=== PATIENT | female | born 1985 | race Caucasian/White ===

== ENCOUNTER 2016-04-26 15:10 | Emergency (ER) | payer OTHER ==
[~2016-04-26 15:10] MED LIST: ADDE25CA PO; ALBU17IN INH; DOXY10CA PO
--- NOTE | 2016-04-26 17:01 | EDDOCDS ---
Nurse's Notes [facility] Name: Caitlin Figueroa Age: 30 yrs Sex: Female : 1985 Arrival Date: 04/26/2016 Time: 15:10 Bed TR8 Private MD: Aman Grant Diagnosis: Cutaneous abscess of left axilla Presentation: 04/26 15:17 Presenting complaint: Patient states: Pt presents with c/o abscess left axilla x 4 dls days. Pt states very painful. Adult Sepsis Screening: The patient does not have new or worsening altered mentation. Patient's respiratory rate is less than 22. Systolic blood pressure is greater than 100. Patient has a qSOFA score of 0- Negative Sepsis Screen. Suicide/Homicide risk assessment- the patient denies having any suicidal and/or homicidal ideations and does not present with any other emotional, behavioral or mental health complaints. Status: Patient is not a director of career services or dependent. Transition of care: patient was not received from another setting of care. 15:17 Acuity: CAPRI Level 4 dls 15:17 Method Of Arrival: Walkin/Carried/Asstd dls Triage Assessment: 15:20 General: Appears in no apparent distress, well nourished, well groomed, Behavior is dls cooperative. Pain: Pain currently is 10 out of 10 on a pain scale. Pt Declines HIV testing. 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 albuterol sulfate 90 mcg/actuation Inhl HFAA 2 puffs as needed Ran Out of this med 2. Chantix 1 mg Oral tab 1 tab 2 times per day - PMHx: Bronchitis; Migraines; - Social history: Smoking status: Patient uses tobacco products, light tobacco smoker. No barriers to communication noted, The patient speaks fluent Dutch. - Family history: Not pertinent. - : The pt / caregiver states he / she is not on anticoagulants. Home medication list is obtained from the patient. - Exposure Risk Screening:: None identified. Screenin:54 Screening information is obtained from the patient. Fall risk: No risks identified. ms18 Assistance ADL's: requires no assistance with activities of daily living. Abuse/DV Screen: The patient / caregiver reports he/she is: not in a situation that causes fear, pain or injury. Nutritional screening: No deficits noted. Advance Directives: There is no living will. home support is adequate. Assessment: 16:54 General: Appears in no apparent distress, comfortable, obese, Behavior is appropriate ms18 for age, cooperative, pleasant. Pain: Location: left axilla Pain currently is 7 out of 10 on a pain scale. Neurological: Level of Consciousness is awake, alert, obeys commands, Oriented to person, place, time. Respiratory: Airway is patent Respiratory effort is even, unlabored. Derm: Skin is pink, warm & dry. abscess noted in pt's L axilla area. Vital Signs: 15:11 BP 148 / 73; Pulse 120; Resp 20 S; Temp 97.3(O); Pulse Ox 96% on R/A; Weight 104.33 kg dd6 (R); Height 5 ft. 5 in. (165.10 cm) (R); 16:49 BP 154 / 88; Pulse 111; Resp 18; Temp 98.5; Pulse Ox 96% on R/A; Pain 0/10; ms18 15:11 Body Mass Index 38.27 (104.33 kg, 165.10 cm) dd6 Vitals: 15:11 Log In Time: April 26, 2016 at 15:09. dd6 ED Course: 15:11 Patient visited by Gilbert Marie PCA. dd6 15:11 Aman Grant MD is Private Physician. dd6 15:11 Patient moved to Waiting dd6 15:12 Patient moved to Pre RCE dd6 15:18 Triage Initiated dls 16:19 Patient moved to Triage 2 ct3 16:29 [facility]born [facility] dk1 16:29 Joi Mcbride MD is Attending Physician. dk1 16:34 Patient visited by Geremias Osborn PA-C. dk1 16:49 Patient visited by Cindi Sams RN. ms18 16:53 Patient moved to TR8 ms18 16:54 Patient visited by Cindi Sams RN. ms18 16:54 The patient / caregiver is instructed regarding the plan of care and ED course. Patient ms18 has correct armband on for positive identification. Property sent home with patient. :Personal belongings accompany Pt. 16:54 No IV's were initiated during this patient's visit. No procedures done that require ms18 assistance. Order Results: There are currently no results for this order. Outcome: 16:45 Discharge ordered by Provider. dk1 16:54 Discharge Assessment: Patient awake, alert and oriented x 3. No cognitive and/or ms18 functional deficits noted. Patient verbalized understanding of disposition instructions. patient administered narcotics - no. The following High Risk Discharge criteria are identified: None. Discharged to home ambulatory. Condition: good Condition: stable Condition: improved. Discharge instructions given to patient, Instructed on discharge instructions, follow up and referral plans. medication usage, Demonstrated understanding of instructions, medications, Pt was receptive of discharge instructions/ teaching. Prescriptions given X 2. No special radiology studies were completed. 16:59 Patient left the ED. ms18 Signatures: Livier Paris, RN RN Geremias Smith PA-C PA-C dk1 Gilbert Marie, TOOL ROOM LATHE OPERATOR TOOL ROOM LATHE OPERATOR dd6 Kaycee Nye, TOOL ROOM LATHE OPERATOR TOOL ROOM LATHE OPERATOR ct3 Cindi Sams RN RN ms18 Corrections: (The following items were deleted from the chart) 16:59 16:54 Discharge instructions given to patient, Instructed on discharge instructions, ms18 follow up and referral plans. medication usage, Demonstrated understanding of instructions, medications, Pt was receptive of discharge instructions/ teaching. Prescriptions given X 1, ms18 MTDD
--- NOTE | 2016-04-26 17:01 | EDDOCDS ---
Physician Documentation [facility] Name: Caitlin Figueroa Age: 30 yrs Sex: Female : 1985 Arrival Date: 04/26/2016 Time: 15:10 Bed TR8 Private MD: Aman Grant Disposition: 04/26/16 16:45 Discharged to Home/Self Care. Impression: Cutaneous abscess of left axilla. - Condition is Stable. - Discharge Instructions: Abscess. - Prescriptions for Tylenol- Codeine #3 300-30 mg Oral Tablet - take 2 tablet by ORAL route every 6 hours As needed MDD: 4 tabs; 6 tablet. Bactrim DS 800- 160 mg Oral Tablet - take 1 tablet by ORAL route every 12 hours for 10 days; 20 tablet. - Medication Reconciliation, Local Pharmacy Hours form. - Follow up: Emergency Department; When: 1 - 2 days; Reason: Recheck today's complaints. - Problem is new. - Symptoms are unchanged. Historical: - Allergies: Tamiflu; - Home Meds: 1. albuterol sulfate 90 mcg/actuation Inhl HFAA 2 puffs as needed Ran Out of this med 2. Chantix 1 mg Oral tab 1 tab 2 times per day - PMHx: Bronchitis; Migraines; - Social history: Smoking status: Patient uses tobacco products, light tobacco smoker. No barriers to communication noted, The patient speaks fluent Croatian. - Family history: Not pertinent. - : The pt / caregiver states he / she is not on anticoagulants. Home medication list is obtained from the patient. - Exposure Risk Screening:: None identified. 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 5 in. (165.10 cm) (R); 16:49 BP 154 / 88; Pulse 111; Resp 18; Temp 98.5; Pulse Ox 96% on R/A; Pain 0/10; ms18 15:11 Body Mass Index 38.27 (104.33 kg, 165.10 cm) dd6 Signatures: Livier Paris RN RN dls Geremias Osborn PA-C PA-C dk1 Cindi Sams,ZULLY RN ms18 MTDD
--- NOTE | 2016-04-28 18:00 | EDDOCDS ---
Physician Documentation [facility] Name: Caitlin Figueroa Age: 30 yrs Sex: Female : 1985 Arrival Date: 04/26/2016 Time: 15:10 Bed TR8 Private MD: Aman Grant Disposition: 04/26/16 16:45 Discharged to Home/Self Care. Impression: Cutaneous abscess of left axilla. - Condition is Stable. - Discharge Instructions: Abscess. - Prescriptions for Tylenol- Codeine #3 300-30 mg Oral Tablet - take 2 tablet by ORAL route every 6 hours As needed MDD: 4 tabs; 6 tablet. Bactrim DS 800- 160 mg Oral Tablet - take 1 tablet by ORAL route every 12 hours for 10 days; 20 tablet. - Medication Reconciliation, Local Pharmacy Hours form. - Follow up: Emergency Department; When: 1 - 2 days; Reason: Recheck today's complaints. - Problem is new. - Symptoms are unchanged. Historical: - Allergies: Tamiflu; - Home Meds: 1. albuterol sulfate 90 mcg/actuation Inhl HFAA 2 puffs as needed Ran Out of this med 2. Chantix 1 mg Oral tab 1 tab 2 times per day - PMHx: Bronchitis; Migraines; - Social history: Smoking status: Patient uses tobacco products, light tobacco smoker. No barriers to communication noted, The patient speaks fluent Indonesian. - Family history: Not pertinent. - : The pt / caregiver states he / she is not on anticoagulants. Home medication list is obtained from the patient. - Exposure Risk Screening:: None identified. 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 5 in. (165.10 cm) (R); 16:49 BP 154 / 88; Pulse 111; Resp 18; Temp 98.5; Pulse Ox 96% on R/A; Pain 0/10; ms18 15:11 Body Mass Index 38.27 (104.33 kg, 165.10 cm) dd6 MDM: 17:03 [facility] Payment Agreement was scanned into [employer] and attached to record. [facility] 17:03 Financial registration complete. gjb 04/27 06:05 T-Sheet-- Draft Copy was scanned into [employer] and attached to record. obinna Signatures: Livier Paris, RN RN Geremias Smith, PAMikeC PAMikeC dk1 Cindi Sams RN RN ms18 Arel, Jasmin Judge The chart was reviewed and I authenticate all verbal orders and agree with the evaluation and treatment provided.Attachments: 04/26 17:03 [place] Payment Agreement b 04/27 06:05 T-Sheet-- Draft Copy obinna Chart Complete MTDD
--- NOTE | 2016-04-28 18:00 | EDDOCDS ---
Nurse's Notes [facility] Name: Caitlin Figueroa Age: 30 yrs Sex: Female : 1985 Arrival Date: 04/26/2016 Time: 15:10 Bed TR8 Private MD: Aman Grant Diagnosis: Cutaneous abscess of left axilla Presentation: 04/26 15:17 Presenting complaint: Patient states: Pt presents with c/o abscess left axilla x 4 dls days. Pt states very painful. Adult Sepsis Screening: The patient does not have new or worsening altered mentation. Patient's respiratory rate is less than 22. Systolic blood pressure is greater than 100. Patient has a qSOFA score of 0- Negative Sepsis Screen. Suicide/Homicide risk assessment- the patient denies having any suicidal and/or homicidal ideations and does not present with any other emotional, behavioral or mental health complaints. Status: Patient is not a director of customer service or dependent. Transition of care: patient was not received from another setting of care. 15:17 Acuity: CAPRI Level 4 dls 15:17 Method Of Arrival: Walkin/Carried/Asstd dls Triage Assessment: 15:20 General: Appears in no apparent distress, well nourished, well groomed, Behavior is dls cooperative. Pain: Pain currently is 10 out of 10 on a pain scale. Pt Declines HIV testing. 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 albuterol sulfate 90 mcg/actuation Inhl HFAA 2 puffs as needed Ran Out of this med 2. Chantix 1 mg Oral tab 1 tab 2 times per day - PMHx: Bronchitis; Migraines; - Social history: Smoking status: Patient uses tobacco products, light tobacco smoker. No barriers to communication noted, The patient speaks fluent Turkmen. - Family history: Not pertinent. - : The pt / caregiver states he / she is not on anticoagulants. Home medication list is obtained from the patient. - Exposure Risk Screening:: None identified. Screenin:54 Screening information is obtained from the patient. Fall risk: No risks identified. ms18 Assistance ADL's: requires no assistance with activities of daily living. Abuse/DV Screen: The patient / caregiver reports he/she is: not in a situation that causes fear, pain or injury. Nutritional screening: No deficits noted. Advance Directives: There is no living will. home support is adequate. Assessment: 16:54 General: Appears in no apparent distress, comfortable, obese, Behavior is appropriate ms18 for age, cooperative, pleasant. Pain: Location: left axilla Pain currently is 7 out of 10 on a pain scale. Neurological: Level of Consciousness is awake, alert, obeys commands, Oriented to person, place, time. Respiratory: Airway is patent Respiratory effort is even, unlabored. Derm: Skin is pink, warm & dry. abscess noted in pt's L axilla area. Vital Signs: 15:11 BP 148 / 73; Pulse 120; Resp 20 S; Temp 97.3(O); Pulse Ox 96% on R/A; Weight 104.33 kg dd6 (R); Height 5 ft. 5 in. (165.10 cm) (R); 16:49 BP 154 / 88; Pulse 111; Resp 18; Temp 98.5; Pulse Ox 96% on R/A; Pain 0/10; ms18 15:11 Body Mass Index 38.27 (104.33 kg, 165.10 cm) dd6 Vitals: 15:11 Log In Time: April 26, 2016 at 15:09. dd6 ED Course: 15:11 Patient visited by Gilbert Marie PCA. dd6 15:11 Aman Grant MD is Private Physician. dd6 15:11 Patient moved to Waiting dd6 15:12 Patient moved to Pre RCE dd6 15:18 Triage Initiated dls 16:19 Patient moved to Triage 2 ct3 16:29 [facility] Osborn [facility]-C [facility]. dk1 16:29 Joi Mcbride MD is Attending Physician. dk1 16:34 Patient visited by Geremias Osborn PA-C. dk1 16:49 Patient visited by Cindi Sams RN. ms18 16:53 Patient moved to TR8 ms18 16:54 Patient visited by Cindi Sams RN. ms18 16:54 The patient / caregiver is instructed regarding the plan of care and ED course. Patient ms18 has correct armband on for positive identification. Property sent home with patient. :Personal belongings accompany Pt. 16:54 No IV's were initiated during this patient's visit. No procedures done that require ms18 assistance. 17:03 [facility] Payment Agreement was scanned into LRN and attached to record. dayanna 04/27 06:05 T-Sheet-- Draft Copy was scanned into LRN and attached to record. ljderrek Order Results: There are currently no results for this order. Outcome: 04/26 16:45 Discharge ordered by Provider. dk1 16:54 Discharge Assessment: Patient awake, alert and oriented x 3. No cognitive and/or ms18 functional deficits noted. Patient verbalized understanding of disposition instructions. patient administered narcotics - no. The following High Risk Discharge criteria are identified: None. Discharged to home ambulatory. Condition: good Condition: stable Condition: improved. Discharge instructions given to patient, Instructed on discharge instructions, follow up and referral plans. medication usage, Demonstrated understanding of instructions, medications, Pt was receptive of discharge instructions/ teaching. Prescriptions given X 2. No special radiology studies were completed. 16:59 Patient left the ED. ms18 Signatures: Livier Paris, RN RN Geremias Smith, PAMikeC PA-C dk1 Gilbert Marie, COMMISSION AUDITOR COMMISSION AUDITOR dd6 Kaycee Nye, COMMISSION AUDITOR COMMISSION AUDITOR ct3 Cindi SamsRN RN ms18 Arel, Jasmin Judge Corrections: (The following items were deleted from the chart) 16:59 16:54 Discharge instructions given to patient, Instructed on discharge instructions, ms18 follow up and referral plans. medication usage, Demonstrated understanding of instructions, medications, Pt was receptive of discharge instructions/ teaching. Prescriptions given X 1, ms18 Chart Complete MTDD
--- NOTE | 2016-04-28 18:00 | EDDOCDS ---
Physician Documentation [facility] Name: Caitlin Figueroa Age: 30 yrs Sex: Female : 1985 Arrival Date: 04/26/2016 Time: 15:10 Bed TR8 Private MD: Aman Grant Disposition: 04/26/16 16:45 Discharged to Home/Self Care. Impression: Cutaneous abscess of left axilla. - Condition is Stable. - Discharge Instructions: Abscess. - Prescriptions for Tylenol- Codeine #3 300-30 mg Oral Tablet - take 2 tablet by ORAL route every 6 hours As needed MDD: 4 tabs; 6 tablet. Bactrim DS 800- 160 mg Oral Tablet - take 1 tablet by ORAL route every 12 hours for 10 days; 20 tablet. - Medication Reconciliation, Local Pharmacy Hours form. - Follow up: Emergency Department; When: 1 - 2 days; Reason: Recheck today's complaints. - Problem is new. - Symptoms are unchanged. Historical: - Allergies: Tamiflu; - Home Meds: 1. albuterol sulfate 90 mcg/actuation Inhl HFAA 2 puffs as needed Ran Out of this med 2. Chantix 1 mg Oral tab 1 tab 2 times per day - PMHx: Bronchitis; Migraines; - Social history: Smoking status: Patient uses tobacco products, light tobacco smoker. No barriers to communication noted, The patient speaks fluent Tristanian. - Family history: Not pertinent. - : The pt / caregiver states he / she is not on anticoagulants. Home medication list is obtained from the patient. - Exposure Risk Screening:: None identified. 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 5 in. (165.10 cm) (R); 16:49 BP 154 / 88; Pulse 111; Resp 18; Temp 98.5; Pulse Ox 96% on R/A; Pain 0/10; ms18 15:11 Body Mass Index 38.27 (104.33 kg, 165.10 cm) dd6 MDM: 17:03 [facility] Payment Agreement was scanned into [employer] and attached to record. [facility] 17:03 Financial registration complete. gjb 04/27 06:05 T-Sheet-- Draft Copy was scanned into [employer] and attached to record. obinna Signatures: Livier Paris, RN RN Geremias Smith, PAMikeC PAMkieC dk1 Cindi Sams RN RN ms18 Arel, Jasmin Judge The chart was reviewed and I authenticate all verbal orders and agree with the evaluation and treatment provided.Attachments: 04/26 17:03 [place] Payment Agreement b 04/27 06:05 T-Sheet-- Draft Copy obinna Chart Complete MTDD
== END 2016-04-26 16:59 | disposition home or self-care (01) ==
LOC: M ED 15:10
DX: L02.412 Cutaneous abscess of left axilla (principal); G43.909 Migraine, unspecified, not intractable, without status migrainosus; Z72.0 Tobacco use; Z79.899 Other long term (current) drug therapy; Z88.8 Allergy status to other drugs, medicaments and biological substances

== ENCOUNTER 2016-06-28 14:44 | Emergency (ER) | payer OTHER ==
[~2016-06-28] VITALS: Ht 165.1 cm; Wt 104.3 kg
[2016-06-28 14:45] VITALS: BP 127/88
== END 2016-06-28 15:25 | disposition left against medical advice (07) ==
LOC: M ED 15:15
DX: R06.02 Shortness of breath (principal); Z88.8 Allergy status to other drugs, medicaments and biological substances; Z79.899 Other long term (current) drug therapy; Z53.29 Procedure and treatment not carried out because of patient's decision for other reasons

== ENCOUNTER → 2016-08-07 | Emergency (ER) | payer OTHER ==
[~2016-08-07] VITALS: Ht 165.1 cm; Wt 108.9 kg
[2016-08-07 01:20] VITALS: BP 145/94
== END | disposition left against medical advice (07) ==
LOC: M ED 02:17
DX: R22.1 Localized swelling, mass and lump, neck (principal); Z53.21 Procedure and treatment not carried out due to patient leaving prior to being seen by health care provider

== ENCOUNTER 2016-08-10 18:08 | Emergency (ER) | payer OTHER ==
[~2016-08-10] VITALS: Ht 165.1 cm; Wt 107.0 kg
[2016-08-10] MEDS ORDERED: ADDE25CA PO (18:20)
[2016-08-10 20:17] VITALS: BP 132/66
== END 2016-08-10 20:15 | disposition home or self-care (01) ==
LOC: M ED 19:15
DX: L02.11 Cutaneous abscess of neck (principal); L03.221 Cellulitis of neck

== ENCOUNTER 2016-10-12 16:35 | Day surgery (SDC) | payer OTHER ==
[~2016-10-12] VITALS: Ht 165.1 cm; Wt 103.9 kg
[2016-10-12] MEDS ORDERED: INCR1INH INH (16:49)
[2016-10-12] MEDS ORDERED: NS 1,000 ML IV SCH (16:58)
[2016-10-12] MEDS ORDERED: ONDANSETRON 4MG/2ML VIAL (J2405) IV ONE (17:00)
[2016-10-12] MEDS: MORPHINE 2 MG/ML 1ML SYRINGE IV PRN ×4 (17:28→23:06)
[2016-10-12 17:47] LABS: BASO # 0.1 K/mm3 (0.0-0.2); BASO % 0.7 % (0.0-1.0); EOS # 0.5 K/mm3 (0.0-0.50); EOS % 3.5 % (0.0-3.0); LARGE UNSTAINED CELL # 0.2 K/mm3 (0.0-0.4); LARGE UNSTAINED CELL % 1.6 % (0.0-4.0); LYMPH # 3.5 K/mm3 (1.5-4.5); LYMPH % 25.6 % (24.0-44.0); MEAN CORPUSCULAR HEMOGLOBIN 28.6 pg (27.0-33.0); MEAN CORPUSCULAR VOLUME 84.3 fl (80.0-96.0); MONO # 0.5 K/mm3 (0.0-0.8); NEUTROPHILS # 8.7 K/mm3 (1.8-7.7); NEUTROPHILS % 64.5 % (36.0-66.0); PLATELET COUNT, AUTOMATED 338 k/mm3 (150-450); RED CELL DISTRIBUTION WIDTH 12.8 % (11.5-14.5); WHITE BLOOD COUNT 13.5 K/mm3 (4.0-10.0)
[2016-10-12 17:56] LABS: CONTROL LINE HCG INT CTR LINE PRESENT
[2016-10-12 18:03] LABS: ALBUMIN 3.5 GM/DL (3.2-5.2); ALBUMIN/GLOBULIN RATIO 1.03 (1.00-1.93); ALKALINE PHOSPHATASE 86 U/L (45-117); ALT/SGPT 22 U/L (12-78); ANION GAP 4 MEQ/L (8-16); AST/SGOT 16 U/L (15-37); BILIRUBIN,DIRECT < 0.1 MG/DL (0.0-0.2); BILIRUBIN,TOTAL 0.3 MG/DL (0.2-1.0); BLOOD UREA NITROGEN 10 MG/DL (7-18); CALCIUM LEVEL 8.6 MG/DL (8.5-10.1); CARBON DIOXIDE LEVEL 29 MEQ/L (21-32); CHLORIDE LEVEL 105 MEQ/L (98-107); CREATININE FOR GFR 0.76 MG/DL (0.55-1.02); GLOMERULAR FILTRATION RATE > 60.0 (>60); GLUCOSE, FASTING 101 MG/DL (70-105); POTASSIUM SERUM 3.9 MEQ/L (3.5-5.1); SODIUM LEVEL 138 MEQ/L (136-145); TOTAL PROTEIN 6.9 GM/DL (6.4-8.2)
--- NOTE | 2016-10-12 18:30 | REPUSA ---
CT of the abdomen and pelvis without contrast Clinical statement: Pain. Technique: Multiple axial CT images were obtained from the base of the lungs to the floor of the pelv is utilizing 5 mm axial slices without administration of contrast. Coronal and sagittal reconstructio ns were also obtained. Comparison: 05/08/2012. Findings: Chest: The visualized lung bases are clear. Abdomen: The kidneys are normal in size bilaterally. There is no evidence of hydronephrosis or nephro lithiasis. The liver, spleen, pancreas, gallbladder and adrenal glands are unremarkable. The aorta de monstrates normal caliber and contour. There is no abdominal lymphadenopathy or ascites. Pelvis: The appendix is thickened and inflamed, measuring 12 mm. No surrounding fluid is appreciated. The remainder of the bowel is unremarkable. The urinary bladder is within normal limits. There is no pelvic lymphadenopathy or ascites. There is a simple right ovarian cyst measuring 3.3 x 3.4 cm. The other pelvic structures appear unremarkable. Bones: There are no suspicious osseous abnormalities seen. Impression: 1. Early acute appendicitis. No evidence of abscess or perforation. 2. Simple right ovarian cyst.
[2016-10-12] MEDS ORDERED: TIZA4CAP3 PO (19:12)
[2016-10-12] MEDS ORDERED: ACETAMINOPHEN TAB 650MG DOSE (2X325MG) PO PRN (19:15)
[2016-10-12] MEDS ORDERED: ONDANSETRON 4MG/2ML VIAL (J2405) IV PRN (19:15)
[2016-10-12] MEDS ORDERED: NORCO, ANEXSIA 5/325MG TABLET (HYDROcodone/ACETAMINOPHEN) PO PRN (19:15)
[2016-10-12] MEDS: LR 1,000 ML IV SCH (19:28)
[2016-10-12] MEDS ORDERED: DOXY100T PO (19:39)
[2016-10-12 21:31] VITALS: BP 127/76
[2016-10-12] MEDS: SENOKOT S TAB PO SCH (22:11)
[2016-10-12] MEDS: metroNIDAZOLE 500 MG in APPROPRIATE DILUENT 1 EA IV SCH (22:11)
[2016-10-12] MEDS: CIPROFLOXACIN 400 MG in APPROPRIATE DILUENT 1 EA IV SCH (23:06)
[2016-10-13] VITALS (9 sets, daily range): BP systolic 133–178; BP diastolic 78–110
--- NOTE | 2016-10-13 04:30 | HPEPDOC ---
General Surgery H&P Date of Admission Oct 12, 2016 at 20:28 History and Physical CHIEF COMPLAINT: Abdominal pain HISTORY OF PRESENT ILLNESS: Patient presents to the emergency room he complains of today history of right-sided lower abdominal pain, nausea and vomiting. Patient reports sudden onset of crampy, then later on becoming sharp and constant right lower quadrant abdominal pain. She reports being nauseated, anorexic with a couple episodes of vomiting. She denies any sick contacts. She denies any prior episodes of similar symptoms. She was seen in the emergency room was evaluated and was found to have evidence for acute appendicitis. ALLERGIES: Please see below. HOME MEDICATIONS: Please see below. PAST MEDICAL HISTORY: ADHD Hyperglycemia PAST SURGICAL HISTORY: Laparoscopic epigastric and umbilical hernia repair (2009 protects composite 20 x 15 cm mesh was placed) PERSONAL/SOCIAL HISTORY: [Denies smoking, alcohol use, or recreational drug use] . REVIEW OF SYSTEMS: GENERAL: [Denies chills, fatigue, fever, weight gain and weight loss]. HEENT: [Denies blurred vision and double vision. Denies ear symptoms. Denies hoarseness]. NECK: [Denies any neck pain]. CARDIOVASCULAR: [Denies chest pain and palpitations]. MUSCULOSKELETAL: [Denies arthralgias, back pain and thrombophlebitis]. SKIN: [Denies rash]. NEUROLOGIC: [Denies headache, stroke and transient ischemic attack]. PSYCHIATRIC: [Denies anxiety and depression]. ENDOCRINE: [Denies thyroid disease]. HEMATOLOGY/ONCOLOGY: [Denies any bleeding or clotting disorder]. HEART: [Denies any chest pains, palpitations, paroxysmal dyspnea, orthopnea]. PULMONARY: [Denies chronic cough, dyspnea and wheezing]. GASTROINTESTINAL: [Denies rectal bleeding, family history of colon cancer, constipation, diarrhea, dysphagia, heartburn and jaundice]. GENITOURINARY: [Denies dysuria, frequency, hematuria and nocturia]. ENDOCRINE: [Denies polydipsia, polyphagia, polyuria, heat or cold intolerance]. INFECTIOUS: [Denies any recent upper respiratory tract infection, UTI, need for use of antibiotics]. NUTRITION: [Reports good appetite]. PHYSICAL EXAMINATION: VITAL SIGNS: Please see below. GENERAL APPEARANCE: [Patient seen at bedside, appears comfortable. Awake, alert , oriented]. HEENT: [Normocephalic, atraumatic. [place] palpebral conjunctivae. Anicteric sclerae. Lips moist]. CHEST: [No chest wall abnormalities. Normal respiratory motion/effort]. NECK: [Supple. No thyromegaly. No lymphadenopathies]. LUNGS: [Lung sounds are clear to auscultation bilaterally. No wheezing appreciated]. HEART: [No chest wall abnormalities. Heart rate and rhythm are regular with no murmurs]. ABDOMEN: [Abdomen is obese, soft, slightly rounded. No hepatosplenomegaly. No umbilical or groin herniations, nondistended. Tender to palpation over right lower quadrant area with localized guarding nontender in other areas of the abdomen. SKIN: [Warm, moist]. EXTREMITIES: [Extremities have no deformities. No edema identified]. NEUROLOGICAL: . ANCILLARIES: . LABORATORY DATA: Please see below. MICROBIOLOGY: Please see below. IMAGING: CT of the abdomen and pelvis The appendix is thickened and inflamed, measuring 12 mm. No surrounding fluid is appreciated. The remainder of the bowel is unremarkable. The urinary bladder is within normal limits. There is no pelvic lymphadenopathy or ascites. There is a simple right ovarian cyst measuring 3.3 x 3.4 cm. The other pelvic structures appear unremarkable. Bones: There are no suspicious osseous abnormalities seen. IMPRESSION AND PLAN: Acute appendicitis with localized peritonitis Unfortunately patient ate while she was in the emergency room right after the CT scan was taken thus we could not take her to the operating room at least 4 the next 6-8 hours to empty out her stomach. She'll be started on IV antibiotics for coverage of the acute appendicitis and we will take her to the operating room once able to do so. We'll provide her with some pain medications and antinausea medication to keep her comfortable. CT scan shows early acute appendicitis. She was advised for need for surgery. Details of procedure its risks and benefits were discussed with the patient. Anticipate some adhesions related to the presence of the mesh on the midline of her abdomen which may make the surgery difficult. Length of stay with most likely depend on how inflamed the appendix is and how she does postoperatively.. Vital Signs Vital Signs Date Time Temp Pulse Resp B/P (MAP) Pulse Ox O2 Delivery O2 Flow Rate FiO2 10/12/16 23:16 18 Room Air 10/12/16 21:31 98.1 91 127/76 (93) 96 I&Os I&O- Last 24 Hours up to 6 AM 10/13/16 06:00 Intake Total 1213 ml Output Total 100 ml Balance 1113 ml Laboratory Data Labs 24H Laboratory Tests 2 10/12/16 17:26: White Blood Count 13.5H, Red Blood Count 4.66, Hemoglobin 13.3, Hematocrit 39.2 , Mean Corpuscular Volume 84.3, Mean Corpuscular Hemoglobin 28.6, Mean Corpuscular Hemoglobin Concent 34.0, Red Cell Distribution Width 12.8, Platelet Count 338, Neutrophils (%) (Auto) 64.5, Lymphocytes (%) (Auto) 25.6, Monocytes ( %) (Auto) 4.0, Eosinophils (%) (Auto) 3.5H, Basophils (%) (Auto) 0.7, Neutrophils # (Auto) 8.7H, Lymphocytes # (Auto) 3.5, Monocytes # (Auto) 0.5, Eosinophils # (Auto) 0.5, Basophils # (Auto) 0.1, Large Unclassified Cells % 1.6 , Large Unclassified Cells # 0.2, Urine Appearance HAZY, Urine Color YELLOW, Urine pH 5.0, Urine Specific [place] 1.024, Urine Protein NEGATIVE, Urine Glucose (UA) NEGATIVE, Urine Ketones TRACEH, Urine Urobilinogen 0.2, Urine Bilirubin NEGATIVE, Urine Leukocyte Esterase NEGATIVE, Urine Blood NEGATIVE, Urine Nitrite NEGATIVE, Urine WBC (Auto) 1, Urine RBC (Auto) 3, Urine Hyaline Casts (Auto) 0, Urine Bacteria (Auto) 1+H, Urine Squamous Epithelial Cells 4, Urine Mucus (Auto) SMALL, Urine Sperm (Auto) , Anion Gap 4L, Glomerular Filtration Rate > 60.0, Calcium Level 8.6, Aspartate Amino Transf (AST/SGOT) 16 , Alanine Aminotransferase (ALT/SGPT) 22, Alkaline Phosphatase 86, Total Bilirubin 0.3, Direct Bilirubin < 0.1, Total Protein 6.9, Albumin 3.5, Albumin/ Globulin Ratio 1.03, Lipase 185, Human Chorionic Gonadotropin, Qual NEGATIVE CBC/BMP Laboratory Tests 10/12/16 17:26 Red Blood Count 4.66, Mean Corpuscular Volume 84.3, Mean Corpuscular Hemoglobin 28.6, Mean Corpuscular Hemoglobin Concent 34.0, Red Cell Distribution Width 12.8 , Neutrophils (%) (Auto) 64.5, Lymphocytes (%) (Auto) 25.6, Monocytes (%) (Auto ) 4.0, Eosinophils (%) (Auto) 3.5 H, Basophils (%) (Auto) 0.7, Neutrophils # ( Auto) 8.7 H, Lymphocytes # (Auto) 3.5, Monocytes # (Auto) 0.5, Eosinophils # ( Auto) 0.5, Basophils # (Auto) 0.1 Microbiology Microbiology 10/12/16 Urine Culture, Received Pending Home Medications Scheduled (Incruse Ellipta) 62.5 Mcg/Inh Inh, 62.5 MCG INH DAILY, (Reported) Amphetamine/Dextroamphetamine (Adderall Xr 25 mg) 1 Cap Cap, 1 CAP PO DAILY, ( Reported) Doxycycline Hyclate (Doxycycline Hyclate) 100 Mg Tab, 100 MG PO BID, (Reported) Scheduled PRN Albuterol Sulfate (Ventolin Hfa) 200 Puff/8 Gm Aers, 2 PUFF INH Q4H PRN for SHORTNESS OF BREATH, (Reported) PT ALL OUT Tizanidine Hydrochloride (Tizanidine HCl) 4 Mg Cap, 4 MG PO TID PRN for MUSCLE SPASMS, (Reported) Allergies Coded Allergies: Oseltamivir (Unverified Adverse Reaction, Unknown, VOMIT, 01/29/16) LAILA FITZPATRICK MD Oct 13, 2016 04:23
[2016-10-13] MEDS: LR 1,000 ML IV SCH ×2 (05:47→11:10)
[2016-10-13] MEDS: NORCO, ANEXSIA 5/325MG TABLET (HYDROcodone/ACETAMINOPHEN) PO PRN ×2 (05:47→19:37)
[2016-10-13] MEDS: metroNIDAZOLE 500 MG in APPROPRIATE DILUENT 1 EA IV SCH ×3 (05:47→22:14)
[2016-10-13] MEDS: SENOKOT S TAB PO SCH ×2 (07:36→19:42)
[2016-10-13] MEDS: CIPROFLOXACIN 400 MG in APPROPRIATE DILUENT 1 EA IV SCH ×2 (11:47→23:28)
[2016-10-13] MEDS ORDERED: LIDOCAINE 1% SDV INJ 30 ML VIAL As Ordered ONE (13:14)
[2016-10-13] MEDS ORDERED: BUPIVACAINE HCL 0.25% 30 ML VIAL As Ordered ONE (13:14)
[2016-10-13] MEDS ORDERED: fentaNYL 250 MCG/5 ML INJECTION (J3010) As Ordered ONE (14:27)
[2016-10-13] MEDS ORDERED: LIDOCAINE 2% INJ 100 MG/5 ML SDV (FOR ANES.) As Ordered ONE (14:27)
[2016-10-13] MEDS ORDERED: PROPOFOL 200 MG/20 ML VIAL As Ordered ONE ×2 (14:27→14:49)
[2016-10-13] MEDS ORDERED: MIDAZOLAM INJ 2 MG/2 ML VIAL (J2250) As Ordered ONE (14:27)
[2016-10-13] MEDS ORDERED: ONDANSETRON 4MG/2ML VIAL (J2405) As Ordered ONE (14:27)
[2016-10-13] MEDS ORDERED: KETOROLAC 60 MG/2 ML VIAL (J1885) As Ordered ONE (14:27)
[2016-10-13] MEDS ORDERED: dexameTHASONE 4 MG/ML 1ML VIAL (J1100) As Ordered ONE (14:27)
[2016-10-13] MEDS ORDERED: ROCURONIUM BROMIDE 50 MG/5 ML VIAL As Ordered ONE (14:27)
[2016-10-13] MEDS ORDERED: SUGAMMADEX SODIUM 500 MG/5 ML VIAL (BRIDION) As Ordered ONE (14:31)
[2016-10-13] MEDS ORDERED: fentaNYL 100 MCG/2 ML INJECTION (J3010) As Ordered ONE (15:03)
[2016-10-13] MEDS: fentaNYL 100 MCG/2 ML INJECTION (J3010) IV PRN ×4 (15:05→15:29)
[2016-10-13] MEDS ORDERED: PERCOCET 5MG/325MG TAB As Ordered ONE (15:14)
[2016-10-13] MEDS ORDERED: PERCOCET 5MG/325MG TAB PO PRN (15:15)
[2016-10-13] MEDS ORDERED: LR 1,000 ML IV SCH (15:15)
[2016-10-13] MEDS ORDERED: HYDROmorphone HCL 1 MG/ML SYRINGE (J1170) IV PRN (15:15)
[2016-10-13] MEDS ORDERED: ONDANSETRON 4MG/2ML VIAL (J2405) IV PRN (15:15)
[2016-10-14 02:00] VITALS: BP 138/72
[2016-10-14] MEDS: metroNIDAZOLE 500 MG in APPROPRIATE DILUENT 1 EA IV SCH (05:23)
[2016-10-14 05:41] LABS: BASO % 0.3 % (0.0-1.0); EOS # 0.1 K/mm3 (0.0-0.50); EOS % 0.6 % (0.0-3.0); LARGE UNSTAINED CELL # 0.1 K/mm3 (0.0-0.4); LARGE UNSTAINED CELL % 0.9 % (0.0-4.0); LYMPH # 2.1 K/mm3 (1.5-4.5); LYMPH % 14.2 % (24.0-44.0); MEAN CORPUSCULAR HEMOGLOBIN 28.7 pg (27.0-33.0); MEAN CORPUSCULAR VOLUME 84.4 fl (80.0-96.0); MONO # 0.5 K/mm3 (0.0-0.8); MONO % 3.4 % (0.0-5.0); NEUTROPHILS % 80.6 % (36.0-66.0); PLATELET COUNT, AUTOMATED 315 k/mm3 (150-450); RED CELL DISTRIBUTION WIDTH 12.8 % (11.5-14.5); WHITE BLOOD COUNT 13.7 K/mm3 (4.0-10.0)
[2016-10-14 06:00] VITALS: BP 142/90
[2016-10-14 06:00] LABS: ANION GAP 6 MEQ/L (8-16); BLOOD UREA NITROGEN 10 MG/DL (7-18); CALCIUM LEVEL 8.7 MG/DL (8.5-10.1); CARBON DIOXIDE LEVEL 26 MEQ/L (21-32); CHLORIDE LEVEL 106 MEQ/L (98-107); CREATININE FOR GFR 0.62 MG/DL (0.55-1.02); GLOMERULAR FILTRATION RATE > 60.0 (>60); GLUCOSE, FASTING 107 MG/DL (70-105); POTASSIUM SERUM 4.2 MEQ/L (3.5-5.1); SODIUM LEVEL 138 MEQ/L (136-145)
[2016-10-14] MEDS: SENOKOT S TAB PO SCH (07:49)
[2016-10-14] MEDS ORDERED: NORCOTAB PO (08:16)
--- NOTE | 2016-10-14 16:47 | IPNPDOC ---
Subjective General Date/Time Seen The patient was seen on 10/14/16 at 08:18. Subject Chief Complaint/History The patient is a 31-year-old female admitted with a reason for visit of Appendicitis. Patient reports some right shoulder pain but otherwise feels better. Tolerating regular diet. Denies nausea or vomiting. Current Medications Current Medications Current Medications Acetaminophen (Tylenol Tab) 650 mg Q4HP PRN PO MILD PAIN or TEMP > 101; Start 10/12/16 at 19:15; Stop 11/11/16 at 19:14 Acetaminophen/ Hydrocodone Bitart ([place], Anexsia 5/325) 1 tab Q4HP PRN PO MODERATE PAIN (PS 5-7); Start 10/12/16 at 19:15; Stop 10/19/16 at 19:14 Acetaminophen/ Hydrocodone Bitart ([place], Anexsia 5/325) 2 tab Q6HP PRN PO SEVERE PAIN (PS 8-10) Last administered on 10/13/16 19:37; Start 10/12/16 at 19 :15; Stop 10/19/16 at 19:14 Ciprofloxacin 400 mg/IV Miscellaneous Supplies 200 ml @ 200 mls/hr Q12H IV Last administered on 10/13/16 23:28; Start 10/13/16 at 00:00; Stop 10/20/16 at 00:00 Fentanyl Citrate (Sublimaze) 25 mcg Q5MP PRN IV MODERATE PAIN (PS 4-7) Last administered on 10/13/16 15:29; Start 10/13/16 at 15:15; Stop 10/13/16 at 16:15 ; Status DC Home Med (Med Rec Complete!) ASDIRECTED XX ; Start 10/12/16 at 19:45; Stop at 19:46; Status DC Hydromorphone HCl (Dilaudid) 0.2 mg Q5MP PRN IV MODERATE/SEVERE PAIN (PS 7-10) ; Start 10/13/16 at 15:15; Stop 10/13/16 at 16:15; Status DC Lactated Ringer's 1,000 ml @ 100 mls/hr Q10H IV Last administered on 15:15; Start 10/13/16 at 15:15; Stop 10/13/16 at 16:15; Status DC Lactated Ringer's 1,000 ml @ 125 mls/hr Q8H IV Last administered on 10/13/16 11:10; Start 10/12/16 at 19:10; Stop 10/13/16 at 16:56; Status DC Metronidazole 500 mg/IV Miscellaneous Supplies 100 ml @ 100 mls/hr Q8H IV Last administered on 10/14/16 05:23; Start 10/12/16 at 22:00; Stop 10/19/16 at 21:59 Morphine Sulfate (Morphine Sulfate Inj) 2 mg Q15M PRN IV MODERATE/SEVERE PAIN ( PS 5-10) Last administered on 10/12/16 23:06; Start 10/12/16 at 17:00; Stop at 23:07; Status DC Ondansetron HCl (ZOFRAN INJection) 4 mg Q4HP PRN IV NAUSEA OR VOMITING; Start 10/13/16 at 15:15; Stop 10/13/16 at 16:15; Status DC Ondansetron HCl (ZOFRAN INJection) 4 mg Q6HP PRN IV NAUSEA OR VOMITING; Start 10/12/16 at 19:15; Stop 11/11/16 at 19:14 Oxycodone/ Acetaminophen (Percocet 5mg/ 325mg Tablet) 1 tab ASDIRECTED PRN PO MODERATE PAIN (PS 4-7) Last administered on 10/13/16 15:10; Start 10/13/16 at 15:15; Stop 10/13/16 at 16:15; Status DC Senna/Docusate Sodium (Senokot S) 1 tab BID PO Last administered on 10/13/16 19:42; Start 10/12/16 at 21:00; Stop 11/11/16 at 20:59 Sodium Chloride 1,000 ml @ 100 mls/hr Q10H IV Last administered on 10/12/16 17:27; Start 10/12/16 at 16:58; Stop 10/12/16 at 19:31; Status DC Allergies Coded Allergies: Oseltamivir (Unverified Adverse Reaction, Unknown, VOMIT, 01/29/16) Objective Physical Examination Examination GENERAL APPEARANCE:[Patient seen, laying in bed, awake, alert, and oriented. Comfortable, in no acute distress]. SKIN: [Warm and moist]. HEENT: [Normocephalic, atraumatic. [place] palpebral conjunctiva, anicteric sclerae. Lips and mucosa appear moist]. NECK: [Supple, no thyromegaly. No obvious jugular venous distention]. LUNGS: [Clear to auscultation bilaterally. No wheezing appreciated]. HEART: [No chest wall abnormalities. Regular rate and rhythm with no murmurs appreciated]. ABDOMEN: Abdomen is , soft, . [No hepatosplenomegaly. No umbilical or groin herniations, nondistended. No noticeable rebound or guarding. No grimacing with palpation. No rebound tenderness. No masses appreciated]. EXTREMITIES: [Extremities have no deformities. No edema identified]. Vital Signs Vital Signs Date Time Temp Pulse Resp B/P (MAP) Pulse Ox O2 Delivery O2 Flow Rate FiO2 10/14/16 06:00 98.8 87 20 142/90 (107) 96 10/13/16 21:10 Room Air 10/13/16 15:05 2 I&Os I&O- Last 24 Hours up to 6 AM 10/14/16 05:59 Intake Total 5445 ml Output Total 2610 ml Balance 2835 ml Laboratory Data Labs 24H Laboratory Tests 2 10/14/16 05:25: White Blood Count 13.7H, Red Blood Count 4.75, Hemoglobin 13.6, Hematocrit 40.1 , Mean Corpuscular Volume 84.4, Mean Corpuscular Hemoglobin 28.7, Mean Corpuscular Hemoglobin Concent 34.0, Red Cell Distribution Width 12.8, Platelet Count 315, Neutrophils (%) (Auto) 80.6H, Lymphocytes (%) (Auto) 14.2L, Monocytes (%) (Auto) 3.4, Eosinophils (%) (Auto) 0.6, Basophils (%) (Auto) 0.3, Neutrophils # (Auto) 11.0H, Lymphocytes # (Auto) 2.1, Monocytes # (Auto) 0.5, Eosinophils # (Auto) 0.1, Basophils # (Auto) 0.0, Large Unclassified Cells % 0.9 , Large Unclassified Cells # 0.1, Anion Gap 6L, Glomerular Filtration Rate > 60.0, Blood Urea Nitrogen 10, Creatinine 0.62, Sodium Level 138, Potassium Level 4.2, Chloride Level 106, Carbon Dioxide Level 26, Calcium Level 8.7 CBC/BMP Laboratory Tests 10/14/16 05:25 Red Blood Count 4.75, Mean Corpuscular Volume 84.4, Mean Corpuscular Hemoglobin 28.7, Mean Corpuscular Hemoglobin Concent 34.0, Red Cell Distribution Width 12.8 , Neutrophils (%) (Auto) 80.6 H, Lymphocytes (%) (Auto) 14.2 L, Monocytes (%) ( Auto) 3.4, Eosinophils (%) (Auto) 0.6, Basophils (%) (Auto) 0.3, Neutrophils # ( Auto) 11.0 H, Lymphocytes # (Auto) 2.1, Monocytes # (Auto) 0.5, Eosinophils # ( Auto) 0.1, Basophils # (Auto) 0.0, Calcium Level 8.7 Microbiology Microbiology 10/12/16 Urine Culture - Final, Complete LAILA FITZPATRICK MD Oct 14, 2016 09:57
== END 2016-10-14 09:00 | disposition home or self-care (01) ==
LOC: M ED 16:57 → M SDC 19:10 → UNDOADMIN 20:28 → M ED INP 20:28 → M MSPAV 21:31 → M ED INP 21:31 → M SDC 10-14 09:00 → UNDODISIN 10-14 09:00
PROVIDERS: ATTEND Surgery
DX: K35.3 Acute appendicitis with localized peritonitis (principal); Z79.899 Other long term (current) drug therapy; Z88.8 Allergy status to other drugs, medicaments and biological substances; J45.909 Unspecified asthma, uncomplicated; F17.210 Nicotine dependence, cigarettes, uncomplicated

== ENCOUNTER → 2017-01-05 | Outpatient (CLI) | payer OTHER ==
[~2017-01-05] MED LIST changes: +DOXY100T PO; +DOXY100T2 PO; -DOXY10CA PO; +INCR1INH INH; +NORCOTAB PO; +TIZA4CAP3 PO
--- NOTE | 2017-01-05 16:21 | REP ---
MRI LUMBAR SPINE WITHOUT AND WITH CONTRAST: 01/05/2017. CLINICAL HISTORY: Low back pain, palpable lump right paramedian low back. COMPARISON: CT abdomen and pelvis 10/12/2016. TECHNIQUE: Sagittal T1, T2 and STIR images with axial T1-T2 sequences provided. After infusion of 20 mL of ProHance, sagittal fat suppressed T1 and standard axial T1 images through the lumbar spine were performed. Markers are placed above and below the palpable lump. FINDINGS: The normal lordosis is reduced with straightening of the spine similar to that on the CT in September. Vertebral body heights and marrow signal from the midbody of T11-S3 are noted and unremarkable. There is slight loss of disc height and disc water signal at the L4-5 level. The other disc space heights and disc water signal maintained throughout. Conus terminates at the L1-2 level. The T11-12, T12-L1, L1-2, L2-3 and L3-4 disc levels show no disc bulge herniation and no spinal or foraminal stenosis. At L4-5 there is a left lateral disc protrusion into the foramen. This causes loss of perineural fat and some mild nerve root compression of the left L4 root. The right L4 root has loss of perineural fat to a lesser degree without any nerve root compression. A broad-based disc bulge also noted L4-5 causes some mild central canal stenosis with some crowding of roots. At L5-S1 mild broad-based disc bulge, this extends into the foramina. The bulge abuts both S1 nerve roots, more left than right central canal without stenosis. The foramina are adequate. Contrast images show no evidence of abnormal dural enhancement with the cord and nerve roots showing no enhancement or evidence of enhancing abnormalities in the vertebral bodies, endplates or discs. Subcutaneous soft tissues adjacent to the markers at the palpable site show a discrete encapsulated lipoma with thickening of the subcutaneous fat on the right paramedian compared to the left paramedian region posterior to the paraspinal musculature, this is at the level of L4-5 and the L5 vertebral body on the sagittal reconstructions. No other findings. Visualized portions of the aorta and iliac vessels intact. Lower poles of kidneys seen in part were unremarkable. Impression: 1. There is a broad-based disc bulge at L4-5 causing mild central canal stenosis but also a fairly large left lateral disc protrusion into the foramen causing foraminal stenosis and some compression of the L4 nerve root on the left side. Disc bulge on the right into the foramen without significant stenosis. 2. Broad-based disc bulge at L5-S1 contributing to some mild loss of perineural fat bilaterally but not causing any direct compression of the L5 nerve roots and their central canal was adequate. 3. Encapsulated lipoma best seen on the sagittal compared to the axial images but without abnormal enhancement within the lesion. There is asymmetric thickening of the subcutaneous fat in this region which is directly behind the L4-5 disc level and vertebral body in the right paramedian subcutaneous tissues. No other finding. Signed by Juan Wray MD 01/05/2017 04:21 P
== END ==
LOC: M RAD 11:01
PROVIDERS: ATTEND Nurse Practitioner Family
DX: M51.26 Other intervertebral disc displacement, lumbar region (principal); M51.27 Other intervertebral disc displacement, lumbosacral region
CPT/HCPCS: 72158; A9576

== ENCOUNTER → 2017-05-14 | Outpatient (REF) | payer OTHER ==
[2017-05-18 00:06] LABS: H PYLORI STOOL ANTIGEN Negative (Negative)
== END ==
LOC: M LAB 07:00
DX: K21.9 Gastro-esophageal reflux disease without esophagitis (principal)

== ENCOUNTER 2017-05-28 09:51 | Emergency (ER) | payer OTHER ==
[2017-05-28] MEDS: KETOROLAC 60 MG/2 ML VIAL (J1885) IM (10:28)
[2017-05-28] MEDS: methylPREDNISolone INJ 125 MG/2 ML VIAL (J2930) IM (10:28)
== END 2017-05-28 11:00 | disposition home or self-care (01) ==
LOC: M ED 09:51
DX: M54.41 Lumbago with sciatica, right side (principal); J45.909 Unspecified asthma, uncomplicated; E66.8 Other obesity; Z79.899 Other long term (current) drug therapy; Z79.51 Long term (current) use of inhaled steroids; Z88.8 Allergy status to other drugs, medicaments and biological substances; F17.210 Nicotine dependence, cigarettes, uncomplicated
CPT/HCPCS: J1885

== ENCOUNTER 2017-09-05 11:13 | Emergency (ER) | payer OTHER | END 2017-09-05 12:27 | disposition home or self-care (01) | LOC: M ED 11:13 | DX: L03.115 Cellulitis of right lower limb (principal); A49.02 Methicillin resistant Staphylococcus aureus infection, unspecified site; Z86.19 Personal history of other infectious and parasitic diseases; F41.9 Anxiety disorder, unspecified; F32.9 Major depressive disorder, single episode, unspecified; K21.9 Gastro-esophageal reflux disease without esophagitis; Z87.442 Personal history of urinary calculi; F17.210 Nicotine dependence, cigarettes, uncomplicated; Z88.8 Allergy status to other drugs, medicaments and biological substances; Z79.899 Other long term (current) drug therapy | CPT/HCPCS: 99283 ==

== ENCOUNTER → 2018-01-04 | Outpatient (CLI) | payer OTHER | LOC: M SLEEP HO 14:18 | DX: G47.00 Insomnia, unspecified (principal) | CPT/HCPCS: G0399 ==

== ENCOUNTER → 2018-01-24 | Outpatient (CLI) | payer OTHER ==
[2018-01-24 13:56] LABS: HEMATOCRIT 40.7 % (36.0-47.0); HEMOGLOBIN 13.3 g/dl (12.0-15.5); MEAN CORPUSCULAR HEMOGLOBIN 27.9 pg (27.0-33.0); MEAN CORPUSCULAR HGB CONC 32.7 g/dl (32.0-36.5); MEAN CORPUSCULAR VOLUME 85.3 fl (80.0-96.0); PLATELET COUNT, AUTOMATED 329 10^3/uL (150-450); RED BLOOD COUNT 4.77 10^6/uL (4.00-5.40); RED CELL DISTRIBUTION WIDTH 12.5 % (11.5-14.5); WHITE BLOOD COUNT 11.8 10^3/uL (4.0-10.0)
[2018-01-24 14:22] LABS: AMMONIA 36 uMOL/L (<32)
[2018-01-24 14:29] LABS: ALBUMIN 3.4 GM/DL (3.2-5.2); ALBUMIN/GLOBULIN RATIO 0.89 (1.00-1.93); ALKALINE PHOSPHATASE 87 U/L (45-117); ALT/SGPT 22 U/L (12-78); ANION GAP 9 MEQ/L (8-16); AST/SGOT 17 U/L (7-37); BILIRUBIN,TOTAL 0.2 MG/DL (0.2-1.0); BLOOD UREA NITROGEN 6 MG/DL (7-18); CALCIUM LEVEL 8.4 MG/DL (8.5-10.1); CARBON DIOXIDE LEVEL 29 MEQ/L (21-32); CHLORIDE LEVEL 104 MEQ/L (98-107); CREATININE FOR GFR 0.78 MG/DL (0.55-1.30); GLOMERULAR FILTRATION RATE > 60.0 (>60); GLUCOSE, FASTING 140 MG/DL (70-100); SODIUM LEVEL 142 MEQ/L (136-145); THYROID STIMULATING HORMONE 0.888 uIU/ML (0.358-3.740); TOTAL PROTEIN 7.2 GM/DL (6.4-8.2)
[2018-01-24 14:33] LABS: ESTIMATED AVERAGE GLUCOSE 126 MG/DL (60-110)
== END ==
LOC: M LAB 13:29
DX: R40.0 Somnolence (principal)
CPT/HCPCS: 82140

== ENCOUNTER → 2018-03-29 | Outpatient (REF) | payer OTHER | LOC: M SFHCPLAZ 11:49 | DX: Z12.72 Encounter for screening for malignant neoplasm of vagina (principal) | CPT/HCPCS: 88142 ==

== ENCOUNTER 2018-04-04 08:25 | Emergency (ER) | payer OTHER ==
[2018-04-04] MEDS: NS 1,000 ML IV (09:27)
[2018-04-04 09:31] LABS: BASO # 0.1 10^3/uL (0.0-0.2); BASO % 0.5 % (0.0-1.0); EOS # 0.6 10^3/uL (0.0-0.50); HEMATOCRIT 41.6 % (36.0-47.0); HEMOGLOBIN 13.6 g/dl (12.0-15.5); IMMATURE GRANULOCYTE % 0.3 % (0-3.0); LYMPH % 28.9 % (24.0-44.0); MEAN CORPUSCULAR HGB CONC 32.7 g/dl (32.0-36.5); MEAN CORPUSCULAR VOLUME 85.8 fl (80.0-96.0); MONO # 0.7 10^3/uL (0.0-0.8); MONO % 6.7 % (0.0-5.0); NEUTROPHILS % 57.6 % (36.0-66.0); PLATELET COUNT, AUTOMATED 343 10^3/uL (150-450); RED BLOOD COUNT 4.85 10^6/uL (4.00-5.40); RED CELL DISTRIBUTION WIDTH 12.8 % (11.5-14.5); WHITE BLOOD COUNT 10.3 10^3/uL (4.0-10.0)
[2018-04-04] MEDS: CLINDAMYCIN 900 MG in APPROPRIATE DILUENT 1 EA IV (09:48)
[2018-04-04 09:59] LABS: ANION GAP 6 MEQ/L (8-16); BLOOD UREA NITROGEN 10 MG/DL (7-18); C REACTIVE PROTEIN QUANTITATIV 0.72 MG/DL (0.00-0.30); CALCIUM LEVEL 8.2 MG/DL (8.5-10.1); CARBON DIOXIDE LEVEL 26 MEQ/L (21-32); CHLORIDE LEVEL 105 MEQ/L (98-107); CREATININE FOR GFR 0.59 MG/DL (0.55-1.30); GLOMERULAR FILTRATION RATE > 60.0 (>60); GLUCOSE, FASTING 92 MG/DL (70-100); POTASSIUM SERUM 4.5 MEQ/L (3.5-5.1); SODIUM LEVEL 137 MEQ/L (136-145)
== END 2018-04-04 11:17 | disposition home or self-care (01) ==
LOC: M ED 08:25
DX: L03.114 Cellulitis of left upper limb (principal); F17.210 Nicotine dependence, cigarettes, uncomplicated
CPT/HCPCS: 80048

== ENCOUNTER 2018-07-29 10:20 | Emergency (ER) | payer OTHER ==
[~2018-07-29] VITALS: Ht 165.1 cm; Wt 104.9 kg
[2018-07-29 10:20] VITALS: BP 142/68
[~2018-07-29 10:20] MED LIST changes: +BACT800T5 PO; +BUPR1TAB53 PO; +CLEO300C2 PO; +HYDR-3715 PO; +IBUP-1022 PO; +LORA-243 PO; -NORCOTAB PO; +PRED20TA PO; +SUCR1TA PO; +TIZA4CAP PO; -TIZA4CAP3 PO; +ULTR50TA8 PO; +VARE1TA PO
[2018-07-29] MEDS: LIDOCAINE W/EPINEPHRINE 1% 20ML VIAL SC ONE (10:38)
[2018-07-29] MEDS ORDERED: IBUP1TAB7 PO (10:52)
[2018-07-29] MEDS ORDERED: BACT800T5 PO (10:52)
== END 2018-07-29 11:03 | disposition home or self-care (01) ==
LOC: M ED 10:20
DX: L02.31 Cutaneous abscess of buttock (principal); J45.909 Unspecified asthma, uncomplicated; K21.9 Gastro-esophageal reflux disease without esophagitis; F90.9 Attention-deficit hyperactivity disorder, unspecified type; F17.200 Nicotine dependence, unspecified, uncomplicated; Z98.890 Other specified postprocedural states; Z88.8 Allergy status to other drugs, medicaments and biological substances

== ENCOUNTER → 2018-09-11 | Day surgery (SDC) | payer OTHER ==
[~2018-09-11] VITALS: Ht 165.1 cm; Wt 106.6 kg
[~2018-09-11] MED LIST changes: +IBUP1TAB7 PO; +LIDOCAINE 1% MDV 20ML VIAL SQ PRN; +LR 1,000 ML IV SCH; +VENTAER INH
[2018-09-11 06:41] LABS: URINE PREG TEST NEGATIVE (NEGATIVE)
[2018-09-11 06:49] VITALS: BP 138/87
== END | disposition home or self-care (01) ==
LOC: M SDC 05:59
PROVIDERS: ATTEND Surgery
DX: L05.91 Pilonidal cyst without abscess (principal); Z53.09 Procedure and treatment not carried out because of other contraindication; J00 Acute nasopharyngitis [common cold]

== ENCOUNTER 2018-12-02 13:59 | Emergency (ER) | payer OTHER ==
[~2018-12-02] VITALS: Ht 165.1 cm; Wt 108.2 kg
[2018-12-02 13:59] VITALS: BP 163/88
[~2018-12-02 13:59] MED LIST changes: -LIDOCAINE 1% MDV 20ML VIAL SQ PRN; -LR 1,000 ML IV SCH
[2018-12-02] MEDS ORDERED: IBUP-1022 PO (14:37)
--- NOTE | 2018-12-02 14:39 | REP ---
REASON: Pain after trauma. FINDINGS: No acute fracture or destructive osseous lesion. Electronically Signed by Bradley Lemos DO 12/02/2018 02:59 P
--- NOTE | 2018-12-02 14:40 | REP ---
REASON: Trauma. COMPARISON: No priors. FINDINGS: No acute fracture or destructive osseous lesion. The mortise is intact. Small plantar and retrocalcaneal heel spurs are present. Electronically Signed by Bradley Lemos DO 12/02/2018 02:59 P
== END 2018-12-02 15:25 | disposition home or self-care (01) ==
LOC: M ED 13:59
DX: S63.502A Unspecified sprain of left wrist, initial encounter (principal); S93.401A Sprain of unspecified ligament of right ankle, initial encounter; W01.0XXA Fall on same level from slipping, tripping and stumbling without subsequent striking against object, initial encounter; Y92.128 Other place in nursing home as the place of occurrence of the external cause; Z79.899 Other long term (current) drug therapy; Z88.8 Allergy status to other drugs, medicaments and biological substances; F17.210 Nicotine dependence, cigarettes, uncomplicated

== ENCOUNTER 2018-12-11 10:36 | Emergency (ER) | payer OTHER ==
[~2018-12-11] VITALS: Ht 165.1 cm; Wt 109.4 kg
[2018-12-11 10:37] VITALS: BP 160/80
[2018-12-11] MEDS ORDERED: DEBR6.5S4 OTIC (12:34)
[2018-12-11] MEDS ORDERED: [UNRECOGNIZED DRUG - OTHER] (12:34)
[2018-12-11] MEDS ORDERED: CIPRODEX AS (13:31)
[2018-12-11] MEDS ORDERED: CIPR-249 PO (13:31)
== END 2018-12-11 13:37 | disposition home or self-care (01) ==
LOC: M ED 10:36
DX: H66.92 Otitis media, unspecified, left ear (principal); H60.92 Unspecified otitis externa, left ear; F17.200 Nicotine dependence, unspecified, uncomplicated; J44.9 Chronic obstructive pulmonary disease, unspecified; K21.9 Gastro-esophageal reflux disease without esophagitis; Z79.899 Other long term (current) drug therapy; Z88.8 Allergy status to other drugs, medicaments and biological substances; F17.210 Nicotine dependence, cigarettes, uncomplicated

== ENCOUNTER → 2019-01-11 | Outpatient (CLI) | payer OTHER ==
[~2019-01-11] MED LIST changes: +CIPR-249 PO; +CIPRODEX AS; +DEBR6.5S4 OTIC; +[UNRECOGNIZED DRUG - OTHER]
--- NOTE | 2019-01-27 02:00 | ECWPNPC ---
PATIENT NAME: TAWNYA BELLO : 1985 GENDER: FEMALE VISIT DATE: 01/11/2019 DISCHARGE DATE: 01/11/191641 VISIT LOCKED DATE TIME: PHYSICIAN: SERENA WIGGINS MD RESOURCE: SERENA WIGGINS MD REASON FOR APPOINTMENT 1. LBP HISTORY OF PRESENT ILLNESS HISTORY OF PRESENT ILLNESS: PAIN THE PATIENT DESCRIBES THE PAIN... 33 YEAR OLD FEMALE PATIENT WITH A HISTORY OF CHRONIC LOW BACK AND LEG PAIN. THE PATIENT DESCRIBES THE PAIN ACHING, SHARP, STABBING, SHOCKS, DAILY, AND CONTINUOUS WITH A PAIN SCORE OF 7-10/10 DEPENDING ON PHYSICAL ACTIVITY. THE PATIENT SAYS HER PAIN BEGINS IN HER LOW BACK WITH RADIATING PAIN AND NUMBNESS DOWN MAINLY HER RIGHT LEG. THE PATIENT SAYS HER PAIN SPONTANEOUSLY STARTED A COUPLE YEARS AGO. 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 THE PATIENT SAYS SHE IS USING IBUPROFEN WHEN HER PAIN IS SEVERE, HOWEVER IT DOES NOT HELP TOUCH THE PAIN, BUT IT DOES HELP WITH SWELLING. PATIENT DENIES UNEXPLAINABLE WEIGHT LOSS, FEVER, CHILLS, NEW CHANGES ON HER URINARY OR BOWEL CONTROL. THE PATIENT MENTIONED SHE HAS A HISTORY OF URINARY INCONTINENCE DUE TO ISSUES WITH UTERINE MUSCLES THAT IS BEING FOLLOWED BY HER PRIMARY CARE. FALL RISK SCREENING: SCREENING :NO FALLS REPORTED IN THE LAST YEAR CURRENT MEDICATIONS TAKING NEXPLANON 68 MG IMPLANT SUBCUTANEOUS , NOTES: 07/2017, DUE FOR REMOVAL 07/2020 TAKING IBUPROFEN 600 MG TABLET 1 TABLET WITH FOOD ORALLY THREE TIMES A DAY NEEDED FOR PAIN TAKING INCRUSE ELLIPTA 62.5 MCG/INH AEROSOL POWDER BREATH ACTIVATED 1 PUFF INHALATION ONCE A DAY TAKING ALBUTEROL SULFATE HFA 108 (90 BASE) MCG/ACT AEROSOL SOLUTION 2 PUFFS INHALATION FOUR TIMES DAILY NEEDED TAKING LORATADINE 10 MG TABLET 1 TABLET ORALLY ONCE A DAY TAKING ADDERALL XR 25 MG CAPSULE EXTENDED RELEASE 24 HOUR 1 CAPSULE IN THE MORNING ORALLY ONCE DAILY (MDD #1). DX: F90.8, CODE B NOT-TAKING FLUTICASONE PROPIONATE 50 MCG/ACT SUSPENSION 1 SPRAY IN EACH NOSTRIL NASALLY ONCE A DAY NOT-TAKING CIPRODEX 0.3-0.1 % SUSPENSION 4 DROPS INTO THE LEFT EAR OTIC TWICE A DAY MEDICATION LIST REVIEWED AND RECONCILED WITH THE PATIENT PAST MEDICAL HISTORY ATTENTION DEFICIT DISORDER WITH HYPERACTIVITY HYPERGLYCERIDEMIA HISTORY OF URINARY INCONTINENCE POST ALLERGIES TAMIFLU: NAUSEA/VOMITING - ALLERGY SURGICAL HISTORY VENTRAL HERNIA REPAIR ([facility]) 2010 APPENDECTOMY 2016 FAMILY HISTORY FATHER: 50 YRS, MVA; WAS KNOWN TO HAVE COPD MOTHER: ALIVE SIBLINGS: HALF-BROTHERS (3) - 1 WITH AUTISM SPECTRUM DISORDER HALF-SISTER (1) - NO KNOWN MEDICAL PROBLEMS SON(S): ALIVE DAUGHTER(S): ALIVE 1 SON(S) , 1 DAUGHTER(S) - HEALTHY. SOCIAL HISTORY GENERAL: TOBACCO USE ARE YOU A:CURRENT SMOKER ARE YOU INTERESTED IN QUITTING?READY TO QUIT COUNSELED THE PATIENT ON TOBACCO USE, CESSATION [id number]/19/2019 HOW MANY CIGARETTES A DAY DO YOU SMOKE?5 OR LESS HOW SOON AFTER YOU WAKE UP DO YOU SMOKE YOUR FIRST CIGARETTE?31-60 MIN HOW OFTEN DO YOU SMOKE CIGARETTES?EVERY DAY PATIENT COUNSELED ON THE DANGERS OF TOBACCO USE AND URGED TO QUIT:12/22/2018 SMOKING CESSATION INFORMATION GIVEN12/22/2018 HIV / HEP-C SCREENING HIV TEST OFFERED TO PATIENT:NO HEP-C TEST OFFERED TO PATIENT:NO OTHERS AT HOME: 2 CHILD. HOUSING: RENTS APARTMENT. EDUCATION LEVEL OF EDUCATION:NOT FINISHED HIGH SCHOOL 10TH GRADE DIET: REGULAR, CUT OUT SWEETS. LANGUAGE LANGUAGES SPOKEN:[place] DOMESTIC VIOLENCE DO YOU FEEL SAFE IN YOUR ENVIRONMENT?YES BMI CARE GOAL FOLLOW-UP ABOVE NORMAL BMI FOLLOW-UPLIFESTYLE EDUCATION REGARDING DIET RECREATIONAL DRUG USE DRUG USE?YES HOW OFTEN AND HOW MUCH? MARIJUANNA BID EXERCISE: NO REGULAR EXERCISE, LIKES TO WALK AND CONTACT PERSON. LEARNING BARRIERS / SPECIAL NEEDS CHANGE FROM LAST VISIT?NO BARRIERS TO LEARNING?NO HEARING IMPAIRED?NO VISION IMPAIRED?YES COGNITIVELY IMPAIRED?NO : CAN'T SEE FAR WAY, SAID SHE NEEDS TO GO TO AN EYE DOCTOR READINESS TO LEARN?YES LEARNING PREFERENCES?NO LEARNING CAPABILITIES PRESENT?YES EMOTIONAL BARRIERS?NO SPECIAL DEVICES?NO MANAGER APPOINTMENT NEEDED?NO PAIN CLINIC PFS, CLERGY, PUBLIC HEALTH REFERRALS HAS THE PATIENT BEEN EDUCATED REGARDING HIS/HER PLAN OF CARE?YES HAS THE PATIENT BEEN EDUCATED REGARDING PAIN, THE RISK FOR PAIN, THE IMPORTANCE OF EFFECTIVE PAIN MANAGEMENT, AND THE PAIN ASSESSMENT PROCESS?YES LATEX QUESTIONNAIRE LATEX ALLERGY : HAVE YOU EVER DEVELOPED ANY TYPE OF REACTION AFTER HANDLING LATEX PRODUCTS SUCH RUBBER GLOVES, CONDOMS, DIAPHRAGMS, BALLOONS, SOCKS, OR UNDERWEAR?NO LATEX ALLERGY : HAVE YOU EVER DEVELOPED ANY TYPE OF REACTION DURING OR AFTER DENTAL APPOINTMENT, VAGINAL/RECTAL EXAMINATION, SURGICAL PROCEDURE, OR ANY OTHER EXPOSURE?NO DATE ASKED : 08/21/2018 LATEX RISK : HAVE YOU EVER HAD ANY DIFFICULTY BREATHING OR HIVES AFTER EATING OR HANDLING ANY FRUITS, OR VEGETABLES; SUCH KIWI, BANANAS, STONE FRUITS, OR CHESTNUTSNO LATEX RISK : DO YOU HAVE A PREVIOUS PERSONAL HISTORY OF MORE THAN NINE SURGERIES, SPINA BIFIDA, OR REPEATED CATHERIZATIONS? NO LATEX RISK : ARE YOU FREQUENTLY EXPOSED TO LATEX PRODUCTS IN YOUR OCCUPATION?NO CAFFEINE OCCASIONAL ONLY. ADVANCE DIRECTIVE ADVANCE DIRECTIVE DISCUSSED WITH PATIENT:YES DECLINED SABIANISM [id number] NONE NO MANDAEN BELIEFS THAT WOULD IMPACT HEALTH CARE. ALCOHOL SCREENING POINTS: 1, INTERPRETATION: NEGATIVE. 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 SEXUAL HX HAD SEX IN THE LAST 12 MONTHS (VAGINAL, ORAL, OR ANAL)?YES WITHMEN ONLY USE PROTECTION?YES HOW OFTEN?ALL OF THE TIME HOSPITALIZATION/MAJOR DIAGNOSTIC PROCEDURE RELATED TO SURGERY AND CHILDBIRTH REVIEW OF SYSTEMS REVIEWED BY: PROVIDER: SERENA WIGGINS MD . CONSTITUTIONAL: ANY CHANGE IN YOUR MEDICAL CONDITION? NO . CHILLS NO . FEVER NO . INFECTION: DO YOU HAVE NEW INFECTIONS? NO . DO YOU HAVE HISTORY OF MRSA? YES . MUSCULOSKELETAL: ANY NEW PATTERNS OF PAIN OR NUMBNESS? NO . GASTROENTEROLOGY: ANY NEW CHANGE IN BOWEL CONTROL? NO . GENITOURINARY: ANY NEW CHANGE IN BLADDER CONTROL? YES, INCONTINCE, PCP AWARE . IS THERE A CHANCE YOU COULD BE ? NO . HEMATOLOGY/LYMPH: DO YOU TAKE ANY BLOOD THINNERS? (FOR EXAMPLE- COUMADIN, PLAVIX, AGGRENOX, PLATEL, PRADAXA, OR XARELTO) NO . WHEN WAS YOUR LAST DOSE? DATE: TIME: . NEUROLOGY: HAVE YOU FALLEN IN THE PAST 12 MONTHS? YES, PT FELL 2 MOS AGO FELL ON WET FLOOR, PT INJURED HER RIGHT ANKLE, PT WAS SEEN AND TREATED AT [facility] ER, PT WAS TOLD SHE INJURED HER TENDON . ANY NEW EXTREMITY NUMBNESS OR WEAKNESS? NO . CARDIOLOGY: DO YOU HAVE A PACEMAKER OR DEFIBRILLATOR? NO . RESPIRATORY: HAVE YOU BEEN SICK IN THE PAST WEEK? YES, URI . FEVER NO . FLU LIKE SYMPTOMS? NO . COUGH YES, PRODUCTIVE YELLOW MUCOUS . INTEGUMENTARY: DO YOU HAVE ANY RASHES OR OPEN SORES? YES, TO RIGHT TOE . ALLERGIC/IMMUNO: ARE YOU ALLERGIC TO IV DYE? NO . ANY NEW ALLERGIES? NO . PSYCHIATRIC: DO YOU HAVE THOUGHTS OF HURTING YOURSELF OR SOMEONE ELSE? NO . ARE YOU ABUSED, NEGLECTED, OR IN AN UNSAFE ENVIRONMENT? NO . ENDOCRINOLOGY: ARE YOU DIABETIC? NO . OTHER: DO YOU NEED ANY PRESCRIPTIONS? NO . IF YES, PLEASE LIST: ____ . ANY NEW PROBLEMS WITH YOUR MEDICATIONS? NO . WHEN DID YOU LAST EAT? ____ . WHEN DID YOU LAST DRINK? ____ . WHAT DID YOU LAST DRINK? ____ . NAME OF PERSON DRIVING YOU HOME? ____ . DO YOU HAVE ANY OTHER QUESTIONS OR CONCERNS NO . VITAL SIGNS WT 238.8 LBS, HT 65 IN, BMI 39.73 INDEX, BP 158/77 MM HG, HR 120 /MIN, RR 18 /MIN, TEMP 98.6 F, OXYGEN SAT % 93%, NA INITIALS AW 1402, REVIEWED BY: EM. EXAMINATION GENERAL EXAMINATION: PATIENT IS ALERT O X 3 AND COOPERATIVE. LUNGS- SOME WHEEZING WITH DEEP INSPIRATION. HEART: NO MURMURS OR GALLOPS; FACIAL CRANIAL NERVES ARE GROSSLY NORMAL. GOOD SYMMETRY OF FACIAL MUSCLE MOVEMENT. NORMAL VISUAL WAITE. ANTALGIC WALK. TENDERNESS IN THE LOW BACK. PRESENCE OF BANDS OF TISSUE AND TRIGGER POINTS WITH RESTRICTION OF MOVEMENT OF THE LOW BACK. RIGHT LEG IS WEAKER AT EXTENSION AND FLEXION. STRAIGHT LEG RAISE OF THE RIGHT LEG IS POSITIVE AT 40 DEGREES FOR RADICULOPATHY. MRI OF THE LUMBAR SPINE DONE ON 01/05/2017 SHOWS BULGING DISC AT MULTIPLE LEVELS, COMPRESSION OF LEFT L4 ROOT, AND AN ENCAPSULATED LIPOMA OVER AREA OF L4-L5. ASSESSMENTS LUMBAGO WITH SCIATICA, LEFT SIDE - M54.42 (PRIMARY) LUMBAGO WITH SCIATICA, RIGHT SIDE - M54.41 OTHER CHRONIC PAIN - G89.29 MYALGIA, OTHER SITE - M79.18 INTERVERTEBRAL DISC DISORDER WITH RADICULOPATHY OF LUMBAR REGION - M51.16 HISTORY OF ASTHMA - Z87.09 TREATMENT LUMBAGO WITH SCIATICA, LEFT SIDE CLINICAL NOTES: WE DISCUSSED SEVERAL ISSUES WITH MS. BELLO'S PAIN MANAGEMENT CASE. I AM REQUESTING FOR NEW LUMBAR MRI'S WITH AND WITHOUT CONTRAST TO BE DONE TO RECEIVE AN UPDATED STUDY IN ORDER TO BETTER UNDERSTAND WHAT IS CAUSING THE PATIENT'S BACK AND LEG PAIN. I DISCUSSED WITH DR. MAI, RADIOLOGIST, ABOUT WHETHER CONTRAST IS NEEDED FOR THE MRI TO VIEW THE PATIENT'S LIPOMA. I WANT TO ENSURE THE LIPOMA IS NOT A LIPOSARCOMA. I AM ORDERING FOR A BUN AND CREATININE TEST TO BE DONE FOR THE MRI CONTRAST. DEPENDING ON THE MRI RESULTS, I WILL CONSIDER LOW BACK TRIGGER POINT INJECTIONS OR LUMBAR EPIDURAL. THE PATIENT HAS HISTORY OF ASTHMA, THEREFORE I MAY CONSIDER DOING RESPIRATORY THERAPY BEFORE THE PROCEDURE. THE PATIENT WILL FOLLOW UP IN 2 WEEKS TO GO OVER THE MRI RESULTS. INSTRUCTIONS WERE GIVEN, QUESTIONS WERE ANSWERED, PATIENT REPORTS UNDERSTANDING AND AGREES WITH THE PLAN. I, GERARDO SCHWARTZ, DOCUMENTED THE ABOVE INFORMATION ACTING A SCRIBE FOR DR. WIGGINS. I HAVE REVIEWED THE ABOVE DOCUMENT, WRITTEN BY GERARDO SCHWARTZ SCRIBGladis AND I VERIFY THAT IT IS ACCURATE. DEAR FREDERICK CALL MD: THANK YOU FOR YOUR KIND REFERRAL OF TAWNYA BELLO. IF YOU WANT TO DISCUSS HER CASE WITH ME PLEASE CALL ME AT THE PAIN CENTER AT [phone]. SINCERELY, SERENA WIGGINS MD PAIN MEDICINE . PROCEDURE CODES G8427 CURRENT MEDS W/DOSAGES DOCUMENTED G8730 PAIN ASSESS POS TOOL F/U PLAN DOC DISPOSITION & COMMUNICATION FOLLOW UP 2 WEEKS (REASON: LS MRI W/ AND W/O CONTRAST) ELECTRONICALLY SIGNED BY SERENA WIGGINS MD, MD ON 01/26/2019 AT 09:50 AM EDT DISCLAIMER : THIS IS A VISIT SUMMARY EXTRACTED FROM THE [employer] CHART. IT IS NOT A COPY OF THE [employer] PROGRESS NOTE. MTDD
== END ==
LOC: M PAIN 14:00
PROVIDERS: ATTEND Anesthesiology
DX: M54.42 Lumbago with sciatica, left side (principal); M54.41 Lumbago with sciatica, right side; G89.29 Other chronic pain; M79.18 Myalgia, other site; Z87.09 Personal history of other diseases of the respiratory system; Z86.59 Personal history of other mental and behavioral disorders; E78.1 Pure hyperglyceridemia; F17.210 Nicotine dependence, cigarettes, uncomplicated; Z88.8 Allergy status to other drugs, medicaments and biological substances; Z79.51 Long term (current) use of inhaled steroids; Z79.899 Other long term (current) drug therapy

== ENCOUNTER → 2019-01-30 | Outpatient (CLI) | payer OTHER ==
[~2019-01-30] MED LIST changes: +PROHANCE 279.3MG/ML 15ML VIAL (A9576) As Ordered ONE; +PROHANCE 279.3MG/ML 5ML VIAL (A9576) As Ordered ONE
--- NOTE | 2019-01-30 16:56 | REP ---
MRI lumbar spine without and with IV contrast: History: Severe low back pain. Lumbar radiculopathy. Comparison MRI study January 05, 2017. Technique: Sagittal and axial T1 and T2-weighted scans are acquired in the usual fashion with and without fat saturation. Sequences include spin echo, turbo spin-echo, and STIR imaging sequences. Gadolinium enhancement dose is 20 mL of intravenous ProHance. Findings: There is some mild motion artifact. There is straightening of the normal lumbar lordosis as before. The tip of the conus medullaris is normal in position and appearance at L1. The L1-2 and L2-3 discs are unremarkable. At L3-4, there is minimal disc bulging unchanged. No other finding. At L4-L5, there is degenerative disc narrowing. There is a large left foraminal and left lateral focal disc protrusion at L4-5 compressing the adjacent nerve root and narrowing the neural foramen. This appears essentially unchanged. There is diffuse bulging in the remainder of the disc margin and the L4-5 canal is mildly narrowed overall. Midline AP dimension of the thecal sac at L4-5 is 7.4 mm. This is felt to be unchanged. No abnormal contrast enhancement is seen. At L5-S1, there is mild facet hypertrophy bilaterally. No other finding. Impression: Large left lateral and left foraminal disc protrusion at L4-5 essentially unchanged. Mild central canal stenosis at L4-5 unchanged. Electronically Signed by Pawan Ye MD 01/30/2019 05:13 P
== END ==
LOC: M RAD 13:35
PROVIDERS: ATTEND Anesthesiology
DX: M51.26 Other intervertebral disc displacement, lumbar region (principal); M48.061 Spinal stenosis, lumbar region without neurogenic claudication
CPT/HCPCS: 72158; A9576

== ENCOUNTER → 2019-02-26 | Outpatient (CLI) | payer OTHER ==
[~2019-02-26] MED LIST changes: +CYCL5TAB PO; -PROHANCE 279.3MG/ML 15ML VIAL (A9576) As Ordered ONE; -PROHANCE 279.3MG/ML 5ML VIAL (A9576) As Ordered ONE
--- NOTE | 2019-03-13 04:24 | ECWPNPC ---
PATIENT NAME: TAWNYA BELLO : 1985 GENDER: FEMALE VISIT DATE: 02/26/2019 DISCHARGE DATE: 02/26/19 0000 VISIT LOCKED DATE TIME: PHYSICIAN: SERENA WIGGINS MD RESOURCE: SERENA WIGGINS MD REASON FOR APPOINTMENT 1. DISCUSS MRI RESULTS HISTORY OF PRESENT ILLNESS HISTORY OF PRESENT ILLNESS: PAIN THE PATIENT DESCRIBES THE PAIN... 33 YEAR OLD FEMALE PATIENT WITH A HISTORY OF CHRONIC LOW BACK AND RIGHT LEG PAIN. THE PATIENT DESCRIBES THE PAIN ACHING, STABBING, AND CONTINUOUS WITH A PAIN SCORE OF 8-10/10 DEPENDING ON PHYSICAL ACTIVITY. THE PATIENT STATES HER PAIN IS MAINLY IN HER LOW BACK, WITH PAIN, NUMBNESS, AND TINGLING DOWN MAINLY HER RIGHT LEG. THE PATIENT SAYS SHE HAS BEEN SUFFERING FROM HER PAIN FOR MANY YEARS. PATIENT DENIES UNEXPLAINABLE WEIGHT LOSS, FEVER, CHILLS, NEW CHANGES ON HER URINARY OR BOWEL CONTROL. FALL RISK SCREENING: SCREENING :NO FALLS REPORTED IN THE LAST YEAR CURRENT MEDICATIONS TAKING NEXPLANON 68 MG IMPLANT SUBCUTANEOUS , NOTES: 07/2017, DUE FOR REMOVAL 07/2020 TAKING IBUPROFEN 600 MG TABLET 1 TABLET WITH FOOD ORALLY THREE TIMES A DAY NEEDED FOR PAIN TAKING INCRUSE ELLIPTA 62.5 MCG/INH AEROSOL POWDER BREATH ACTIVATED 1 PUFF INHALATION ONCE A DAY TAKING ALBUTEROL SULFATE HFA 108 (90 BASE) MCG/ACT AEROSOL SOLUTION 2 PUFFS INHALATION FOUR TIMES DAILY NEEDED TAKING LORATADINE 10 MG TABLET 1 TABLET ORALLY ONCE A DAY TAKING ADDERALL XR 25 MG CAPSULE EXTENDED RELEASE 24 HOUR 1 CAPSULE IN THE MORNING ORALLY ONCE DAILY (MDD #1). DX: F90.8 , CODE B NOT-TAKING ZITHROMAX Z-AB 250 MG TABLET 2 TABLETS ON THE FIRST DAY, THEN 1 TABLET DAILY FOR 4 DAYS ORALLY ONCE A DAY NOT-TAKING FLUTICASONE PROPIONATE 50 MCG/ACT SUSPENSION 1 SPRAY IN EACH NOSTRIL NASALLY ONCE A DAY NOT-TAKING CIPRODEX 0.3-0.1 % SUSPENSION 4 DROPS INTO THE LEFT EAR OTIC TWICE A DAY MEDICATION LIST REVIEWED AND RECONCILED WITH THE PATIENT PAST MEDICAL HISTORY ATTENTION DEFICIT DISORDER WITH HYPERACTIVITY HYPERGLYCERIDEMIA HISTORY OF URINARY INCONTINENCE POST BACK PAIN ASTHMA NICOTINE DEPENDENCE HERNIATED LUMBAR DISC ALLERGIES TAMIFLU: NAUSEA/VOMITING - ALLERGY SURGICAL HISTORY VENTRAL HERNIA REPAIR ([facility]) 2009 APPENDECTOMY 2016 FAMILY HISTORY FATHER: 50 YRS, MVA; WAS KNOWN TO HAVE COPD MOTHER: ALIVE SIBLINGS: HALF-BROTHERS (3) - 1 WITH AUTISM SPECTRUM DISORDER HALF-SISTER (1) - NO KNOWN MEDICAL PROBLEMS SON(S): ALIVE DAUGHTER(S): ALIVE 1 SON(S) , 1 DAUGHTER(S) - HEALTHY. SOCIAL HISTORY GENERAL: TOBACCO USE ARE YOU A:CURRENT SMOKER ARE YOU INTERESTED IN QUITTING?READY TO QUIT HAS CUT DOWN. HAS TRIED CHANTIX X 2 WITH UNDESIRED SIDE EFFECTS COUNSELED THE PATIENT ON TOBACCO USE, CESSATION [id number]/04/2019 HOW MANY CIGARETTES A DAY DO YOU SMOKE?5 OR LESS HOW SOON AFTER YOU WAKE UP DO YOU SMOKE YOUR FIRST CIGARETTE?31-60 MIN HOW OFTEN DO YOU SMOKE CIGARETTES?EVERY DAY PATIENT COUNSELED ON THE DANGERS OF TOBACCO USE AND URGED TO QUIT:02/26/2019 SMOKING CESSATION INFORMATION GIVEN12/22/2018 HIV / HEP-C SCREENING HIV TEST OFFERED TO PATIENT:NO HEP-C TEST OFFERED TO PATIENT:NO OTHERS AT HOME: 2 CHILD. HOUSING: RENTS APARTMENT. EDUCATION LEVEL OF EDUCATION:NOT FINISHED HIGH SCHOOL 10TH GRADE DIET: REGULAR, CUT OUT SWEETS. LANGUAGE LANGUAGES SPOKEN:[place] CITIZEN DOMESTIC VIOLENCE DO YOU FEEL SAFE IN YOUR ENVIRONMENT?YES BMI CARE GOAL FOLLOW-UP ABOVE NORMAL BMI FOLLOW-UPLIFESTYLE EDUCATION REGARDING DIET RECREATIONAL DRUG USE DRUG USE?YES HOW OFTEN AND HOW MUCH? 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 LEARNING BARRIERS / SPECIAL NEEDS CHANGE FROM LAST VISIT?NO BARRIERS TO LEARNING?NO HEARING IMPAIRED?NO VISION IMPAIRED?YES COGNITIVELY IMPAIRED?NO : CAN'T SEE FAR WAY, SAID SHE NEEDS TO GO TO AN EYE DOCTOR READINESS TO LEARN?YES LEARNING PREFERENCES?NO LEARNING CAPABILITIES PRESENT?YES EMOTIONAL BARRIERS?NO SPECIAL DEVICES?NO CARDER BLANKETS NEEDED?NO PAIN CLINIC PFS, CLERGY, PUBLIC HEALTH REFERRALS HAS THE PATIENT BEEN EDUCATED REGARDING HIS/HER PLAN OF CARE?YES HAS THE PATIENT BEEN EDUCATED REGARDING PAIN, THE RISK FOR PAIN, THE IMPORTANCE OF EFFECTIVE PAIN MANAGEMENT, AND THE PAIN ASSESSMENT PROCESS?YES LATEX QUESTIONNAIRE LATEX ALLERGY : HAVE YOU EVER DEVELOPED ANY TYPE OF REACTION AFTER HANDLING LATEX PRODUCTS SUCH RUBBER GLOVES, CONDOMS, DIAPHRAGMS, BALLOONS, SOCKS, OR UNDERWEAR?NO LATEX ALLERGY : HAVE YOU EVER DEVELOPED ANY TYPE OF REACTION DURING OR AFTER DENTAL APPOINTMENT, VAGINAL/RECTAL EXAMINATION, SURGICAL PROCEDURE, OR ANY OTHER EXPOSURE?NO LATEX RISK : HAVE YOU EVER HAD ANY DIFFICULTY BREATHING OR HIVES AFTER EATING OR HANDLING ANY FRUITS, OR VEGETABLES; SUCH KIWI, BANANAS, STONE FRUITS, OR CHESTNUTSNO LATEX RISK : DO YOU HAVE A PREVIOUS PERSONAL HISTORY OF MORE THAN NINE SURGERIES, SPINA BIFIDA, OR REPEATED CATHERIZATIONS? NO LATEX RISK : ARE YOU FREQUENTLY EXPOSED TO LATEX PRODUCTS IN YOUR OCCUPATION?NO DATE ASKED : 02/26/2019 CAFFEINE OCCASIONAL ONLY. ADVANCE DIRECTIVE ADVANCE DIRECTIVE DISCUSSED WITH PATIENT:YES 02/26/19 PT DOES NOT HAVE ANY ADVANCED DIRECTIVES AND SHE DECLINES INFORMATION ON HCP AT THIS TIME. AD SABIANISM [id number] NONE NO HINDU BELIEFS THAT WOULD IMPACT HEALTH CARE. ALCOHOL SCREENING POINTS: 1, INTERPRETATION: NEGATIVE. 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 SEXUAL HX HAD SEX IN THE LAST 12 MONTHS (VAGINAL, ORAL, OR ANAL)?YES WITHMEN ONLY USE PROTECTION?YES HOW OFTEN?ALL OF THE TIME HOSPITALIZATION/MAJOR DIAGNOSTIC PROCEDURE RELATED TO SURGERY AND CHILDBIRTH REVIEW OF SYSTEMS REVIEWED BY: PROVIDER: SERENA WIGGINS MD . CONSTITUTIONAL: ANY CHANGE IN YOUR MEDICAL CONDITION? NO . CHILLS NO . FEVER NO . INFECTION: DO YOU HAVE NEW INFECTIONS? NO . DO YOU HAVE HISTORY OF MRSA? NO . MUSCULOSKELETAL: ANY NEW PATTERNS OF PAIN OR NUMBNESS? YES, NUMBESS RIGHT LEG WORSE AT TIMES. IT IS BAD TODAY BECAUSE SHE DID HOUSEWORK TODAY. . GASTROENTEROLOGY: ANY NEW CHANGE IN BOWEL CONTROL? NO . GENITOURINARY: ANY NEW CHANGE IN BLADDER CONTROL? NO . IS THERE A CHANCE YOU COULD BE ? NO . HEMATOLOGY/LYMPH: DO YOU TAKE ANY BLOOD THINNERS? (FOR EXAMPLE- COUMADIN, PLAVIX, AGGRENOX, PLATEL, PRADAXA, OR XARELTO) NO . WHEN WAS YOUR LAST DOSE? DATE: TIME: . NEUROLOGY: HAVE YOU FALLEN IN THE PAST 12 MONTHS? NO . ANY NEW EXTREMITY NUMBNESS OR WEAKNESS? NO . CARDIOLOGY: DO YOU HAVE A PACEMAKER OR DEFIBRILLATOR? NO . RESPIRATORY: HAVE YOU BEEN SICK IN THE PAST WEEK? NO . FEVER NO . FLU LIKE SYMPTOMS? NO . COUGH NO . INTEGUMENTARY: DO YOU HAVE ANY RASHES OR OPEN SORES? NO . ALLERGIC/IMMUNO: ARE YOU ALLERGIC TO IV DYE? NO . ANY NEW ALLERGIES? NO . PSYCHIATRIC: DO YOU HAVE THOUGHTS OF HURTING YOURSELF OR SOMEONE ELSE? NO . ARE YOU ABUSED, NEGLECTED, OR IN AN UNSAFE ENVIRONMENT? NO . ENDOCRINOLOGY: ARE YOU DIABETIC? NO . OTHER: DO YOU NEED ANY PRESCRIPTIONS? NO . IF YES, PLEASE LIST: ____ . ANY NEW PROBLEMS WITH YOUR MEDICATIONS? NO . WHEN DID YOU LAST EAT? ____ . WHEN DID YOU LAST DRINK? ____ . WHAT DID YOU LAST DRINK? ____ . NAME OF PERSON DRIVING YOU HOME? ____ . DO YOU HAVE ANY OTHER QUESTIONS OR CONCERNS NO PT HAS NOT HAD ANY VACCINES IN THE PAST 30 DAYS . VITAL SIGNS WT 244 LBS, HT 65 IN, BMI 40.60 INDEX, BP 136/73 MM HG, HR 117 /MIN, RR 18 /MIN, TEMP 98.0 F, OXYGEN SAT % 95%, SAFE IN ENV? (Y/N) Y, NA INITIALS AW 1319, REVIEWED BY: TAMMY, LMP: 02/23/19. EXAMINATION GENERAL EXAMINATION: PATIENT IS ALERT O X 3 AND COOPERATIVE. TENDERNESS OVER THE PARASPINAL MUSCLE GROUP OF THE LOW BACK. RIGHT LEG IS WEAKER AT EXTENSION AND FLEXION. STRAIGHT LEG RAISE OF THE RIGHT LEG IS POSITIVE AT 35 DEGREES FOR RADICULOPATHY. MRI OF THE LUMBAR SPINE DONE ON 01/30/2019 SHOWS A BULGING DISC AT L3-L4, DISC PROTRUSION AT L4-L5, AND NO CHANGES OF LIPOMA. ASSESSMENTS INTERVERTEBRAL DISC DISORDERS WITH RADICULOPATHY, LUMBAR REGION - M51.16 (PRIMARY) TREATMENT INTERVERTEBRAL DISC DISORDERS WITH RADICULOPATHY, LUMBAR REGION CLINICAL NOTES: WE DISCUSSED SEVERAL ISSUES WITH MS. BELLO'S PAIN MANAGEMENT CASE. THE PATIENT'S LAST LUMBAR MRI DONE ON 01/30/2019 SHOWS A BENIGN LIPOMA IN THE LUMBAR SPINE AND ALSO A DISC PROTRUSION AT L4-L5. DUE TO THE LUMBAR RADICULOPATHY, I WOULD LIKE TO MOVE FORWARD WITH A LUMBAR EPIDURAL STEROID INJECTION AT THIS TIME. WE DISCUSSED THE BENEFITS, RISKS, AND ALTERNATIVES OF THE INJECTION AND THE PATIENT WOULD LIKE TO PROCEED. I AM LOOKING FOR LONG LASTING PAIN RELIEF FROM THIS INJECTION FOR THE PATIENT. THE PATIENT WILL FOLLOW UP IN SEVERAL WEEKS AFTER HER INJECTION. I WAS WITH THE PATIENT FOR MORE THAN 30 MINUTES, AND MORE THAN HALF OF THAT TIME WAS SPENT DISCUSSING PROCEDURE OPTIONS, ADDRESSING ANY QUESTIONS, AND DISCUSSING THE PATIENT'S CASE WITH DR. RIVAS, THE RADIOLOGIST WHO PERFORMED THE PATIENT'S LAST LUMBAR MRI IN JANUARY OF THIS YEAR. INSTRUCTIONS WERE GIVEN, QUESTIONS WERE ANSWERED, PATIENT REPORTS UNDERSTANDING AND AGREES WITH THE PLAN. I, GERARDO SCHWARTZ, DOCUMENTED THE ABOVE INFORMATION ACTING A SCRIBE FOR DR. WIGGINS. I HAVE REVIEWED THE ABOVE DOCUMENT, WRITTEN BY GERARDO SCHWARTZ SCRIBE AND I VERIFY THAT IT IS ACCURATE. . PREVENTIVE MEDICINE PAIN CLINIC TEACHING: PROCEDURE TEACHING LUMBAR EPIDURAL STEROID INJECTION PROCEDURE INFORMATION PRINTED AND REVIEWED WITH PATIENT 02/26/19 1513 NLJ. PROCEDURE CODES FA211 ESTABILISHED PATIENT [facility] FACILITY CHARGE G8427 CURRENT MEDS W/DOSAGES DOCUMENTED G8730 PAIN ASSESS POS TOOL F/U PLAN DOC DISPOSITION & COMMUNICATION FOLLOW UP REASON: LESI ELECTRONICALLY SIGNED BY SERENA WIGGINS MD, MD ON 03/12/2019 AT 05:32 PM EST DISCLAIMER : THIS IS A VISIT SUMMARY EXTRACTED FROM THE [employer] CHART. IT IS NOT A COPY OF THE [employer] PROGRESS NOTE. MTDD
== END ==
LOC: M PAIN 13:15
PROVIDERS: ATTEND Anesthesiology
DX: M51.16 Intervertebral disc disorders with radiculopathy, lumbar region (principal); G89.29 Other chronic pain; Z86.59 Personal history of other mental and behavioral disorders; J45.909 Unspecified asthma, uncomplicated; F17.210 Nicotine dependence, cigarettes, uncomplicated; Z88.8 Allergy status to other drugs, medicaments and biological substances; E66.01 Morbid (severe) obesity due to excess calories; Z68.41 Body mass index [BMI] 40.0-44.9, adult; Z79.51 Long term (current) use of inhaled steroids; Z79.899 Other long term (current) drug therapy

== ENCOUNTER 2019-03-02 14:36 | Emergency (ER) | payer OTHER ==
[~2019-03-02 14:36] MED LIST changes: -CYCL5TAB PO
[2019-03-02] MEDS ORDERED: NORCO, ANEXSIA 5/325MG TABLET (HYDROcodone/ACETAMINOPHEN) PO ONE (15:30)
[2019-03-02] MEDS ORDERED: CYCLOBENZAPRINE 10 MG TAB PO ONE (15:30)
--- NOTE | 2019-03-02 15:56 | REP ---
CT cervical thoracic spine: 03/02/2019. Indication: Cervical and thoracic spine trauma. Comparison: 05/26/2015. Technique: Axial unenhanced CT images of the cervical and thoracic spines were obtained with coronal and sagittal reconstructions provided. Findings: There is no acute fracture, subluxation or dislocation. No hemorrhage or additional acute post traumatic sequelae are detected within the spinal canal. There is straightening of the cervical lordosis. No erosive osseous abnormalities are noted. The visualized lungs are clear. Impression: No acute post traumatic osseous injuries of the cervical or thoracic spine. Electronically Signed by Will Beckford DO 03/02/2019 03:48 P
[2019-03-02] MEDS ORDERED: IBUP-1022 PO (17:04)
[2019-03-02] MEDS ORDERED: CYCL5TAB PO (17:04)
[2019-03-02 17:14] VITALS: BP 148/78
--- NOTE | 2019-03-02 17:18 | REP ---
Right shoulder three views: There is no fracture or dislocation. Mineralization and joint spaces are normal. There are no calcifications or foreign bodies. Impression: Negative right shoulder . Electronically Signed by Prasad Martinez MD 03/02/2019 05:09 P
== END 2019-03-02 17:20 | disposition home or self-care (01) ==
LOC: M ED 14:36 → EDBD 14:36 → M ED 17:20
DX: S16.1XXA Strain of muscle, fascia and tendon at neck level, initial encounter (principal); S29.012A Strain of muscle and tendon of back wall of thorax, initial encounter; V49.59XA Passenger injured in collision with other motor vehicles in traffic accident, initial encounter; Y92.410 Unspecified street and highway as the place of occurrence of the external cause; I10 Essential (primary) hypertension; J44.9 Chronic obstructive pulmonary disease, unspecified; F90.9 Attention-deficit hyperactivity disorder, unspecified type; Z79.899 Other long term (current) drug therapy; Z88.8 Allergy status to other drugs, medicaments and biological substances

== ENCOUNTER 2019-03-10 01:57 | Emergency (ER) | payer OTHER ==
[~2019-03-10] VITALS: Ht 165.1 cm; Wt 110.5 kg
[~2019-03-10 01:57] MED LIST changes: +CYCL5TAB PO
[2019-03-10 02:42] LABS: BASO # 0.1 10^3/uL (0.0-0.2); BASO % 0.9 % (0.0-1.0); EOS # 0.9 10^3/uL (0.0-0.5); EOS % 7.3 % (0.0-3.0); HEMATOCRIT 43.5 % (36.0-47.0); HEMOGLOBIN 13.8 g/dl (12.0-15.5); LYMPH # 3.9 10^3/uL (1.5-5.0); LYMPH % 30.3 % (24.0-44.0); MEAN CORPUSCULAR HGB CONC 31.7 g/dl (32.0-36.5); MEAN CORPUSCULAR VOLUME 88.2 fl (80.0-96.0); MONO # 0.9 10^3/uL (0.0-0.8); MONO % 6.6 % (0.0-5.0); NEUTROPHILS % 54.6 % (36.0-66.0); PLATELET COUNT, AUTOMATED 328 10^3/uL (150-450); RED BLOOD COUNT 4.93 10^6/uL (4.00-5.40); WHITE BLOOD COUNT 12.8 10^3/uL (4.0-10.0)
[2019-03-10 02:53] LABS: PROTHROMBIN TIME 12.9 SECONDS (11.8-14.0)
[2019-03-10 03:10] LABS: ALBUMIN 3.5 GM/DL (3.2-5.2); ALT/SGPT 21 U/L (12-78); BILIRUBIN,DIRECT < 0.1 MG/DL (0.0-0.2); BILIRUBIN,TOTAL 0.2 MG/DL (0.2-1.0); CK-MB VALUE MASS 1.9 NG/ML (<3.6); CPK CREATINE PHOSPHOKINASE 119 U/L (26-192); LIPASE 138 U/L (73-393); TOTAL PROTEIN 7.4 GM/DL (6.4-8.2); TROPONIN I < 0.02 NG/ML (< 0.10)
[2019-03-10] MEDS ORDERED: methylPREDNISolone INJ 125 MG/2 ML VIAL (J2930) IV ONE (03:30)
[2019-03-10] MEDS ORDERED: IPRATROPIUM 0.5MG/ALBUTEROL 2.5MG INH SOL UD 3ML (DUONEB)(J7620) NEB ONE (03:30)
[2019-03-10 04:11] LABS: INFLUENZA A AMPLIFICATION NEGATIVE (NEGATIVE); INFLUENZA B AMPLIFICATION NEGATIVE (NEGATIVE)
[2019-03-10 04:59] VITALS: BP 121/61
[2019-03-10] MEDS ORDERED: PRED20TA PO (05:04)
--- NOTE | 2019-03-10 08:15 | REP ---
Portable chest x-ray: Single view. History: Chest pain. Comparison chest x-ray: January 29, 2016. Findings: The lungs are well inflated and clear. The pleural angles are sharp. Heart is not enlarged. Monitoring electrodes are seen. Pulmonary vasculature is not increased. There is an old healed fracture of the left posterior 7th rib unchanged. Impression: No active disease. Electronically Signed by Pawan Ye MD 03/10/2019 08:06 A
--- NOTE | 2019-03-11 12:02 | ECGEPIP ---
[facility] - ED Test Date: 2019-03-10 Pat Name: TAWNYA BELLO Department: Room: - Gender: Female Int[facility] Ambulance Paramedic: : 1985 Requested By: MARLENE Hernandes Order Number: [id number] Reading MD: Elena Prescott Measurements Intervals [place] Rate: 97 P: 73 AK: 140 QRS: 75 QRSD: 90 T: 54 QT: 363 QTc: 463 Interpretive Statements SINUS RHYTHM DECREASED RATE/ST CHANGES 01/28/19 Electronically Signed on 03-11-2019 12:02:03 EST by Elena Prescott
== END 2019-03-10 05:27 | disposition home or self-care (01) ==
LOC: M ED 01:57
DX: J40 Bronchitis, not specified as acute or chronic (principal); J45.909 Unspecified asthma, uncomplicated; Z79.899 Other long term (current) drug therapy; Z88.8 Allergy status to other drugs, medicaments and biological substances; F17.210 Nicotine dependence, cigarettes, uncomplicated
CPT/HCPCS: 71045; 80047; 80076; 82550; 82553; 83690; 85025; 85610; 87502; 93005; 93041; 94760; 96374; 99284; J2930

== ENCOUNTER 2019-03-19 11:30 | Outpatient (RCR) | payer OTHER | END 2019-03-24 | LOC: M PT 11:30 | PROVIDERS: ATTEND Family Medicine | DX: Z47.89 Encounter for other orthopedic aftercare (principal) ==

== ENCOUNTER 2019-04-09 10:00 | Outpatient (RCR) | payer OTHER ==
[~2019-04-09 10:00] MED LIST changes: -ISOVUE-M 300 61% 15ML VIAL (Q9967) As Ordered ONE; -LIDOCAINE 1% SDV INJ 30 ML VIAL As Ordered ONE; -NORCO, ANEXSIA 5/325MG TABLET (HYDROcodone/ACETAMINOPHEN) As Ordered ONE; -diazePAM 5 MG TAB As Ordered ONE; -methylPREDNISolone SUSP 40 MG/ML (DEPO-medrol) VIAL (J1030) As Ordered ONE
== END 2019-04-24 ==
LOC: M PT 10:00
PROVIDERS: ATTEND Family Medicine
DX: S46.811D Strain of other muscles, fascia and tendons at shoulder and upper arm level, right arm, subsequent encounter (principal); V49.60XA Unspecified car occupant injured in collision with unspecified motor vehicles in traffic accident, initial encounter; Y92.410 Unspecified street and highway as the place of occurrence of the external cause

== ENCOUNTER → 2019-04-09 | Outpatient (CLI) | payer OTHER ==
[~2019-04-09] MED LIST changes: +ISOVUE-M 300 61% 15ML VIAL (Q9967) As Ordered ONE; +LIDOCAINE 1% SDV INJ 30 ML VIAL As Ordered ONE; +NORCO, ANEXSIA 5/325MG TABLET (HYDROcodone/ACETAMINOPHEN) As Ordered ONE; +diazePAM 5 MG TAB As Ordered ONE; +methylPREDNISolone SUSP 40 MG/ML (DEPO-medrol) VIAL (J1030) As Ordered ONE
--- NOTE | 2019-04-09 16:49 | REP ---
Partial lumbar spine series: Three views . History: Injection procedure for pain. Eight seconds of fluoroscopy time is reported. Findings: A sequence of three fluoroscopically obtained last image hold procedural spot radiographs of the lumbar spine document needle position and contrast injection associated with injection procedure. Electronically Signed by Pawan Ye MD 04/09/2019 04:41 P
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
== END ==
LOC: M PAIN 14:00
PROVIDERS: ATTEND Anesthesiology
DX: M51.16 Intervertebral disc disorders with radiculopathy, lumbar region (principal); Z86.59 Personal history of other mental and behavioral disorders; J45.909 Unspecified asthma, uncomplicated; F17.210 Nicotine dependence, cigarettes, uncomplicated; Z88.8 Allergy status to other drugs, medicaments and biological substances; Z79.51 Long term (current) use of inhaled steroids; Z79.899 Other long term (current) drug therapy
CPT/HCPCS: 62323; J1030; Q9967

== ENCOUNTER → 2019-04-28 | Outpatient (CLI) | payer OTHER ==
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
== END ==
LOC: M RAD 11:40
PROVIDERS: ATTEND Family Medicine
DX: M54.12 Radiculopathy, cervical region (principal); V89.9XXA Person injured in unspecified vehicle accident, initial encounter

== ENCOUNTER 2019-05-15 07:44 | Emergency (ER) | payer OTHER ==
[2019-05-15] MEDS ORDERED: IBUP-1022 (07:55)
[2019-05-15] MEDS: IPRATROPIUM 0.5MG/ALBUTEROL 2.5MG INH SOL UD 3ML (DUONEB)(J7620) NEB PRN ×2 (08:22→08:47)
[2019-05-15 09:01] LABS: INFLUENZA A AMPLIFICATION NEGATIVE (NEGATIVE); INFLUENZA B AMPLIFICATION NEGATIVE (NEGATIVE)
[2019-05-15] MEDS ORDERED: ZITHTAB2 PO (09:23)
[2019-05-15] MEDS ORDERED: PRED10TA2 PO (09:23)
--- NOTE | 2019-05-15 09:30 | REP ---
Chest x-ray: Two views. History: Dyspnea and cough . Comparison study: March 10, 2019 . Findings: The lungs are well inflated and free of infiltrate. The pleural angles are sharp. The heart size is normal. Pulmonary vasculature is not increased. No significant bony abnormality is seen. Monitoring electrodes are visible. Impression: Negative chest x-ray. Electronically Signed by Pawan Ye MD 05/15/2019 09:21 A
[2019-05-15 09:34] VITALS: BP 127/66
== END 2019-05-15 09:36 | disposition home or self-care (01) ==
LOC: EDBD 07:44 → M ED 07:44
DX: J44.1 Chronic obstructive pulmonary disease with (acute) exacerbation (principal); F90.9 Attention-deficit hyperactivity disorder, unspecified type; M51.9 Unspecified thoracic, thoracolumbar and lumbosacral intervertebral disc disorder; E66.9 Obesity, unspecified; Z79.899 Other long term (current) drug therapy; Z88.8 Allergy status to other drugs, medicaments and biological substances; F17.210 Nicotine dependence, cigarettes, uncomplicated

== ENCOUNTER 2019-05-23 12:22 | Emergency (ER) | payer OTHER ==
[~2019-05-23] VITALS: Ht 165.1 cm; Wt 109.0 kg
[~2019-05-23 12:22] MED LIST changes: +IBUP-1022; +PRED10TA2 PO; +ZITHTAB2 PO
[2019-05-23] MEDS ORDERED: NICO1LOZ11 PO (12:34)
[2019-05-23] MEDS ORDERED: LIDOCAINE W/EPINEPHRINE 1% 20ML VIAL SC ONE (14:15)
[2019-05-23 14:20] LABS: BASO % 0.3 % (0.0-1.0); EOS # 0.2 10^3/uL (0.0-0.5); EOS % 1.1 % (0.0-3.0); HEMATOCRIT 41.4 % (36.0-47.0); HEMOGLOBIN 13.9 g/dl (12.0-15.5); LYMPH # 2.8 10^3/uL (1.5-5.0); LYMPH % 19.3 % (24.0-44.0); MEAN CORPUSCULAR HEMOGLOBIN 28.4 pg (27.0-33.0); MEAN CORPUSCULAR HGB CONC 33.6 g/dl (32.0-36.5); MEAN CORPUSCULAR VOLUME 84.7 fl (80.0-96.0); MONO # 0.9 10^3/uL (0.0-0.8); MONO % 6.1 % (0.0-5.0); NEUTROPHILS # 10.5 10^3/uL (1.5-8.5); NEUTROPHILS % 72.4 % (36.0-66.0); PLATELET COUNT, AUTOMATED 338 10^3/uL (150-450); RED BLOOD COUNT 4.89 10^6/uL (4.00-5.40); WHITE BLOOD COUNT 14.5 10^3/uL (4.0-10.0)
[2019-05-23] MEDS ORDERED: AUGM875T28 PO (14:32)
[2019-05-23 14:40] VITALS: BP 148/78
[2019-05-23 14:57] LABS: ERYTHROCYTE SEDIMENTATION RATE 30 mm/hr (0-20)
== END 2019-05-23 14:42 | disposition home or self-care (01) ==
LOC: M ED 12:22
DX: L05.01 Pilonidal cyst with abscess (principal); J45.909 Unspecified asthma, uncomplicated; Z79.899 Other long term (current) drug therapy; Z88.8 Allergy status to other drugs, medicaments and biological substances; F17.210 Nicotine dependence, cigarettes, uncomplicated

== ENCOUNTER 2019-05-25 08:32 | Emergency (ER) | payer OTHER ==
[~2019-05-25] VITALS: Ht 165.1 cm; Wt 110.9 kg
[~2019-05-25 08:32] MED LIST changes: +AUGM875T28 PO; +NICO1LOZ11 PO
[2019-05-25 08:37] VITALS: BP 166/96
[2019-05-25] MEDS ORDERED: NORCO, ANEXSIA 5/325MG TABLET (HYDROcodone/ACETAMINOPHEN) PO ONE (08:45)
--- NOTE | 2019-05-25 09:14 | REP ---
RIGHT ANKLE COMPLETE: 05/25/2019. Clinical history: Twisting injury, trauma. Lateral ankle pain. Findings: Four views are provided. Lateral view shows small plantar calcaneal spur. Talus and calcaneus without fracture. Subtalar joints intact. The mortise joint symmetric and preserved. No talar dome osteochondral defect. The distal tibia and fibula without fracture or focal lesion. Soft tissue swelling over the anterolateral aspect of the ankle is noted. Visualized tarsal bones and proximal metatarsals are intact. Impression: 1. Negative right ankle series for fracture, avulsion, disruption of the mortise joint or other acute bony finding. 2. Soft tissue swelling anterolateral ankle. Electronically Signed by Juan Wray MD 05/25/2019 09:06 A
== END 2019-05-25 09:32 | disposition home or self-care (01) ==
LOC: M ED 08:32
DX: S93.401A Sprain of unspecified ligament of right ankle, initial encounter (principal); W10.8XXA Fall (on) (from) other stairs and steps, initial encounter; Y92.018 Other place in single-family (private) house as the place of occurrence of the external cause; J44.9 Chronic obstructive pulmonary disease, unspecified; J45.909 Unspecified asthma, uncomplicated; K21.9 Gastro-esophageal reflux disease without esophagitis; F33.9 Major depressive disorder, recurrent, unspecified; F41.9 Anxiety disorder, unspecified; F90.9 Attention-deficit hyperactivity disorder, unspecified type; Z79.899 Other long term (current) drug therapy; Z88.8 Allergy status to other drugs, medicaments and biological substances; F17.210 Nicotine dependence, cigarettes, uncomplicated

== ENCOUNTER → 2019-10-30 | Outpatient (CLI) | payer OTHER ==
[~2019-10-30] MED LIST changes: +ADDE20CA3 PO; +MELO15TA28 PO
== END ==
LOC: M LABSMTC 09:27
PROVIDERS: ATTEND Anesthesiology
DX: Z01.818 Encounter for other preprocedural examination (principal); Z11.59 Encounter for screening for other viral diseases
CPT/HCPCS: C9803; U0003

== ENCOUNTER 2019-11-02 07:12 | Day surgery (SDC) | payer OTHER ==
[~2019-11-02] VITALS: Ht 162.6 cm; Wt 115.2 kg
[~2019-11-02 07:12] MED LIST changes: +LIDOCAINE 1% MDV 20ML VIAL SQ PRN; +LIDOCAINE 2% 100MG/5ML SDV (FOR ANES.) As Ordered ONE; +LR 1,000 ML IV ONE; +MIDAZOLAM INJ 2MG/2ML VIAL (J2250 PER 1MG) As Ordered ONE; +ONDANSETRON 4MG/2ML VIAL As Ordered ONE; +PHENYLephrine HCL 500 MCG/5 ML (100MCG/ML) SYRINGE (J2370) As Ordered ONE; +ROCURONIUM BROMIDE 50 MG/5 ML VIAL As Ordered ONE; +SUGAMMADEX SODIUM 500 MG/5 ML VIAL (BRIDION) As Ordered ONE; +ceFAZolin SOD 2 GM in IV 1 EA IV ONE; +dexameTHASONE 4 MG/ML 1ML VIAL (J1100 PER 1MG) As Ordered ONE; +ePHEDrine SULFATE 25 MG/5 ML(5MG/ML) SYRINGE As Ordered ONE; +fentaNYL 250 MCG/5 ML INJECTION (J3010) As Ordered ONE; +propofoL 200 MG/20 ML VIAL As Ordered ONE
[2019-11-02] MEDS ORDERED: LIDOCAINE 1% SDV 30ML VIAL As Ordered ONE (07:16)
[2019-11-02] MEDS ORDERED: BUPIVACAINE HCL 0.25% 30ML VIAL As Ordered ONE (07:16)
[2019-11-02] MEDS ORDERED: propofoL 200 MG/20 ML VIAL As Ordered ONE ×5 (07:48→09:22)
[2019-11-02] MEDS ORDERED: ALBUTEROL SULFATE 2.5 MG/0.5 ML INH NEB SOLN INH ONE (08:00)
[2019-11-02] MEDS ORDERED: ACETAMINOPHEN 1000MG 100ML IV BTL (OFIRMEV) (J0131 PER 10MG) As Ordered ONE (08:57)
[2019-11-02] MEDS ORDERED: ESMOLOL INJ 100MG/10ML VIAL As Ordered ONE (09:20)
[2019-11-02] MEDS ORDERED: GLYCOPYRROLATE INJ 0.2 MG/ML 2 ML VIAL As Ordered ONE (09:50)
[2019-11-02] MEDS ORDERED: LIDOCAINE 2% 100MG/5ML SDV (FOR ANES.) As Ordered ONE (09:50)
[2019-11-02] MEDS ORDERED: KETOROLAC 30 MG/ML 1ML VIAL IV PRN (10:15)
[2019-11-02] MEDS ORDERED: NORCO, ANEXSIA 5/325MG TABLET (HYDROcodone/ACETAMINOPHEN) PO PRN (10:15)
[2019-11-02] MEDS ORDERED: ONDANSETRON 4MG/2ML VIAL IV PRN (10:30)
[2019-11-02] MEDS ORDERED: LR 1,000 ML IV SCH (10:30)
[2019-11-02] MEDS ORDERED: oxyCODONE 5MG TAB PO PRN (10:30)
[2019-11-02 11:10] VITALS: BP 146/85
== END 2019-11-02 11:38 | disposition home or self-care (01) ==
LOC: M SDC 07:12
PROVIDERS: ATTEND Surgery
DX: L05.91 Pilonidal cyst without abscess (principal); D17.1 Benign lipomatous neoplasm of skin and subcutaneous tissue of trunk; F17.218 Nicotine dependence, cigarettes, with other nicotine-induced disorders; K21.9 Gastro-esophageal reflux disease without esophagitis; F90.9 Attention-deficit hyperactivity disorder, unspecified type; F32.9 Major depressive disorder, single episode, unspecified; F41.9 Anxiety disorder, unspecified; J44.9 Chronic obstructive pulmonary disease, unspecified; G43.909 Migraine, unspecified, not intractable, without status migrainosus; Z79.899 Other long term (current) drug therapy; Z88.8 Allergy status to other drugs, medicaments and biological substances
CPT/HCPCS: 11406; 11770; 81025; 87486; 87581; 87633; 87798; 88304; J0131; J0690; J1100; J1885; J2250; J2370; J2405; J3010

== ENCOUNTER → 2020-03-22 | Outpatient (CLI) | payer OTHER ==
[~2020-03-22] MED LIST changes: -LIDOCAINE 1% MDV 20ML VIAL SQ PRN; -LIDOCAINE 2% 100MG/5ML SDV (FOR ANES.) As Ordered ONE; -LR 1,000 ML IV ONE; -MIDAZOLAM INJ 2MG/2ML VIAL (J2250 PER 1MG) As Ordered ONE; -ONDANSETRON 4MG/2ML VIAL As Ordered ONE; -PHENYLephrine HCL 500 MCG/5 ML (100MCG/ML) SYRINGE (J2370) As Ordered ONE; -ROCURONIUM BROMIDE 50 MG/5 ML VIAL As Ordered ONE; -SUGAMMADEX SODIUM 500 MG/5 ML VIAL (BRIDION) As Ordered ONE; -ceFAZolin SOD 2 GM in IV 1 EA IV ONE; -dexameTHASONE 4 MG/ML 1ML VIAL (J1100 PER 1MG) As Ordered ONE; -ePHEDrine SULFATE 25 MG/5 ML(5MG/ML) SYRINGE As Ordered ONE; -fentaNYL 250 MCG/5 ML INJECTION (J3010) As Ordered ONE; -propofoL 200 MG/20 ML VIAL As Ordered ONE
== END ==
LOC: M LABSMTC 08:05
PROVIDERS: ATTEND Orthopaedic Surgery
DX: Z01.812 Encounter for preprocedural laboratory examination (principal); Z20.828 Contact with and (suspected) exposure to other viral communicable diseases

== ENCOUNTER 2020-04-23 10:03 | Outpatient (RCR) | payer OTHER | END 2020-04-24 | LOC: M PT 10:03 | PROVIDERS: ATTEND Orthopaedic Surgery | DX: Z47.89 Encounter for other orthopedic aftercare (principal); Z98.890 Other specified postprocedural states ==

== ENCOUNTER 2020-05-23 13:45 | Outpatient (RCR) | payer OTHER | END 2020-05-25 | LOC: M PT 13:45 | PROVIDERS: ATTEND Orthopaedic Surgery | DX: Z47.89 Encounter for other orthopedic aftercare (principal); Z98.890 Other specified postprocedural states ==

== ENCOUNTER 2020-06-08 12:22 | Emergency (ER) | payer OTHER ==
[~2020-06-08] VITALS: Ht 162.6 cm; Wt 115.0 kg
[~2020-06-08 12:22] MED LIST changes: +CIPR7.5D5 AS; -CIPRODEX AS
--- OUTSIDE RECORDS SUMMARY | 2020-06-08 12:29 | CCD ---
Author Author [facility] Organization [facility] Address Unknown Phone Unavailable Care Team Providers Care Music Producer Name Role Phone Aman Grant Unavailable PROBLEMS Type Condition ICD9-CM Code [id number] Code Onset Dates Condition S tatus SNOMED Code Notes Problem Body mass index (BMI) of 30.0 to 39.9 E66.9 Ac tive 669174378 Problem Other obesity due to excess calories E66.09 Act martha 562147328 Problem Attention-deficit hyperactivity disorder, combined type F90.2 Active 43812321 Problem Asthma exacerbation J45.901 Active 869470364 Problem Pure hyperglyceridemia E78.1 Active 315165093 Problem Chronic obstructive pulmonary disease, unspecified COPD ty pe J44.9 Active 98240584 Problem Cigarette nicotine dependence, uncomplicated F17.2 10 Active 06416956 Problem Moderate persistent asthma, uncomplicated J45.40 Active 930192012 Problem Sleep apnea, unspecified type G47.30 Active 73 349765 Problem Pure hypertriglyceridemia E78.1 Active 719305 009 Problem Lumbago with sciatica, right side M54.41 Active 255277005 Problem Allergic rhinitis due to animal hair and dander J3 0.81 Active 657028105592275 Problem Dysthymia F34.1 Active 38772768 Problem Other chronic pain G89.29 Active 38648444 Problem Daytime somnolence R40.0 Active 835490416724 Problem Insomnia, unspecified type G47.00 Active 52890 2000 Problem Oxygen desaturation during sleep G47.34 Active 918012471 Problem COPD exacerbation J44.1 Active 700010954 Problem Mild intermittent asthma, uncomplicated J45.20 Active 975744617 Problem Tobacco dependence F17.200 Active 04622672 Problem Generalized anxiety disorder F41.1 Active 218 92529 Problem Intervertebral disc disorders with radiculopathy , lumbar region M51.16 Active 737576262105114 Problem Herniated intervertebral disc of lumbar spine M51. 26 Active 630463443504945 Problem Obstructive sleep apnea syndrome G47.33 Active 21419347 Problem Gastroesophageal reflux disease, esophagitis pre sence not specified K21.9 Active 034375693 Problem L4-L5 disc bulge M51.26 Active 640827361 Problem Myalgia, other site M79.18 Active 71128203 Problem Intervertebral disc disorder with radiculopathy of lumbar region M51.16 Active 243874197278645 Problem History of asthma Z87.09 Active 952062529 Problem Lumbago with sciatica, left side M54.42 Active 063100353 ALLERGIES Allergen (clinical drug ingredient) Drug/Non Drug Allergy do cumented on EMR Reaction Allergy Type Onset Date Status oseltamivir Tamiflu(NDC Code:[address]-07) Nausea/Vomiting Drug Owen rgy Active nicotine Nicotine Polacrilex(NDC Code:[address]-51) thro at burning Drug Allergy Active ENCOUNTERS from 1985 to 2020-04-02 Encounter Location Date Provider Diagnosis [address] [address] Mar, Aman Grant Attention-deficit hyperactivity disorder , combined type F90.2 IMMUNIZATIONS Vaccine Route Administration Date Status Pneumococcal Adult 0.5mL (Pneumovax 23) IM Intramuscular Mar 20, 2014 Administered TDAP Unknown Mar 26, 2009 Administered TD Adult 0.5mL (Tetanus) Unknown Mar 26, 2009 Pending Influenza (6mo & up) Fluzone IM Intramuscular Mar 29, 2018 Ad ministered Influenza (6mo & up) Fluzone IM Intramuscular Jan 28, 2017 Ad ministered Influenza (6mo & up) Fluzone Unknown Jan 18, 2016 Adm inistered Influenza (6mo & up) Fluzone IM Intramuscular Jan 18, 2014 Ad ministered Influenza (6mo & up) Fluzone Unknown Jan 23, 2013 Adm inistered Influenza (6mo & up) Fluzone IM Intramuscular Mar 29, 2012 Ad ministered SOCIAL HISTORY Tobacco Use: Social History Observation Description Date Details (start date - stop date) Current Smoker Sex Assigned At : Social History Observation Description Sex Assigned At Unknown Education: Question Answer Notes Level of Education: Not finished High School 10th grade Audit Question Answer Notes Total Score: 0 Interpretation: Alcohol Education Language: Question Answer Notes Languages spoken: Albanian Yarsanism: Question Answer Notes Yarsanism 33 None No sabianist beliefs that would impact health care. Sexual Hx: Question Answer Notes Had sex in the last 12 months (vaginal, oral, or anal)? Yes with Men only Use protection? Yes How often? All of the time Drug and Alcohol Question Answer Notes Total Score: 0 Interpretation: No problems reported BMI Care Goal Follow-Up Question Answer Notes Above Normal BMI Follow-Up Lifestyle education regarding t Tobacco Use: Question Answer Notes Are you a: current smoker Smoking Cessation Information Given 08/10/2019 Patient counseled on the dangers of tobacco use and urged to quit: 08/10/2019 How many cigarettes a day do you smoke? 6-10 Are you interested in quitting? Ready to quit Has cut down. Has tried Chantix x 2 with undesired side effects Counseled the patient on tobacco use, cessation provided REASON FOR REFERRAL No Information VITAL SIGNS No information MEDICATIONS Medication SIG (Take, Route, Frequency, Duration) Notes Start Da te End Date Status Adderall XR 25 MG 1 capsule in the morning Ora lly once daily (MDD #1). DX: F90.8 , code B for 28 day(s) Mar, Active Albuterol Sulfate HFA 108 (90 Base) MCG/ACT 2 puffs In halation four times daily as needed for 30 days Active Nexplanon 68 MG Subcutaneous Active Loratadine 10 MG 1 tablet Orally Once a day for 90 days May, Active Incruse Ellipta 62.5 MCG/INH 1 puff Inhalation Once a day for 30 days May, Active PROCEDURES No Information RESULTS No Results REASON FOR VISIT Adderall XR 25 MG Capsule MEDICAL (GENERAL) HISTORY Type Description Date Medical History asthma, moderate persistent Medical History attention deficit disorder with hyperact ivity Medical History nicotine dependence Medical History hyperglyceridemia Medical History herniated disk, lumbar spine Medical History history of urinary incontinence post pre gnancy Surgical History ventral hernia repair ([facility]) 2 010 Surgical History appendectomy 2016 Surgical History Lipoma removed on back 11/2019 Hospitalization History related to surgery and childbirth Goals Section No Information Health Concerns No Information MEDICAL EQUIPMENT No Information MENTAL STATUS No Information FUNCTIONAL STATUS No Information ASSESSMENTS Encounter Date Diagnosis Assessment Notes Treatment Notes Treatm ent Clinical Notes Mar, Attention-deficit hyperactiv ity disorder, combined type (ICD-10 - F90.2) PLAN OF TREATMENT Medication Medication Name Sig Start Date Stop Date Adderall XR 25 MG 1 capsule in the morning Ora lly once daily (MDD #1). DX: F90.8 , code B for 28 day(s) Mar, Loratadine 10 MG 1 tablet Orally Once a day for 90 days May, Next Appt Details Provider Name:Aman Grant, 12-1 8 02:00:00 PM, [address] [place], [address], Insurance Providers Payer Name Payer Address Payer Phone Insured Name Patient Relati onship to Insured Coverage Start Date Coverage End Date [facility] [facility] [address] [facility] [phone] TAWNYA BELLO self
--- OUTSIDE RECORDS SUMMARY | 2020-06-08 12:29 | CCD ---
Author Author [facility] Organization [facility] Address Unknown Phone Unavailable Care Team Providers Care Trademark Attorney Name Role Phone Aman Grant Unavailable PROBLEMS Type Condition ICD9-CM Code OOI85-NS Code Onset Dates Condition S tatus SNOMED Code Notes Problem Body mass index (BMI) of 30.0 to 39.9 E66.9 Ac tive 877436082 Problem Other obesity due to excess calories E66.09 Act martha 344304239 Problem Attention-deficit hyperactivity disorder, combined type F90.2 Active 71221368 Problem Asthma exacerbation J45.901 Active 199782554 Problem Pure hyperglyceridemia E78.1 Active 099962388 Problem Chronic obstructive pulmonary disease, unspecified COPD ty pe J44.9 Active 52954284 Problem Cigarette nicotine dependence, uncomplicated F17.2 10 Active 93194821 Problem Moderate persistent asthma, uncomplicated J45.40 Active 313133429 Problem Sleep apnea, unspecified type G47.30 Active 73 994999 Problem Pure hypertriglyceridemia E78.1 Active 406824 009 Problem Lumbago with sciatica, right side M54.41 Active 580403199 Problem Allergic rhinitis due to animal hair and dander J3 0.81 Active 036859972116726 Problem Dysthymia F34.1 Active 85222928 Problem Other chronic pain G89.29 Active 75251235 Problem Daytime somnolence R40.0 Active 678425288765 Problem Insomnia, unspecified type G47.00 Active 67531 2000 Problem Oxygen desaturation during sleep G47.34 Active 713814278 Problem COPD exacerbation J44.1 Active 915387494 Problem Mild intermittent asthma, uncomplicated J45.20 Active 739381461 Problem Tobacco dependence F17.200 Active 11381587 Problem Generalized anxiety disorder F41.1 Active 218 99080 Problem Intervertebral disc disorders with radiculopathy , lumbar region M51.16 Active 228091936437107 Problem Herniated intervertebral disc of lumbar spine M51. 26 Active 303960586831045 Problem Obstructive sleep apnea syndrome G47.33 Active 27898021 Problem Gastroesophageal reflux disease, esophagitis pre sence not specified K21.9 Active 623490250 Problem L4-L5 disc bulge M51.26 Active 037084960 Problem Myalgia, other site M79.18 Active 11270088 Problem Intervertebral disc disorder with radiculopathy of lumbar region M51.16 Active 391603508610776 Problem History of asthma Z87.09 Active 473362038 Problem Lumbago with sciatica, left side M54.42 Active 113532881 ALLERGIES Allergen (clinical drug ingredient) Drug/Non Drug Allergy do cumented on EMR Reaction Allergy Type Onset Date Status oseltamivir Tamiflu(NDC Code:[address]-24) Nausea/Vomiting Drug Owen rgy Active nicotine Nicotine Polacrilex(NDC Code:[address]-40) thro at burning Drug Allergy Active ENCOUNTERS from 1985 to 2020-03-26 Encounter Location Date Provider Diagnosis [address] [address] Feb, Aman Grant IMMUNIZATIONS Vaccine Route Administration Date Status Pneumococcal [...] Education Language: Question Answer Notes Languages spoken: St [place] Oriental Orthodox: Question Answer Notes Oriental Orthodox 33 None No voodoo beliefs that would impact health care. Sexual [...] Notes Start Da te End Date Status Nexplanon 68 MG Subcutaneous Active Albuterol Sulfate HFA 108 (90 Base) MCG/ACT 2 puffs In halation four times daily as needed for 30 days Active Adderall XR 25 MG 1 capsule in the morning Ora lly once daily (MDD #1). DX: F90.8 , code B for 28 day(s) Feb, Active Loratadine 10 MG 1 tablet Orally Once a day for 90 days May, Active Incruse Ellipta 62.5 MCG/INH 1 puff Inhalation Once a day for 30 days May, Active PROCEDURES No Information RESULTS No Results REASON FOR VISIT clearance and EKG- SURGERY TOMORROW MEDICAL (GENERAL) HISTORY Type Description Date Medical History asthma, moderate persistent Medical History attention deficit disorder with hyperact ivity Medical History nicotine dependence Medical History hyperglyceridemia Medical History herniated disk, lumbar spine Medical History history of urinary incontinence post pre gnancy Surgical History ventral hernia repair ([facility]) 2 010 Surgical History appendectomy 2016 Surgical History Lipoma removed on back 11/2019 Hospitalization History related to surgery and childbirth Goals Section No Information Health Concerns No Information MEDICAL EQUIPMENT No Information MENTAL STATUS No Information FUNCTIONAL STATUS No Information ASSESSMENTS No Information PLAN OF TREATMENT Medication Medication Name Sig Start Date Stop Date Adderall XR 25 MG 1 capsule in the morning Ora lly once daily (MDD #1). DX: F90.8 , code B for 28 day(s) Feb, Loratadine 10 MG 1 tablet Orally Once a day for 90 days May, Next Appt Details Provider Name:Aman Grant, 12-1 8 02:00:00 PM, [address] [place] [address], [phone], Insurance Providers Payer Name Payer Address Payer Phone Insured Name Patient Relati onship to Insured Coverage Start Date Coverage End Date [facility] COMM[facility]AN [facility] [address] [facility] [phone] TAWNYA BELLO self
--- OUTSIDE RECORDS SUMMARY | 2020-06-08 12:29 | CCD ---
Author Author [facility] Organization [facility] Address Unknown Phone Unavailable Care Team Providers Care Brigadier Name Role Phone Aman Grant Unavailable PROBLEMS Type Condition ICD9-CM Code UEB19-FL Code Onset Dates Condition S tatus SNOMED Code Notes Problem Body mass index (BMI) of 30.0 to 39.9 E66.9 Ac tive 089757074 Problem Other obesity due to excess calories E66.09 Act martha 670648098 Problem Attention-deficit hyperactivity disorder, combined type F90.2 Active 16729033 Problem Asthma exacerbation J45.901 Active 674647216 Problem Pure hyperglyceridemia E78.1 Active 957299284 Problem Chronic obstructive pulmonary disease, unspecified COPD ty pe J44.9 Active 07164127 Problem Cigarette nicotine dependence, uncomplicated F17.2 10 Active 57537610 Problem Moderate persistent asthma, uncomplicated J45.40 Active 583276616 Problem Sleep apnea, unspecified type G47.30 Active 73 970737 Problem Pure hypertriglyceridemia E78.1 Active 158494 009 Problem Lumbago with sciatica, right side M54.41 Active 871509064 Problem Allergic rhinitis due to animal hair and dander J3 0.81 Active 120244762972701 Problem Dysthymia F34.1 Active 58945242 Problem Other chronic pain G89.29 Active 05147784 Problem Daytime somnolence R40.0 Active 351067907764 Problem Insomnia, unspecified type G47.00 Active 10999 2000 Problem Oxygen desaturation during sleep G47.34 Active 173512090 Problem COPD exacerbation J44.1 Active 798800203 Problem Mild intermittent asthma, uncomplicated J45.20 Active 886024411 Problem Tobacco dependence F17.200 Active 69165473 Problem Generalized anxiety disorder F41.1 Active 218 25653 Problem Intervertebral disc disorders with radiculopathy , lumbar region M51.16 Active 966122839364398 Problem Herniated intervertebral disc of lumbar spine M51. 26 Active 795614544814172 Problem Obstructive sleep apnea syndrome G47.33 Active 30819289 Problem Gastroesophageal reflux disease, esophagitis pre sence not specified K21.9 Active 593421954 Problem L4-L5 disc bulge M51.26 Active 954554532 Problem Myalgia, other site M79.18 Active 86394453 Problem Intervertebral disc disorder with radiculopathy of lumbar region M51.16 Active 982091645120481 Problem History of asthma Z87.09 Active 885727791 Problem Lumbago with sciatica, left side M54.42 Active 928530601 ALLERGIES Allergen (clinical drug ingredient) Drug/Non Drug Allergy do cumented on EMR Reaction Allergy Type Onset Date Status oseltamivir Tamiflu(NDC Code:[address]-80) Nausea/Vomiting Drug Owen rgy Active nicotine Nicotine Polacrilex(NDC Code:[address]-17) thro at burning Drug Allergy Active ENCOUNTERS from 1985 to 2020-04-23 Encounter Location Date Provider Diagnosis [address] [address] Mar, Aman Grant IMMUNIZATIONS Vaccine Route Administration Date [...] Education Language: Question Answer Notes Languages spoken: Polish Episcopalian: Question Answer Notes Episcopalian 33 None No lutheran beliefs that would impact health care. Sexual [...] Information RESULTS No Results REASON FOR VISIT no show MEDICAL (GENERAL) HISTORY Type Description Date Medical History asthma, moderate persistent Medical History attention deficit disorder with hyperact ivity Medical History nicotine dependence Medical History hyperglyceridemia Medical History herniated disk, lumbar spine Medical History history of urinary incontinence post pre gnancy Surgical History ventral hernia repair ([facility]) 2 010 Surgical History appendectomy 2016 [...] May, Next Appt Details Provider Name:Aman Grant, 2020-02-0 4 02:30:00 PM, [address] [place] [address], [phone], Insurance Providers Payer Name Payer Address Payer Phone Insured Name Patient Relati onship to Insured Coverage Start Date Coverage End Date [facility] [address] [facility] [phone] TAWNYA BELLO self
--- OUTSIDE RECORDS SUMMARY | 2020-06-08 12:29 | CCD ---
Author Author [facility] Organization [facility] Address Unknown Phone Unavailable Care Team Providers Care Assembler Tubing Name Role Phone Aman Grant Unavailable PROBLEMS Type Condition ICD9-CM Code IUL40-IN Code Onset Dates Condition S tatus SNOMED Code Notes Problem Body mass index (BMI) of 30.0 to 39.9 E66.9 Ac tive 790225442 Problem Other obesity due to excess calories E66.09 Act martha 196871756 Problem Attention-deficit hyperactivity disorder, combined type F90.2 Active 70534921 Problem Asthma exacerbation J45.901 Active 416820756 Problem Pure hyperglyceridemia E78.1 Active 132677659 Problem Chronic obstructive pulmonary disease, unspecified COPD ty pe J44.9 Active 81896245 Problem Cigarette nicotine dependence, uncomplicated F17.2 10 Active 93450119 Problem Moderate persistent asthma, uncomplicated J45.40 Active 849258424 Problem Sleep apnea, unspecified type G47.30 Active 73 387957 Problem Pure hypertriglyceridemia E78.1 Active 959742 009 Problem Lumbago with sciatica, right side M54.41 Active 104479182 Problem Allergic rhinitis due to animal hair and dander J3 0.81 Active 770174974389429 Problem Dysthymia F34.1 Active 39140677 Problem Other chronic pain G89.29 Active 83590622 Problem Daytime somnolence R40.0 Active 625799761203 Problem Insomnia, unspecified type G47.00 Active 24040 2000 Problem Oxygen desaturation during sleep G47.34 Active 050979264 Problem COPD exacerbation J44.1 Active 406932411 Problem Mild intermittent asthma, uncomplicated J45.20 Active 147581531 Problem Tobacco dependence F17.200 Active 56103760 Problem Generalized anxiety disorder F41.1 Active 218 15821 Problem Intervertebral disc disorders with radiculopathy , lumbar region M51.16 Active 643750666179762 Problem Herniated intervertebral disc of lumbar spine M51. 26 Active 075164554356021 Problem Obstructive sleep apnea syndrome G47.33 Active 00965230 Problem Gastroesophageal reflux disease, esophagitis pre sence not specified K21.9 Active 280045213 Problem L4-L5 disc bulge M51.26 Active 890936418 Problem Myalgia, other site M79.18 Active 35343748 Problem Intervertebral disc disorder with radiculopathy of lumbar region M51.16 Active 964525423653687 Problem History of asthma Z87.09 Active 665616554 Problem Lumbago with sciatica, left side M54.42 Active 988538162 ALLERGIES Allergen (clinical drug ingredient) Drug/Non Drug Allergy do cumented on EMR Reaction Allergy Type Onset Date Status oseltamivir Tamiflu(NDC Code:[address]-11) Nausea/Vomiting Drug Owen rgy Active nicotine Nicotine Polacrilex(NDC Code:[address]-04) thro at burning Drug Allergy Active ENCOUNTERS from 1985 to 2020-03-31 Encounter Location Date Provider Diagnosis [address] [address] Mar, Aman Grant Tachycardia R00.0 IMMUNIZATIONS Vaccine Route Administration Date Status Influenza (6mo & up) Fluzone IM Intramuscular Mar 29, 2018 Ad ministered Pneumococcal Adult 0.5mL (Pneumovax 23) IM Intramuscular [...] Education Language: Question Answer Notes Languages spoken: Croatian Pentecostalism: Question Answer Notes Pentecostalism 33 None No sabianism beliefs that would impact health care. Sexual [...] Information RESULTS No Results REASON FOR VISIT REDO EKG MEDICAL (GENERAL) HISTORY Type Description Date Medical History asthma, moderate persistent Medical History attention deficit disorder with hyperact ivity Medical History nicotine dependence Medical History hyperglyceridemia Medical History herniated disk, lumbar spine Medical History history of urinary incontinence post pre gnancy Surgical History ventral hernia repair ([facility]) 2 010 Surgical History appendectomy 2016 Surgical History Lipoma removed on back 11/2019 Hospitalization History related to surgery and childbirth Goals Section No Information Health Concerns No Information MEDICAL EQUIPMENT No Information MENTAL STATUS No Information FUNCTIONAL STATUS No Information ASSESSMENTS Encounter Date Diagnosis Assessment Notes Treatment Notes Treatm ent Clinical Notes Mar, Tachycardia (ICD-10 - R00.0) PLAN OF TREATMENT Medication Medication Name Sig Start Date Stop Date Adderall XR 25 MG 1 capsule in the morning Ora lly once daily (MDD #1). DX: F90.8 , code B for 28 day(s) Feb, Loratadine 10 MG 1 tablet Orally Once a day for 90 days May, Treatment Notes Test Name Order Date ELECTROCARDIOGRAM, COMPLETE EKG 2020-03-31 Next Appt Details Provider Name:Aman Grant, 2020-03-25 8 02:00:00 PM, [address] [place], [address], Insurance Providers Payer Name Payer Address Payer Phone Insured Name Patient Relati onship to Insured Coverage Start Date Coverage End Date [facility] [address] [facility] [address] TAWNYA BELLO self
--- OUTSIDE RECORDS SUMMARY | 2020-06-08 12:29 | CCD ---
Author Author [facility] Organization [facility] Address Unknown Phone Unavailable Care Team Providers Care Ob Tech Name Role Phone Aman Garnt Unavailable PROBLEMS Type Condition ICD9-CM Code LYI04-PL Code Onset Dates Condition S tatus SNOMED Code Notes Problem Body mass index (BMI) of 30.0 to 39.9 E66.9 Ac tive 056688331 Problem Other obesity due to excess calories E66.09 Act martha 822789417 Problem Attention-deficit hyperactivity disorder, combined type F90.2 Active 36389884 Problem Asthma exacerbation J45.901 Active 049649430 Problem Pure hyperglyceridemia E78.1 Active 329451781 Problem Chronic obstructive pulmonary disease, unspecified COPD ty pe J44.9 Active 72788652 Problem Cigarette nicotine dependence, uncomplicated F17.2 10 Active 37586020 Problem Moderate persistent asthma, uncomplicated J45.40 Active 558832449 Problem Sleep apnea, unspecified type G47.30 Active 73 237422 Problem Pure hypertriglyceridemia E78.1 Active 411239 009 Problem Lumbago with sciatica, right side M54.41 Active 511579201 Problem Allergic rhinitis due to animal hair and dander J3 0.81 Active 943483043311168 Problem Dysthymia F34.1 Active 98712125 Problem Other chronic pain G89.29 Active 06421462 Problem Daytime somnolence R40.0 Active 829315010820 Problem Insomnia, unspecified type G47.00 Active 17225 2000 Problem Oxygen desaturation during sleep G47.34 Active 198334213 Problem COPD exacerbation J44.1 Active 094512178 Problem Mild intermittent asthma, uncomplicated J45.20 Active 045675660 Problem Tobacco dependence F17.200 Active 76854524 Problem Generalized anxiety disorder F41.1 Active 218 97557 Problem Intervertebral disc disorders with radiculopathy , lumbar region M51.16 Active 218843339616276 Problem Herniated intervertebral disc of lumbar spine M51. 26 Active 661414114091210 Problem Obstructive sleep apnea syndrome G47.33 Active 64172361 Problem Gastroesophageal reflux disease, esophagitis pre sence not specified K21.9 Active 379353629 Problem L4-L5 disc bulge M51.26 Active 678131415 Problem Myalgia, other site M79.18 Active 21684977 Problem Intervertebral disc disorder with radiculopathy of lumbar region M51.16 Active 465316833473237 Problem History of asthma Z87.09 Active 176953223 Problem Lumbago with sciatica, left side M54.42 Active 275962556 ALLERGIES Allergen (clinical drug ingredient) Drug/Non Drug Allergy do cumented on EMR Reaction Allergy Type Onset Date Status oseltamivir Tamiflu(NDC Code:[address]-05) Nausea/Vomiting Drug Owen rgy Active nicotine Nicotine Polacrilex(NDC Code:[address]-07) thro at burning Drug Allergy Active ENCOUNTERS from 1985 to 2020-05-03 Encounter Location Date Provider Diagnosis [address] [address] Apr, Aman Grant Attention-deficit hyperactivity disorder , combined [...] Education Language: Question Answer Notes Languages spoken: Mohawk Caodaism: Question Answer Notes Caodaism 33 None No jehovah's witness beliefs that would impact health care. Sexual [...] Notes Start Da te End Date Status Loratadine 10 MG 1 tablet Orally Once a day for 90 days May, Active Albuterol Sulfate HFA 108 (90 Base) MCG/ACT 2 puffs In halation four times daily as needed for 30 days Active Nexplanon 68 MG Subcutaneous Active Adderall XR 25 MG 1 capsule in the morning Ora lly once daily (MDD #1). DX: F90.8 , code B for 28 day(s) Apr, Active Incruse Ellipta 62.5 MCG/INH 1 puff Inhalation Once a day for 30 days May, Active PROCEDURES No Information RESULTS No Results REASON FOR VISIT refill-adderall MEDICAL (GENERAL) HISTORY Type Description Date Medical History asthma, moderate persistent Medical History attention deficit disorder with hyperact ivity Medical History nicotine dependence Medical History hyperglyceridemia Medical History herniated disk, lumbar spine Medical History history of urinary incontinence post pre gnancy Surgical History ventral hernia repair ([facility]) 2 010 Surgical History appendectomy 2015 Surgical History Lipoma removed on back 11/2019 Hospitalization History related to surgery and childbirth Goals Section No Information Health Concerns No Information MEDICAL EQUIPMENT No Information MENTAL STATUS No Information FUNCTIONAL STATUS No Information ASSESSMENTS Encounter Date Diagnosis Assessment Notes Treatment Notes Treatm ent Clinical Notes Apr, Attention-deficit hyperactiv ity disorder, combined type (ICD-10 - F90.2) PLAN OF TREATMENT Medication Medication Name Sig Start Date Stop Date Loratadine 10 MG 1 tablet Orally Once a day for 90 days May, Adderall XR 25 MG 1 capsule in the morning Ora lly once daily (MDD #1). DX: F90.8 , code B for 28 day(s) Apr, Next Appt Details Provider Name:Aman Grant, 2020-02-0 4 02:30:00 PM, [address] [place], [address], Insurance Providers Payer Name Payer Address Payer Phone Insured Name Patient Relati onship to Insured Coverage Start Date Coverage End Date [facility] COMMUN[facility] PLAN [facility] [address] [facility] [phone] TAWNYA BELLO self
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
--- OUTSIDE RECORDS SUMMARY | 2020-06-08 12:29 | CCD ---
Author Author [facility] Organization [facility] Address Unknown Phone Unavailable Care Team Providers Care Coverage Analyst Name Role Phone Aman Grant Unavailable PROBLEMS Type Condition ICD9-CM Code [id number] Code Onset Dates Condition S tatus SNOMED Code Notes Problem Body mass index (BMI) of 30.0 to 39.9 E66.9 Ac tive 442062698 Problem Other obesity due to excess calories E66.09 Act martha 011843643 Problem Attention-deficit hyperactivity disorder, combined type F90.2 Active 05409039 Problem Asthma exacerbation J45.901 Active 468438339 Problem Pure hyperglyceridemia E78.1 Active 981174108 Problem Chronic obstructive pulmonary disease, unspecified COPD ty pe J44.9 Active 43624272 Problem Cigarette nicotine dependence, uncomplicated F17.2 10 Active 51106064 Problem Moderate persistent asthma, uncomplicated J45.40 Active 399645982 Problem Sleep apnea, unspecified type G47.30 Active 73 721153 Problem Pure hypertriglyceridemia E78.1 Active 585370 009 Problem Lumbago with sciatica, right side M54.41 Active 821142483 Problem Allergic rhinitis due to animal hair and dander J3 0.81 Active 473311235444440 Problem Dysthymia F34.1 Active 48648750 Problem Other chronic pain G89.29 Active 09625078 Problem Daytime somnolence R40.0 Active 075827549333 Problem Insomnia, unspecified type G47.00 Active 77234 2000 Problem Oxygen desaturation during sleep G47.34 Active 695739059 Problem COPD exacerbation J44.1 Active 767760518 Problem Mild intermittent asthma, uncomplicated J45.20 Active 743873779 Problem Tobacco dependence F17.200 Active 92877546 Problem Generalized anxiety disorder F41.1 Active 218 50475 Problem Intervertebral disc disorders with radiculopathy , lumbar region M51.16 Active 875152206348235 Problem Herniated intervertebral disc of lumbar spine M51. 26 Active 001736440417521 Problem Obstructive sleep apnea syndrome G47.33 Active 89177071 Problem Gastroesophageal reflux disease, esophagitis pre sence not specified K21.9 Active 164550665 Problem L4-L5 disc bulge M51.26 Active 001983838 Problem Myalgia, other site M79.18 Active 96021168 Problem Intervertebral disc disorder with radiculopathy of lumbar region M51.16 Active 959384492727653 Problem History of asthma Z87.09 Active 410730628 Problem Lumbago with sciatica, left side M54.42 Active 231805995 ALLERGIES Allergen (clinical drug ingredient) Drug/Non Drug Allergy do cumented on EMR Reaction Allergy Type Onset Date Status oseltamivir Tamiflu(NDC Code:[address]-69) Nausea/Vomiting Drug Owen rgy Active nicotine Nicotine Polacrilex(NDC Code:[address]-18) thro at burning Drug Allergy Active ENCOUNTERS from 1985 to 2020-04-07 Encounter Location Date Provider Diagnosis [address] [address] Feb, Aman Grant Tachycardia R00.0 IMMUNIZATIONS Vaccine Route Administration Date Status Pneumococcal [...] Education Language: Question Answer Notes Languages spoken: German Lutheran: Question Answer Notes Lutheran 33 None No uatsdin beliefs that would impact health care. Sexual [...] Information RESULTS No Results REASON FOR VISIT EKG MEDICAL (GENERAL) HISTORY Type Description Date Medical History asthma, moderate persistent Medical History attention deficit disorder with hyperact ivity Medical History nicotine dependence Medical History hyperglyceridemia Medical History herniated disk, lumbar spine Medical History history of urinary incontinence post pre gnancy Surgical History ventral hernia repair ([facility]) 2 010 Surgical History appendectomy 2016 Surgical History Lipoma removed on back 11/2019 Hospitalization History related to surgery and childbirth Goals Section No Information Health Concerns No Information MEDICAL EQUIPMENT No Information MENTAL STATUS No Information FUNCTIONAL STATUS No Information ASSESSMENTS Encounter Date Diagnosis Assessment Notes Treatment Notes Treatm ent Clinical Notes Feb, Tachycardia (ICD-10 - R00.0) PLAN OF TREATMENT Medication Medication Name Sig Start Date Stop Date Adderall XR 25 MG 1 capsule in the morning Ora lly once daily (MDD #1). DX: F90.8 , code B for 28 day(s) Mar, Loratadine 10 MG 1 tablet Orally Once a day for 90 days May, Treatment Notes Test Name Order Date ELECTROCARDIOGRAM, COMPLETE EKG 2020-04-07 Next Appt Details Provider Name:Aman Grant, 2020-03-25 8 02:00:00 PM, [address] [place], [address], Insurance Providers Payer Name Payer Address Payer Phone Insured Name Patient Relati onship to Insured Coverage Start Date Coverage End Date [facility] [address] [facility] [address] TAWNYA BELLO self
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
--- OUTSIDE RECORDS SUMMARY | 2020-06-08 12:30 | CCD ---
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 Name Role Phone Aman Grant Unavailable PROBLEMS Type Condition ICD9-CM Code FPY02-KW Code Onset Dates Condition S tatus SNOMED Code Notes Problem Body mass index (BMI) of 30.0 to 39.9 E66.9 Ac tive 449349363 Problem Other obesity due to excess calories E66.09 Act martha 058472904 Problem Attention-deficit hyperactivity disorder, combined type F90.2 Active 74056747 Problem Asthma exacerbation J45.901 Active 741884803 Problem Pure hyperglyceridemia E78.1 Active 387962680 Problem Chronic obstructive pulmonary disease, unspecified COPD ty pe J44.9 Active 68128960 Problem Cigarette nicotine dependence, uncomplicated F17.2 10 Active 51934724 Problem Moderate persistent asthma, uncomplicated J45.40 Active 531974929 Problem Sleep apnea, unspecified type G47.30 Active 73 586802 Problem Pure hypertriglyceridemia E78.1 Active 807730 009 Problem Lumbago with sciatica, right side M54.41 Active 808673589 Problem Allergic rhinitis due to animal hair and dander J3 0.81 Active 476965114856482 Problem Dysthymia F34.1 Active 19046931 Problem Other chronic pain G89.29 Active 09204623 Problem Daytime somnolence R40.0 Active 212626810281 Problem Insomnia, unspecified type G47.00 Active 38685 2000 Problem Oxygen desaturation during sleep G47.34 Active 251515855 Problem COPD exacerbation J44.1 Active 100242873 Problem Mild intermittent asthma, uncomplicated J45.20 Active 697611164 Problem Tobacco dependence F17.200 Active 69395315 Problem Generalized anxiety disorder F41.1 Active 218 46392 Problem Intervertebral disc disorders with radiculopathy , lumbar region M51.16 Active 513748390683724 Problem Herniated intervertebral disc of lumbar spine M51. 26 Active 490596087856759 Problem Obstructive sleep apnea syndrome G47.33 Active 30146316 Problem Gastroesophageal reflux disease, esophagitis pre sence not specified K21.9 Active 180601651 Problem L4-L5 disc bulge M51.26 Active 118550814 Problem Myalgia, other site M79.18 Active 15091710 Problem Intervertebral disc disorder with radiculopathy of lumbar region M51.16 Active 630576161320592 Problem History of asthma Z87.09 Active 564695123 Problem Lumbago with sciatica, left side M54.42 Active 439840304 ALLERGIES Allergen (clinical drug ingredient) Drug/Non Drug Allergy do cumented on EMR Reaction Allergy Type Onset Date Status oseltamivir Tamiflu(NDC Code:[address]-80) Nausea/Vomiting Drug Owen rgy Active nicotine Nicotine Polacrilex(NDC Code:[address]-12) thro at burning Drug Allergy Active ENCOUNTERS from 1985 to 2020-03-25 Encounter Location Date Provider Diagnosis [address] [address] 13 Feb, 2020 Aman Grant Encounter for other preprocedural examin ation Z01.818 ; Superior glenoid labrum lesion of right shoulder, subsequent encounter S43.431D ; Body mass index (BMI) of 30.0 to 39.9 E66.9 ; Obstructive sleep apnea syndrome G47.33 ; Attention-deficit hyperactivity disorder, combined type F90.2 ; Pure hypertriglyceridemia E78.1 ; Cigarette nicotine dependence, uncomplicated F17.210 ; Generalized anxiety disorder F41.1 and Allergic rhinitis due to animal hair and dander J30.81 IMMUNIZATIONS Vaccine Route Administration Date Status Influenza [...] Education Language: Question Answer Notes Languages spoken: Kiswahili Scientology: Question Answer Notes Scientology 33 None No judaism beliefs that would impact health care. Sexual [...] REASON FOR REFERRAL No Information VITAL SIGNS Weight 256.6 lbs Feb, Height 65 in Feb, BMI 42.70 kg/m2 Feb, Heart Rate 112 /min Feb, Respiratory Rate 18 /min Feb, Temperature 98.8 degrees Fahrenheit Feb, Oximetry 97 Feb, Blood pressure systolic 126 mm Hg Feb, Blood pressure diastolic 78 mm Hg Feb, MEDICATIONS Medication SIG (Take, Route, Frequency, Duration) [...] Information RESULTS No Results REASON FOR VISIT Pre -Op, Dr Chacon-right shoulder anthroscopy @ [facility] on 03/26/2020, General ane sthesia, DX code S43.431D attn: Vidya -fax [phone] MEDICAL (GENERAL) HISTORY Type Description Date Medical History asthma, moderate persistent Medical History attention deficit disorder with hyperact ivity Medical History nicotine dependence Medical History hyperglyceridemia Medical History herniated disk, lumbar spine Medical History history of urinary incontinence post pre gnancy Surgical History ventral hernia repair ([facility]) 2 010 Surgical History appendectomy 2015 Surgical History Lipoma removed on back 11/2019 Hospitalization History related to surgery and childbirth Goals Section No Information Health Concerns No Information MEDICAL EQUIPMENT No Information MENTAL STATUS No Information FUNCTIONAL STATUS No Information ASSESSMENTS Encounter Date Diagnosis Assessment Notes Treatment Notes Treatm ent Clinical Notes Feb, Encounter for other preprocedural examination ( CD-10 - Z01.818) I discussed the risks vs. benefits of surgery with the patient in generic terms. I feel that she is at higher than average risk for perioperative complications based on the general low risks of the procedure and her chronic medical conditions. She knows that there is always some risk with surgery and she has to be comfortable that, for he], the benefits of surgery outweigh the risks in order to proceed. If she has further questions regarding the specifics of the proposed surgical procedure and specific risks, she should discuss them with the surgeon. I feel that the patient's acute and chronic medical conditions are not fully optimized at the present time, however, there are no readily alterable factors that could lower the patient's perioperative risk. Specifically, we have been working on evaluating her disordered sleep for a couple of years and it still has not happened, mostly for patient related time and financial reasons. I do think that anesthesia can prepare for the fact that she likely has RICKIE and keep her safe during the perioperative period with this information. She has also been working on quitting smoking for years, but has never been in the action phase for more than a few months at most. Her asthma is well controlled. I have recommended the patient stop all medications as recommended by their surgeon and anesthesia. In addition I recommend she not take Adderall within 24h of the procedure so the stimulant won't potentially interact or counteract the anesthesia. Feb, Superior glenoid labrum lesi on of right shoulder, subsequent encounter (ICD-10 - S43.431D) She is scheduled for a procedure with Dr. Chacon in the next couple of weeks. Feb, Body mass index (BMI) of 30.0 to 39.9 (ICD-10 - E66.9) She is aware that this will impact her health both now and in the future. Encouraged her to engage in lifestyle modifications focused on dietary changes and increasing activity. Ordered TSH. Feb, Obstructive sleep apnea syndrome (ICD-10 - G47.3 3) She has RICKIE based on information from a home sleep test. She has not been in for the formal PSG and/or split-night study to determine what level of CPAP is therapeutic for her. Per her request, I will now refer her for further evaluation of this in [place]. However, in the interim anesthesia should be aware of this issue under ongoing investigation. Feb, Attention-deficit hyperactiv ity disorder, combined type (ICD-10 - F90.2) She does well with this medication when she takes it; it helps focus her and makes her able to make more clear and consistent decisions with her children's institution attendant. I have asked her to hold this medication for 24h before the procedure so it won't interfere with her anesthesia. Feb, Pure hypertriglyceridemia (ICD-10 - E78.1) I ordered labs for before the next office visit. Feb, Cigarette nicotine dependence, uncomplicated (IC D-10 - F17.210) Contemplative. She has cut back to 8/day from around a pack a day. I encouraged them to think about barriers they may encounter in deciding to quit completely. Will continue to assess for readiness to move to the preparation stage. Feb, Generalized anxiety disorder (ICD-10 - F41.1) Her anxiety seems reasonably controlled. The Adderall, paradoxically, seems to help with this too by giving her more mental focus and control. Continue current regimen, monitor. Feb, Allergic rhinitis due to animal hair and dander (ICD-10 - J30.81) I refilled her loratadine per her request. PLAN OF TREATMENT Medication Medication Name Sig Start Date Stop Date Adderall XR 25 MG 1 capsule in the morning Ora lly once daily (MDD #1). DX: F90.8 , code B for 28 day(s) Feb, Loratadine 10 MG 1 tablet Orally Once a day for 90 days May, Treatment Notes Assessment Notes Clinical Notes Encounter for other preprocedural examination I discussed the risks vs. benefits of surgery with the patient in generic terms. I feel that she is at higher than average risk for perioperative complications based on the general low risks of the procedure and her chronic medical conditions. She knows that there is always some risk with surgery and she has to be comfortable that, for he], the benefits of surgery outweigh the risks in order to proceed. If she has further questions regarding the specifics of the proposed surgical procedure and specific risks, she should discuss them with the surgeon.I feel that the patient's acute and chronic medical conditions are not fully optimized at the present time, however, there are no readily alterable factors that could lower the patient's perioperative risk. Specifically, we have been working on evaluat ing her disordered sleep for a couple of years and it still has not happened, mostly for patient related time and financial reasons. I do think that anesthesia can prepare for the fact that she likely has RICKIE and keep her safe during the perioperative period with this information. She has also been working on quitting smoking for years, but has never been in the action phase for more than a few months at most. Her asthma is well controlled.I have recommended the patient stop all medications as recommended by their surgeon and anesthesia. In addition I recommend she not take Adderall within 24h of the procedure so the stimulant won't potentially interact or counteract the anesthesia. Superior glenoid labrum lesion of right shoulder, subsequent encounter She is scheduled for a procedure with Dr. Chacon in the next couple of weeks. Body mass index (BMI) of 30.0 to 39.9 Sh e is aware that this will impact her health both now and in the future. Encouraged her to engage in lifestyle modifications focused on dietary changes and increasing activity. Ordered TSH. Obstructive sleep apnea syndrome She has RICKIE based on information from a home sleep test. She has not been in for the formal PSG and/or split-night study to determine what level of CPAP is therapeutic for her. Per her request, I will now refer her for further evaluation of this in [place]. However, in the interim anesthesia should be aware of this issue under ongoing investigation. Attention-deficit hyperactivity disorder, combined type She does well with this medication when she takes it; it helps focus her and makes her able to make more clear and consistent decisions with her children's institution attendant. I have asked her to hold this medication for 24h before the procedure so it won't interfere with her anesthesia. Pure hypertriglyceridemia I ordered labs for before the next office visit. Cigarette nicotine dependence, uncomplicated Contemplative. She has cut back to 8/day from around a pack a day. I encouraged them to think about barriers they may encounter in deciding to quit completely. Will continue to assess for readiness to move to the preparation stage. Generalized anxiety disorder Her anxiety seems reasonably controlled. The Adderall, paradoxically, seems to help with this too by giving her more mental focus and control. Continue current regimen, monitor. Allergic rhinitis due to animal hair and dander I refilled her loratadine per her request. Treatment Notes Test Name Order Date CBC - Complete Blood Count 2020-03-25 Comprehensive Metabolic Profile (CMP) 2020-03-25 LIPID PANEL (CARDIAC RISK) 2020-03-25 TSH 2020-03-25 Next Appt Details as scheduled Reason: Provider Name:Aman Grant, 2020-03-25 8 02:00:00 PM, [address] [place], [address], Insurance Providers Payer Name Payer Address Payer Phone Insured Name Patient Relati onship to Insured Coverage Start Date Coverage End Date [facility] [employer] [facility] [address] [facility] [id number] [phone] TAWNYA BELLO
--- OUTSIDE RECORDS SUMMARY | 2020-06-08 12:30 | CCD ---
Author Author [facility] Organization [facility] Address Unknown Phone Unavailable Care Team Providers Care Primary Substance Abuse Counselor Name Role Phone Ce FITZPATRICK MD Unavailable Unavailable Ce FITZPATRICK MD Unavailable Unavailable Ce FITZPATRICK MD Unavailable Unavailable Ce FITZPATRICK MD Unavailable Unavailable Ce FITZPATRICK MD Unavailable Unavailable Ce FITZPATRICK MD Unavailable Unavailable Ce FITZPATRICK MD Unavailable Unavailable Ce FITZPATRICK MD Unavailable Unavailable Ce FITZPATRICK MD Unavailable Unavailable Ce FITZPATRICK MD Unavailable Unavailable Ce FITZPATRICK MD Unavailable Unavailable Ce FITZPATRICK MD Unavailable Unavailable Ce FITZPATRICK MD Unavailable Unavailable Ce FITZPATRICK MD Unavailable Unavailable BARAYUGACe MD Unavailable Unavailable BARAYUGACe MD Unavailable Unavailable BARAYUGACe MD Unavailable Unavailable BARAYUGACe MD Unavailable Unavailable BARAYUGA, Ce ULLOA MD Unavailable Unavailable BARAYUGACe MD Unavailable Unavailable BARAYCe FREIRE MD Unavailable Unavailable BARAYUGA, Ce ULLOA MD Unavailable Unavailable BARAYUGA, Ce ULLOA MD Unavailable Unavailable BARAYUGA, Ce ULLOA MD Unavailable Unavailable BARAYUGA, Ce ULLOA MD Unavailable Unavailable BARAYUGACe MD Unavailable Unavailable BARAYUGACe MD Unavailable Unavailable BARAYUGACe MD Unavailable Unavailable BARAYUGA, Ce ULLOA MD Unavailable Unavailable BARAYUGA, Ce ULLOA MD Unavailable Unavailable BARAYUGA, Ce ULLOA MD Unavailable Unavailable BARAYUGACe MD Unavailable Unavailable BARAYUGACe MD Unavailable Unavailable BARAYUGACe MD Unavailable Unavailable [place], Janel Trsitin Unavailable Unavailable Maribel, Janel Tristin Unavailable Unavailable [place], Janel Tristin Unavailable Unavailable [place], Janel Tristin Unavailable Unavailable [place], Janel Tristin Unavailable Unavailable Maribel, Janel Tristin Unavailable Unavailable Maribel, Janel Tristin Unavailable Unavailable Maribel, Janel Tristin Unavailable Unavailable Fish, [facility], PA-C Unavailable Unavailabl e Fish, [facility], PA-C Unavailable Unavailabl e Fish, [facility], PA-C Unavailable Unavailabl e Fish, [facility], PA-C Unavailable Unavailabl e Fish, [facility], PA-C Unavailable Unavailabl e Fish, [facility], PA-C Unavailable Unavailabl e Fish, [facility], PA-C Unavailable Unavailabl e Fish, [facility], PA-C Unavailable Unavailabl e Fish, [facility], PA-C Unavailable Unavailabl e Fish, [facility], PA-C Unavailable Unavailabl e Fish, [facility], PA-C Unavailable Unavailabl e Fish, [facility], PA-C Unavailable Unavailabl e Fish, [facility], PA-C Unavailable Unavailabl e Fish, [facility], PA-C Unavailable Unavailabl e Fish, [facility], PA-C Unavailable Unavailabl e Fish, [facility], PA-C Unavailable Unavailabl e Fish, [facility], PA-C Unavailable Unavailabl e Fish, [facility], PA-C Unavailable Unavailabl e Fish, [facility], PA-C Unavailable Unavailabl e Fish, [facility], PA-C Unavailable Unavailabl e Fish, [facility], PA-C Unavailable Unavailabl e Fish, [facility], PA-C Unavailable Unavailabl e Fish, [facility], PA-C Unavailable Unavailabl e Fish, [facility], PA-C Unavailable Unavailabl e Fish, [facility], PA-C Unavailable Unavailabl e Fish, [facility], PA-C Unavailable Unavailabl e Fish, [facility], PA-C Unavailable Unavailabl e Fish, [facility], PA-C Unavailable Unavailabl e Fish, [facility], PA-C Unavailable Unavailabl e Fish, [facility], PA-C Unavailable Unavailabl e Fish, [facility], PA-C Unavailable Unavailabl e Fish, [facility], PA-C Unavailable Unavailabl e Fish, [facility], PA-C Unavailable Unavailabl e Geremias Obrien MD Unavailable Unavailable Geremias Obrien MD Unavailable Unavailable Geremias Obrien MD Unavailable Unavailable Geremias Obrien MD Unavailable Unavailable Geremias Obrien MD Unavailable Unavailable Geremias Obrien MD Unavailable Unavailable Geremias Obrien MD Unavailable Unavailable Geremias Obrien MD Unavailable Unavailable Geremias Obrien MD Unavailable Unavailable Geremias Obrien MD Unavailable Unavailable Geremias Obrien MD Unavailable Unavailable Geremias Obrien MD Unavailable Unavailable Geremias Obrien MD Unavailable Unavailable Geremias Obrien MD Unavailable Unavailable Geremias Obrien MD Unavailable Unavailable Geremias Obrien MD Unavailable Unavailable Geremias Obrien MD Unavailable Unavailable Geremias Obrien MD Unavailable Unavailable Geremias Obrien MD Unavailable Unavailable Heitagnes, Geremias Anne MD Unavailable Unavailable Heitagnes, Geremias Anne MD Unavailable Unavailable Hemanuel, Geremias Anen MD Unavailable Unavailable Heitagnes, Geremias Anne MD Unavailable Unavailable Hemanuel, Geremias Anne MD Unavailable Unavailable Hemanuel, Geremias Anne MD Unavailable Unavailable Heitagnes, Geremias Anne MD Unavailable Unavailable Uriostegui, Cory Unavailable Unavailable Uriostegui, Cory Unavailable Unavailable Uriostegui, Cory Unavailable Unavailable Uriostegui, Cory Unavailable Unavailable Uriostegui, Cory Unavailable Unavailable Uriostegui, Cory Unavailable Unavailable Uriostegui, Cory Unavailable Unavailable Uriostegui, Cory Unavailable Unavailable Uriostegiu, Cory Unavailable Unavailable Uriostegui, Cory Unavailable Unavailable Uriostegui, Cory Unavailable Unavailable Uriostegui, Cory Unavailable Unavailable Uriostegui, Cory Unavailable Unavailable Uriostegui, Cory Unavailable Unavailable Uriostegui, Cory Unavailable Unavailable Uriostegui, Cory Unavailable Unavailable Uriostegui, Cory Unavailable Unavailable Uriostegui, Cory Unavailable Unavailable Uriostegui, Cory Unavailable Unavailable Uriostegui, Cory Unavailable Unavailable Uriostegui, Cory Unavailable Unavailable Uriostegui, Cory Unavailable Unavailable Uriostegui, Cory Unavailable Unavailable Uriostegui, Cory Unavailable Unavailable Uriostegui, Cory Unavailable Unavailable Uriostegui, Cory Unavailable Unavailable Uriostegui, Cory Unavailable Unavailable Uriostegui, Cory Unavailable Unavailable Uriostegui, Cory Unavailable Unavailable Uriostegui, Cory Unavailable Unavailable Uriostegui, Cory Unavailable Unavailable Uriostegui, Cory Unavailable Unavailable Uriostegui, Cory Unavailable Unavailable Uriostegui, Cory Unavailable Unavailable Uriostegui, Cory Unavailable Unavailable Uriostegui, Cory Unavailable Unavailable Uriostegui, Cory Unavailable Unavailable Uriostegui, Cory Unavailable Unavailable Uriostegui, Cory Unavailable Unavailable Uriostegui, Cory Unavailable Unavailable Uriostegui, Cory Unavailable Unavailable Uriostegui, Cory Unavailable Unavailable Uriostegui, Cory Unavailable Unavailable Uriostegui, Cory Unavailable Unavailable CadenaMike zapata MD Unavailable Unavailable CadenaMike zapata MD Unavailable Unavailable CadenaMike zapata MD Unavailable Unavailable CadenaMike zapata MD Unavailable Unavailable CadenaMike zapata MD Unavailable Unavailable CadenaMike zapata MD Unavailable Unavailable CadenaMike MD Unavailable Unavailable CadenaMike MD Unavailable Unavailable CadenaMike MD Unavailable Unavailable CadenaMike zapata MD Unavailable Unavailable CadenaMike zapata MD Unavailable Unavailable CadenaMike zapata MD Unavailable Unavailable CadenaMike zapata MD Unavailable Unavailable CadenaMike zapata MD Unavailable Unavailable CadenaMike zapata MD Unavailable Unavailable CadenaMike zapata MD Unavailable Unavailable CadenaMike zapata MD Unavailable Unavailable CadenaMike zapata MD Unavailable Unavailable CadenaMike zapata MD Unavailable Unavailable Mike Cadena MD Unavailable Unavailable CadenaMike zapata MD Unavailable Unavailable CadenaMike zapata MD Unavailable Unavailable CadenaMike zapata MD Unavailable Unavailable CadenaMike zapata MD Unavailable Unavailable CadenaMike zapata MD Unavailable Unavailable CadenaMike zapata MD Unavailable Unavailable Cadena, L Benedict OCHOA Unavailable Unavailable Cadena, L Benedict OCHOA Unavailable Unavailable Cadena, L Benedict MD Unavailable Unavailable Cadena, L Benedict MD Unavailable Unavailable Cadena, L Benedict MD Unavailable Unavailable Cadena, L Benedict MD Unavailable Unavailable Cadena, L Benedict MD Unavailable Unavailable Cadena, L Benedict MD Unavailable Unavailable Cadena, L Benedict MD Unavailable Unavailable Cadena, L Benedict MD Unavailable Unavailable Cadena, L Benedict MD Unavailable Unavailable Cadena, L Benedict MD Unavailable Unavailable Cadena, L Benedict MD Unavailable Unavailable Cadena, L Benedict MD Unavailable Unavailable Cadena, L Benedict MD Unavailable Unavailable Cadena, L Benedict MD Unavailable Unavailable Cadena, L Benedict MD Unavailable Unavailable Cadena, L Benedict MD Unavailable Unavailable Cadena, L Benedict MD Unavailable Unavailable Cadena, L Benedict MD Unavailable Unavailable Cadena, L Benedict MD Unavailable Unavailable HEIDI MCKINNON MD Unavailable Unavailable HEIDI MCKINNON MD Unavailable Unavailable HEIDI MCKINNON MD Unavailable Unavailable HEIDI MCKINNON MD Unavailable Unavailable HEIDI MCKINNON MD Unavailable Unavailable HEIDI MCKINNON MD Unavailable Unavailable HEIDI MCKINNON MD Unavailable Unavailable HEIDI MCKINNON MD Unavailable Unavailable HEIDI MCKINNON MD Unavailable Unavailable HEIDI MCKINNON MD Unavailable Unavailable HEIDI MCKINNON MD Unavailable Unavailable HEIDI MCKINNON MD Unavailable Unavailable HEIDI MCKINNON MD Unavailable Unavailable HEIDI MCKINNON MD Unavailable Unavailable HEIDI MCKINNON MD Unavailable Unavailable HEIDI MCKINNON MD Unavailable Unavailable HEIDI MCKINNON MD Unavailable Unavailable HEIDI MCKINNON MD Unavailable Unavailable HEIDI MCKINNON MD Unavailable Unavailable HEIDI MCKINNON MD Unavailable Unavailable HEIDI MCKINNON MD Unavailable Unavailable HEIDI MCKINNON MD Unavailable Unavailable HEIDI MCKINNON MD Unavailable Unavailable HEIDI MCKINNON MD Unavailable Unavailable HEIDI MCKINNON MD Unavailable Unavailable HEIDI MCKINNON MD Unavailable Unavailable HEIDI MCKINNON MD Unavailable Unavailable HEIDI MCKINNON MD Unavailable Unavailable HEIDI MCKINNON MD Unavailable Unavailable HEIDI MCKINNON MD Unavailable Unavailable HEIDI MCKINNON MD Unavailable Unavailable HEIDI MCKINNON MD Unavailable Unavailable HEIDI MCKINNON MD Unavailable Unavailable Re-disclosure Warning The records that you are about to access may contain information from federally-assisted alcohol or drug abuse programs. If such information is present, then the following federally mandated warning applies: This information has been disclosed to you from records protected by federal confidentiality rules (42 CFR part 2). The federal rules prohibit you from making any further disclosure of this information unless further disclosure is expressly permitted by the written consent of the person to whom it pertains or as otherwise permitted by 42 CFR part 2. A general authorization for the release of medical or other information is NOT sufficient for this purpose. The Federal rules restrict any use of the information to criminally investigate or prosecute any alcohol or drug abuse patient.The records that you are about to access may contain highly sensitive health information, the redisclosure of which is protected by Article 27-F of the [facility] Public Health law. If you continue you may have access to information: Regarding HIV / AIDS; Provided by facilities licensed or operated by the [facility] Office of Mental Health; or Provided by the [facility] Office for People With Developmental Disabilities. If such information is present, then the following [facility] mandated warning applies: This information has been disclosed to you from confidential records which are protected by state law. State law prohibits you from making any further disclosure of this information without the specific written consent of the person to whom it pertains, or as otherwise permitted by law. Any unauthorized further disclosure in violation of state law may result in a fine or chcf sentence or both. A general authorization for the release of medical or other information is NOT sufficient authorization for further disc losure. Allergies and Adverse Reactions Type Description Substance Reaction Status Data Source(s ) Drug allergy Tamiflu Oseltamivir Nausea/Vomiting Active eCW1 ([facility]) Family History Family Member Name Family Member Gender Family Member Status Date o f Status Description Data Source(s) Unknown Female Problem MEDENT ([facility]) Unknown Female Problem MEDENT ([facility] ) Encounters Encounter Providers Location Date Indications Data Source(s ) OFFICE OUTPATIENT VISIT 15 MINUTES Attender: Ana LUTHER PA-C Physical Therapy 06/05/2020 08:15:00 AM EST MEDENT ([facility] ) Office Visit Attender: HEIDI MCKINNON MD Physical Therapy 08:30:00 AM EST MEDENT ([facility] ) Unknown [address] [facility] [address] 04/29/2020 12:00:00 AM EST eCW1 ([facility]) Unknown [address] [facility] [place] [address] 04/11/2020 12:00:00 AM EST eCW1 ([facility]) Office Visit Attender: HEIDI MCKINNON MD Physical Therapy 09:30:00 AM EST MEDENT ([facility]) [place] [address] [facility] [address] 03/31/2020 12:00:00 AM EST eCW1 ([facility]) Outpatient [address] [facility] [address] 03/25/2020 12:00:00 AM EST eCW1 ([facility]) Unknown [address] [facility] [address] 03/24/2020 12:00:00 AM EST eCW1 ([facility]) Outpatient [address] [facility] [address] 03/18/2020 12:00:00 AM EST eCW1 ([facility]) Unknown [address] [facility] [address] 03/17/2020 12:00:00 AM EST eCW1 ([facility]) Outpatient [address] [facility] [address] 03/07/2020 12:00:00 AM EST eCW1 ([facility]) Unknown [address] [facility] [address] 02/04/2020 12:00:00 AM EDT eCW1 ([facility]) Office Visit Attender: HEIDI MCKINNON MD Physical Therapy 02:30:00 PM EDT MEDENT ([facility]) Office Visit Attender: Benedict Cadena MD Physical Therapy 2019 10:00:00 AM EDT MEDENT ([facility]) Outpatient Attender: Tristin Yu/Toby/Dru/Aime 11/15/2019 08:30:00 AM EDT MEDENT ([facility]) Outpatient Attender: Benedict Cadena MD Physical Therapy 10/24/2019 0 1:15:00 PM EDT MEDENT ([facility]) Outpatient Attender: Benedict Cadena MD Physical Therapy 10/15/2019 0 8:00:00 AM EDT MEDENT ([facility]) [facility] [place] [address] [facility] [address] 10/08/2019 12:00:00 AM EDT [facility]CW1 [facility]) Unknown [address] [facility] [address] 10/04/2019 12:00:00 AM EDT eCW1 ([facility]) [facility] Res[facility] [address] [place] [address] 09/05/2019 12:00:00 AM EDT eCW1 ([facility]) Outpatient Attender: LAILA Yu/Toby/Dru/ Reindl 09/04/2019 02:00:00 PM EDT MEDENT ([facility]) Outpatient Attender: Omid Obrien MD Physical Therapy 11/2019 11:00:00 AM EDT MEDENT ([facility]) [facility] [address] [facility] [address] 08/31/2019 12:00:00 AM EDT eCW1 ([facility]) [facility] [address] [facility] [address] 08/27/2019 12:00:00 AM EDT eCW1 ([facility]) Outpatient Attender: Cory Uriostegui Physical Therapy 08/23/2019 09:00:0 0 AM EDT MEDENT ([facility]) OFFICE OUTPATIENT NEW 30 MINUTES Attender: Omid Obrien MD Phy sical Therapy 08/21/2019 02:00:00 PM EDT MEDENT ([facility]) [place] [address] [facility] [address] 08/10/2019 12:00:00 AM EDT eCW1 ([facility]) Outpatient Attender: LAILA Yu/[place]/Dru/ Reindl 08/07/2019 10:20:00 AM EDT MEDENT ([facility]) [facility] [address] [facility] [address] 07/31/2019 12:00:00 AM EDT eCW1 [facility] [place]) Outpatient Attender: LAILA Yu/Toby/Dru/ Reindl 07/03/2019 09:00:00 AM EDT MEDENT ([facility]) [facility] [address] [place] [address], [place] [address] 07/02/2019 12:00:00 AM EDT eCW1 ([facility]) [facility] [address] [place] [address], [place] [address] 07/02/2019 12:00:00 AM EDT eCW1 ([facility]) [address] [address] 06/28/2019 12:00:00 AM EST eCW1 ([facility]) Outpatient Attender: LAILA Yu/Toby/Dru/ Reindl 06/19/2019 08:30:00 AM EST MEDENT ([facility]) [address] [address] 06/08/2019 12:00:00 AM EST eCW1 ([facility]) [facility] [address] [place] [address], [place] [address] 06/08/2019 12:00:00 AM EST eCW1 [facility]) Outpatient 06/05/2019 01:53:00 PM EST [facility] Outpatient 05/30/2019 05:25:00 AM EST [facility] [address] [address] 05/28/2019 12:00:00 AM EST eCW1 [facility]) [address] [address] 05/28/2019 12:00:00 AM EST eCW1 ([facility]) [place] [id number] [place] [address], [place] [address] 05/24/2019 12:00:00 AM EST eCW1 ([facility]) [facility] [address] [facility] [address] 05/24/2019 12:00:00 AM EST eCW1 ([facility]) [facility] [address] [place] [address], [place] [address] 05/23/2019 12:00:00 AM EST eCW1 ([facility]) [facility] [address] [place] [address], [place] [address] 05/22/2019 12:00:00 AM EST eCW1 ([facility]) Outpatient 05/18/2019 12:56:00 PM EST [facility] [address] [place] [address], [place] [address] 05/16/2019 12:00:00 AM EST eCW1 ([facility]) [facility] [address] [place] [phone] 05/15/2019 12:00:00 AM EST eCW1 ([facility]) [address] [address] 05/14/2019 12:00:00 AM EST eCW1 ([facility]) Outpatient 05/13/2019 09:59:00 PM EST [facility] [address] [address] 05/09/2019 12:00:00 AM EST eCW1 ([facility]) [facility] [address] [place] [address], [place] [address] 05/08/2019 12:00:00 AM EST eCW1 ([facility]) [facility] [address] [place] [address], [place] [address] 05/04/2019 12:00:00 AM EST eCW1 ([facility]) [facility] [address] [place] [address] 05/02/2019 12:00:00 AM EST eCW1 ([facility]) [facility] [address] [place] [address] 05/02/2019 12:00:00 AM EST eCW1 ([facility]) Outpatient 04/26/2019 07:56:00 PM EST [facility] [address] [place] [address] 04/23/2019 12:00:00 AM EST eCW1 ([facility]) [facility] [address] [place] [address] 04/17/2019 12:00:00 AM EST eCW1 ([facility]) [facility] [place] [address] [facility] [place] [address] 04/11/2019 12:00:00 AM EST eCW1 ([facility]) Medications Medication Brand Name Start Date Product Form Dose Route Admi nistrative Instructions Pharmacy Instructions Status Indications Reaction Description Data Source(s) Ibuprofen 800 MG Oral Tablet Ibuprofen 06/05/2020 12:00:00 AM EST ORAL active MEDENT ([facility] ) 25 mg 06/01/2020 12:00:00 AM EST capsule,extended releas e 24hr 28 TAKE ONE CAPSULE BY MOUTH EVERY MORNING , MAXIMUM DAILY DOSE = 1 CAPSULE TAKE ONE CAPSULE BY MOUTH EVERY MORNING , MAXIMUM DAILY DOSE = 1 CAPSULE SOLD: 06/01/2020 [facility] 10 mg 05/30/2020 12:00:00 AM EST tablet 30 TAKE ONE TABLET BY MOUTH EVERY DAY TAKE ONE TABLET BY MOUTH EVERY DAY SOLD: 06/01/2020 [facility] 4 mg 05/05/2020 12:00:00 AM EST tablets,dose pack 21 TAKE BY MOUTH DAILY DIRECTED ON DOSEPACK TAKE BY MOUTH DAILY DIRECTED ON DOSEPACK SOLD: 05/05/2020 [facility] Acetaminophen 300 MG / Codeine Phosphate 30 MG Oral Ta blet Acetaminophen-Codeine #3 05/05/2020 12:00:00 AM EST active MEDENT ([facility]) Medrol Medrol 05/05/2020 12:00:00 AM EST active MEDENT ([facility]) 300-30 mg 05/05/2020 12:00:00 AM EST tablet 20 TAKE ONE TABLET BY MOUTH EVERY DAY NEEDED, MAXIMUM DAILY DOSE = ONE TABLET TAKE ONE TABLET BY MOUTH EVERY DAY NEEDED, MAXIMUM DAILY DOSE = ONE TABLET SOLD: 05/05/2020 [facility] 25 mg 05/04/2020 12:00:00 AM EST capsule,extended releas e 24hr 28 TAKE ONE CAPSULE BY MOUTH EVERY MORNING MAXIMUM DAILY DOSE = 1 TAKE ONE CAPSULE BY MOUTH EVERY MORNING MAXIMUM DAILY DOSE = 1 SOLD: 05/05/2020 [facility] 24 HR Amphetamine aspartate 6.25 MG / Am phetamine Sulfate 6.25 MG / Dextroamphetamine saccharate 6.25 MG / Dextroamphetamine Sulfate 6.25 MG Extended Release Oral Capsule [Adderall] Adderall XR 25 MG Adderall XR 25 MG 05/02/2020 12:00:00 AM EST 1.0 {capsule_in_the_morning} active Adderall XR 25 MG eCW1 ([facility]) 24 HR Amphetamine aspartate 6.25 MG / Am phetamine Sulfate 6.25 MG / Dextroamphetamine saccharate 6.25 MG / Dextroamphetamine Sulfate 6.25 MG Extended Release Oral Capsule [Adderall] Adderall XR 25 MG Adderall XR 25 MG 04/07/2020 12:00:00 AM EST 1.0 {capsule_in_the_morning} active Adderall XR 25 MG eCW1 ([facility]) 24 HR Amphetamine aspartate 6.25 MG / Am phetamine Sulfate 6.25 MG / Dextroamphetamine saccharate 6.25 MG / Dextroamphetamine Sulfate 6.25 MG Extended Release Oral Capsule [Adderall] Adderall XR 25 MG Adderall XR 25 MG 04/07/2020 12:00:00 AM EST 1.0 {capsule_in_the_morning} active Adderall XR 25 MG eCW1 ([facility]) 24 HR Amphetamine aspartate 6.25 MG / Am phetamine Sulfate 6.25 MG / Dextroamphetamine saccharate 6.25 MG / Dextroamphetamine Sulfate 6.25 MG Extended Release Oral Capsule [Adderall] Adderall XR 25 MG Adderall XR 25 MG 04/07/2020 12:00:00 AM EST 1.0 {capsule_in_the_morning} active Adderall XR 25 MG eCW1 ([facility]) 25 mg 04/07/2020 12:00:00 AM EST capsule,extended releas e 24hr 28 TAKE ONE CAPSULE BY MOUTH EVERY MORNING, MAXIMUM DAILY DOSE = 1 TAKE ONE CAPSULE BY MOUTH EVERY MORNING, MAXIMUM DAILY DOSE = 1 SOLD: 04/07/2020 [facility] 7.5-325 mg 04/04/2020 12:00:00 AM EST tablet 30 TAKE ONE TABLET BY MOUTH EVERY 6 HOURS NEEDED FOR MOUTH PAIN, MAXIMUM DAILY DOSE = 4 TAKE ONE TABLET BY MOUTH EVERY 6 HOURS NEEDED FOR MOUTH PAIN, MAXIMUM DAILY DOSE = 4 SOLD: 04/05/2020 [facility] Sulfamethoxazole 800 MG / Trimethoprim 160 MG Oral Tablet [B actrim] Bactrim DS 04/04/2020 12:00:00 AM EST ORAL active [facility] ([facility] ) Acetaminophen 325 MG / Hydrocodone Bitartrate 7.5 MG O ral Tablet Hydrocodone Bitartrate/Acetaminophen 04/04/2020 12:00:00 AM EST ORAL active [facility] ([facility] ) Sulfamethoxazole 800 MG / Trimethoprim 160 MG Oral Tab let 800-160 mg SULFAMETHOXAZOLE/TRIMETHOPRIM 04/04/2020 12:00:00 AM EST tablet 20 TAKE ONE TABLET BY MOUTH TWICE A DAY TAKE ONE TABLET BY MOUTH TWICE A DAY SOLD: 04/05/2020 [facility] 7.5-300 mg 03/26/2020 12:00:00 AM EST tablet 30 TAKE ONE TABLET BY MOUTH EVERY 4 HOURS NEEDED FOR PAIN , MAXIMUM DAILY DOSE = 6 TABLETS TAKE ONE TABLET BY MOUTH EVERY 4 HOURS NEEDED FOR PAIN , MAXIMUM DAILY DOSE = 6 TABLETS SOLD: 03/26/2020 [facility] 600 mg 03/25/2020 12:00:00 AM EST tablet 90 TAKE ONE TABLET BY MOUTH EVERY 8 HOURS NEEDED FOR PAIN TAKE ONE TABLET BY MOUTH EVERY 8 HOURS A S NEEDED FOR PAIN SOLD: 03/26/2020 [facility] Ibuprofen 600 MG Oral Tablet Ibuprofen 03/24/2020 12:00:00 AM EST ORAL active [facility] ([facility] ) Acetaminophen 300 MG / Hydrocodone Bitartrate 7.5 MG O ral Tablet Hydrocodone Bitartrate/Acetaminophen 03/24/2020 12:00:00 AM EST ORAL completed [facility] ([facility] ) 25 mg 03/10/2020 12:00:00 AM EST capsule,extended releas e 24hr 28 TAKE ONE CAPSULE BY MOUTH EVERY MORNING MAXIMUM DAILY DOSE = 1 CAPSULE TAKE ONE CAPSULE BY MOUTH EVERY MORNING MAXIMUM DAILY DOSE = 1 CAPSULE SOLD: 03/10/2020 [facility] 10 mg 03/08/2020 12:00:00 AM EST tablet 30 TAKE ONE TABLET BY MOUTH EVERY DAY TAKE ONE TABLET BY MOUTH EVERY DAY SOLD: 03/10/2020 [facility] 24 HR Amphetamine aspartate 6.25 MG / Am phetamine Sulfate 6.25 MG / Dextroamphetamine saccharate 6.25 MG / Dextroamphetamine Sulfate 6.25 MG Extended Release Oral Capsule [Adderall] Adderall XR 25 MG Adderall XR 25 MG 03/07/2020 12:00:00 AM EST 1.0 {capsule_in_the_morning} active Adderall XR 25 MG eCW1 ([facility]) 24 HR Amphetamine aspartate 6.25 MG / Am phetamine Sulfate 6.25 MG / Dextroamphetamine saccharate 6.25 MG / Dextroamphetamine Sulfate 6.25 MG Extended Release Oral Capsule [Adderall] Adderall XR 25 MG Adderall XR 25 MG 03/07/2020 12:00:00 AM EST 1.0 {capsule_in_the_morning} active Adderall XR 25 MG eCW1 ([facility]) 24 HR Amphetamine aspartate 6.25 MG / Am phetamine Sulfate 6.25 MG / Dextroamphetamine saccharate 6.25 MG / Dextroamphetamine Sulfate 6.25 MG Extended Release Oral Capsule [Adderall] Adderall XR 25 MG Adderall XR 25 MG 03/07/2020 12:00:00 AM EST 1.0 {capsule_in_the_morning} active Adderall XR 25 MG eCW1 ([facility]) 24 HR Amphetamine aspartate 6.25 MG / Am phetamine Sulfate 6.25 MG / Dextroamphetamine saccharate 6.25 MG / Dextroamphetamine Sulfate 6.25 MG Extended Release Oral Capsule [Adderall] Adderall XR 25 MG Adderall XR 25 MG 03/07/2020 12:00:00 AM EST 1.0 {capsule_in_the_morning} active Adderall XR 25 MG eCW1 ([facility]) Ibuprofen 600 MG Oral Tablet Ibuprofen 02/19/2020 12:00:00 AM EDT ORAL completed [facility] ([facility]) Acetaminophen 325 MG / Hydrocodone Bitartrate 7.5 MG O ral Tablet Hydrocodone-Acetaminophen 02/19/2020 12:00:00 AM EDT completed [facility] ([facility]) 25 mg 02/11/2020 12:00:00 AM EDT capsule,extended releas e 24hr 28 TAKE ONE CAPSULE BY MOUTH EVERY MORNING, MAXIMUM DAILY DOSE = 1 TAKE ONE CAPSULE BY MOUTH EVERY MORNING,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 ([facility]) Heart rate 112 /min 112 /min eCW1 ([facility]) Body mass index (BMI) [Ratio] 42.70 kg/m2 42.70 kg/m2 eCW1 ([facility]) Body height 65 [in_i] 65 [in_i] eCW1 ([facility]) Body weight 256.6 [lb_av] 256.6 [lb_av] eCW1 ([facility]) Body mass index (BMI) [Ratio] 43.3 kg/m2 43.3 k g/m2 MEDENT ([facility]) Body weight 260.50 [lb_av] 260.50 [lb_av] MEDEN T ([facility]) Body height 65 [in_i] 65 [in_i] MEDENT ([facility]) 5'5" Body temperature 97.0 [degF] 97.0 [degF] MED[facility] ([facility]) Body weight 117.085 kg 117.085 [facility] Body mass index (BMI) [Ratio] 42.9 kg/m2 42.9 k g/m2 MEDENT ([facility]) Body weight 258.12 [lb_av] 258.12 [lb_av] MEDEN T ([facility]) Body height 65 [in_i] 65 [in_i] MEDENT ([facility]) 5'5" Diastolic blood pressure 80 mm[Hg] 80 mm[Hg] [facility] ([facility]) Systolic blood pressure 140 mm[Hg] 140 mm[Hg] [facility] ([facility]) Body weight 116.292 kg 116.292 kg [facility] ([facility]) Body mass index (BMI) [Ratio] 42.7 kg/m2 42.7 k g/m2 [facility] ([facility]) Body weight 256.38 [lb_av] 256.38 [lb_av] MEDEN T ([facility]) Body height 65 [in_i] 65 [in_i] [facility] ([facility]) 5'5" Diastolic blood pressure 78 mm[Hg] 78 mm[Hg] [facility] ([facility]) Systolic blood pressure 134 mm[Hg] 134 mm[Hg] [facility] ([facility]) Body weight 111.189 kg 111.189 kg [facility] ([facility]) Body mass index (BMI) [Ratio] 40.8 kg/m2 40.8 k g/m2 [facility] ([facility]) Body weight 245.12 [lb_av] 245.12 [lb_av] MEDEN T ([facility]) Body height 65 [in_i] 65 [in_i] MEDENT ([facility]) 5'5" Diastolic blood pressure 98 mm[Hg] 98 mm[Hg] MEDENT ([facility], ) Systolic blood pressure 145 mm[Hg] 145 mm[Hg] M EDENT ([facility] ) Body weight 240.38 [lb_av] 240.38 [lb_av] MEDEN T ([facility] ) Body mass index (BMI) [Ratio] 40.7 kg/m2 40.7 k g/m2 MEDENT ([facility] ) Body weight 239.12 [lb_av] 239.12 [lb_av] MEDEN T ([facility] ) Body height 64.25 [in_i] 64.25 [in_i] MEDENT ([facility] ) 5'4.25" Body temperature 99.1 [degF] 99.1 [degF] MEDENT ([facility] ) Body mass index (BMI) [Ratio] 40.7 kg/m2 40.7 k g/m2 MED[facility] ([facility] ) Body weight 239.12 [lb_av] 239.12 [lb_av] MEDEN T ([facility] ) Body height 64.25 [in_i] 64.25 [in_i] MEDENT ([facility] ) 5'4.25" Body temperature 99.1 [degF] 99.1 [degF] MED[facility] ([facility] ) Diastolic blood pressure 82 mm[Hg] 82 mm[Hg] eCW1 ([facility]) Systolic blood pressure 120 mm[Hg] 120 mm[Hg] e CW1 ([facility]) Body temperature 97.9 [degF] 97.9 [degF] eCW1 ( [facility]) Respiratory rate 20 /min 20 /min eCW1 ([facility]) Heart rate 110 /min 110 /min eCW1 ([facility]) Body mass index (BMI) [Ratio] 39.53 kg/m2 39.53 kg/m2 eCW1 ([facility]) Body height 65 [in_i] 65 [in_i] eCW1 ([facility]) Body weight 237.6 [lb_av] 237.6 [lb_av] eCW1 ([facility]) Body weight 111.132 kg 111.132 kg [facility] ([facility]) Body mass index (BMI) [Ratio] 40.8 kg/m2 40.8 k g/m2 [facility] ([facility]) Body weight 245.00 [lb_av] 245.00 [lb_av] MEDEN T ([facility]) Body height 65 [in_i] 65 [in_i] [facility] 5'5" Body temperature 99.1 [degF] 99.1 [degF] [facility] ([facility]) Diastolic blood pressure 81 mm[Hg] 81 mm[Hg] [facility] ([facility]) Systolic blood pressure 120 mm[Hg] 120 mm[Hg] [facility] Body weight 109.771 kg 109.771 kg [facility] ([facility]) Body mass index (BMI) [Ratio] 40.3 kg/m2 40.3 k g/m2 [facility] ([facility]) Body weight 242.00 [lb_av] 242.00 [lb_av] MEDEN T ([facility]) Body height 65 [in_i] 65 [in_i] [facility] ([facility]) 5'5" Heart rate 112 /min 112 /min [facility] Diastolic blood pressure 85 mm[Hg] 85 mm[Hg] [facility] ([facility]) Systolic blood pressure 130 mm[Hg] 130 mm[Hg] M EDENT ([facility]) Diastolic blood pressure 74 mm[Hg] 74 mm[Hg] eCW1 ([facility]) Systolic blood pressure 118 mm[Hg] 118 mm[Hg] e CW1 ([facility]) Body temperature 97.5 [degF] 97.5 [degF] eCW1 ( [facility]) Respiratory rate 20 /min 20 /min eCW1 ([facility]) Heart rate 119 /min 119 /min eCW1 ([facility]) Body mass index (BMI) [Ratio] 40.43 kg/m2 40.43 kg/m2 eCW1 ([facility]) Body height 65 [in_us] 65 [in_us] eCW1 ([facility]) Body weight Measured 243 [lb_av] 243 [lb_av] eC W1 ([facility]) Body weight 111.302 kg 111.302 kg [facility] ([facility], ) Body mass index (BMI) [Ratio] 40.8 kg/m2 40.8 k g/m2 [facility] Body weight 245.38 [lb_av] 245.38 [lb_av] [facility] Body height 65 [in_i] 65 [in_i] [facility] ([facility]) 5'5" Diastolic blood pressure 91 mm[Hg] 91 mm[Hg] [facility] ([facility]) Systolic blood pressure 135 mm[Hg] 135 mm[Hg] M EDENT ([facility]) Diastolic blood pressure 74 mm[Hg] 74 mm[Hg] eCW1 ([facility]) Systolic blood pressure 128 mm[Hg] 128 mm[Hg] e CW1 ([facility]) Body temperature 97.6 [degF] 97.6 [degF] W1 ( [facility]) Respiratory rate 20 /min 20 /min eCW1 ([facility]) Heart rate 127 /min 127 /min eCW1 ([facility]) Body mass index (BMI) [Ratio] 41.20 kg/m2 41.20 kg/m2 eCW1 ([facility]) Body height 65 [in_us] 65 [in_us] eCW1 ([facility]) Body weight Measured 247.6 [lb_av] 247.6 [lb_av ] eCW1 ([facility]) Diastolic blood pressure 80 mm[Hg] 80 mm[Hg] eCW1 ([facility]) Systolic blood pressure 122 mm[Hg] 122 mm[Hg] e CW1 ([facility]) Body temperature 98 [degF] 98 [degF] eCW1 ([facility]) Respiratory rate 20 /min 20 /min eCW1 ([facility]) Heart rate 141 /min 141 /min eCW1 ([facility]) Body mass index (BMI) [Ratio] 40.77 kg/m2 40.77 kg/m2 eCW1 ([facility]) Body height 65 [in_us] 65 [in_us] eCW1 ([facility]) Body weight Measured 245 [lb_av] 245 [lb_av] eC W1 ([facility]) Diastolic blood pressure 91 mm[Hg] 91 mm[Hg] eCW1 ([facility]) Systolic blood pressure 122 mm[Hg] 122 mm[Hg] e CW1 ([facility]) Body temperature 99.3 [degF] 99.3 [degF] eCW1 ( [facility]) Respiratory rate 20 /min 20 /min eCW1 ([facility]) Heart rate 114 /min 114 /min eCW1 ([facility]) Body mass index (BMI) [Ratio] 40.67 kg/m2 40.67 kg/m2 eCW1 ([facility]) Body height 65 [in_us] 65 [in_us] eCW1 ([facility]) Body weight Measured 244.4 [lb_av] 244.4 [lb_av ] eCW1 ([facility]) Patient Treatment Plan of Care Planned Activity Planned Date Details Description Data Source (s) 24 HR Amphetamine aspartate 6.25 MG / Am phetamine Sulfate 6.25 MG / Dextroamphetamine saccharate 6.25 MG / Dextroamphetamine Sulfate 6.25 MG Extended Release Oral Capsule [Adderall] 05/02/2020 12:00:00 AM EST eCW1 ([facility]) 24 HR Amphetamine aspartate 6.25 MG / Am phetamine Sulfate 6.25 MG / Dextroamphetamine saccharate 6.25 MG / Dextroamphetamine Sulfate 6.25 MG Extended Release Oral Capsule [Adderall] 04/07/2020 12:00:00 AM EST eCW1 ([facility]) 24 HR Amphetamine aspartate 6.25 MG / Am phetamine Sulfate 6.25 MG / Dextroamphetamine saccharate 6.25 MG / Dextroamphetamine Sulfate 6.25 MG Extended Release Oral Capsule [Adderall] 04/07/2020 12:00:00 AM EST eCW1 ([facility]) 24 HR Amphetamine aspartate 6.25 MG / Am phetamine Sulfate 6.25 MG / Dextroamphetamine saccharate 6.25 MG / Dextroamphetamine Sulfate 6.25 MG Extended Release Oral Capsule [Adderall] 04/07/2020 12:00:00 AM EST eCW1 ([facility]) 24 HR Amphetamine aspartate 6.25 MG / Am phetamine Sulfate 6.25 MG / Dextroamphetamine saccharate 6.25 MG / Dextroamphetamine Sulfate 6.25 MG Extended Release Oral Capsule [Adderall] 03/07/2020 12:00:00 AM EST eCW1 ([facility]) 24 HR Amphetamine aspartate 6.25 MG / Am phetamine Sulfate 6.25 MG / Dextroamphetamine saccharate 6.25 MG / Dextroamphetamine Sulfate 6.25 MG Extended Release Oral Capsule [Adderall] 03/07/2020 12:00:00 AM EST eCW1 ([facility]) 24 HR Amphetamine aspartate 6.25 MG / Am phetamine Sulfate 6.25 MG / Dextroamphetamine saccharate 6.25 MG / Dextroamphetamine Sulfate 6.25 MG Extended Release Oral Capsule [Adderall] 03/07/2020 12:00:00 AM EST eCW1 ([facility]) 24 HR Amphetamine aspartate 6.25 MG / Am phetamine Sulfate 6.25 MG / Dextroamphetamine saccharate 6.25 MG / Dextroamphetamine Sulfate 6.25 MG Extended Release Oral Capsule [Adderall] 03/07/2020 12:00:00 AM EST eCW1 ([facility]) 24 HR Amphetamine aspartate 6.25 MG / Am phetamine Sulfate 6.25 MG / Dextroamphetamine saccharate 6.25 MG / Dextroamphetamine Sulfate 6.25 MG Extended Release Oral Capsule [Adderall] 02/10/2020 12:00:00 AM EDT eCW1 ([facility]) 24 HR Amphetamine aspartate 6.25 MG / Am phetamine Sulfate 6.25 MG / Dextroamphetamine saccharate 6.25 MG / Dextroamphetamine Sulfate 6.25 MG Extended Release Oral Capsule [Adderall] 10/08/2019 12:00:00 AM EDT eCW1 ([facility]) 24 HR Amphetamine aspartate 6.25 MG / Am phetamine Sulfate 6.25 MG / Dextroamphetamine saccharate 6.25 MG / Dextroamphetamine Sulfate 6.25 MG Extended Release Oral Capsule [Adderall] 10/08/2019 12:00:00 AM EDT eCW1 ([facility]) 24 HR Amphetamine aspartate 6.25 MG / Am phetamine Sulfate 6.25 MG / Dextroamphetamine saccharate 6.25 MG / Dextroamphetamine Sulfate 6.25 MG Extended Release Oral Capsule [Adderall] 09/05/2019 12:00:00 AM EDT eCW1 ([facility]) 24 HR Amphetamine aspartate 6.25 MG / Am phetamine Sulfate 6.25 MG / Dextroamphetamine saccharate 6.25 MG / Dextroamphetamine Sulfate 6.25 MG Extended Release Oral Capsule [Adderall] 08/03/2019 12:00:00 AM EDT eCW1 ([facility]) meloxicam 15 MG Oral Tablet 07/04/2019 12:00:00 AM EDT eCW1 ([facility]) Brace 07/02/2019 12:00:00 AM EDT e CW1 ([facility]) Diclofenac Sodium 0.01 MG/MG Topical Gel [Voltaren] 07/02/19 12:00:00 AM EDT eCW1 ([facility]) 24 HR Amphetamine aspartate 6.25 MG / Am phetamine Sulfate 6.25 MG / Dextroamphetamine saccharate 6.25 MG / Dextroamphetamine Sulfate 6.25 MG Extended Release Oral Capsule [Adderall] 06/29/2019 12:00:00 AM EST eCW1 ([facility]) Nicotine 4 MG Oral Lozenge 05/14/2019 12:00:00 AM EST eCW1 ([facility]) 24 HR Amphetamine aspartate 6.25 MG / Am phetamine Sulfate 6.25 MG / Dextroamphetamine saccharate 6.25 MG / Dextroamphetamine Sulfate 6.25 MG Extended Release Oral Capsule [Adderall] 04/22/2019 12:00:00 AM EST eCW1 ([facility])
--- OUTSIDE RECORDS SUMMARY | 2020-06-08 12:30 | CCD ---
Author Author [facility] Organization [facility] Address Unknown Phone Unavailable Care Team Providers Care Brickmason Supervisor Name Role Phone Aman Grant Unavailable PROBLEMS Type Condition ICD9-CM Code [id number] Code Onset Dates Condition S tatus SNOMED Code Notes Problem Body mass index (BMI) of 30.0 to 39.9 E66.9 Ac tive 039616470 Problem Other obesity due to excess calories E66.09 Act martha 694614625 Problem Attention-deficit hyperactivity disorder, combined type F90.2 Active 91272020 Problem Asthma exacerbation J45.901 Active 509909060 Problem Pure hyperglyceridemia E78.1 Active 604903843 Problem Chronic obstructive pulmonary disease, unspecified COPD ty pe J44.9 Active 58061836 Problem Cigarette nicotine dependence, uncomplicated F17.2 10 Active 32706662 Problem Moderate persistent asthma, uncomplicated J45.40 Active 236292453 Problem Sleep apnea, unspecified type G47.30 Active 73 504007 Problem Pure hypertriglyceridemia E78.1 Active 747173 009 Problem Lumbago with sciatica, right side M54.41 Active 525255803 Problem Allergic rhinitis due to animal hair and dander J3 0.81 Active 545840255406039 Problem Dysthymia F34.1 Active 38957130 Problem Other chronic pain G89.29 Active 20208512 Problem Daytime somnolence R40.0 Active 214873856338 Problem Insomnia, unspecified type G47.00 Active 99874 2000 Problem Oxygen desaturation during sleep G47.34 Active 356513441 Problem COPD exacerbation J44.1 Active 736975233 Problem Mild intermittent asthma, uncomplicated J45.20 Active 352740549 Problem Tobacco dependence F17.200 Active 64975370 Problem Generalized anxiety disorder F41.1 Active 218 23472 Problem Intervertebral disc disorders with radiculopathy , lumbar region M51.16 Active 513252699588887 Problem Herniated intervertebral disc of lumbar spine M51. 26 Active 234927390426865 Problem Obstructive sleep apnea syndrome G47.33 Active 47713860 Problem Gastroesophageal reflux disease, esophagitis pre sence not specified K21.9 Active 689779409 Problem L4-L5 disc bulge M51.26 Active 682092725 Problem Myalgia, other site M79.18 Active 63420995 Problem Intervertebral disc disorder with radiculopathy of lumbar region M51.16 Active 057940732178988 Problem History of asthma Z87.09 Active 102408616 Problem Lumbago with sciatica, left side M54.42 Active 565767280 ALLERGIES Allergen (clinical drug ingredient) Drug/Non Drug Allergy do cumented on EMR Reaction Allergy Type Onset Date Status oseltamivir Tamiflu(NDC Code:[address]-45) Nausea/Vomiting Drug Owen rgy Active nicotine Nicotine Polacrilex(NDC Code:[address]-75) thro at burning Drug Allergy Active ENCOUNTERS from 1985 to 2020-03-18 Encounter Location Date Provider Diagnosis [address] [address] Feb, Aman Grant IMMUNIZATIONS Vaccine Route Administration [...] Education Language: Question Answer Notes Languages spoken: [place] Hoahaoism: Question Answer Notes Hoahaoism 33 None No restoration beliefs that would impact health care. Sexual [...] (GENERAL) HISTORY Type Description Date Medical History Asthma Medical History attention deficit disorder with hyperact ivity Medical History hyperglyceridemia Medical History history of urinary incontinence post pre gnancy Medical History Nicotine dependence Medical History Herniated Lumbar Disc Surgical History ventral hernia repair ([facility]) 2 010 Surgical History appendectomy [...] days May, Next Appt Details Provider Name:Aman Cecilio Grant, 2020-03- 8 02:00:00 PM, [address] [place] [address], [id number], Insurance Providers Payer Name Payer Address Payer Phone Insured Name Patient Relati onship to Insured Coverage Start Date Coverage End Date [facility] [facility] [address] [facility] [id number] TAWNYA BELLO self
[2020-06-08] MEDS ORDERED: EXCETAB33 PO (12:38)
--- OUTSIDE RECORDS SUMMARY | 2020-06-08 12:56 | CCD ---
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 separately in addition to the code for primary procedure). 08/23/2019 12:00:00 AM EDT MEDEN T ([facility] ) 73208 Nerve conduction studies 7-8 studies NEW 201208/23/2019 12:00:00 AM EDT MEDENT ([facility] ) ARTHROCENTESIS ASPIR&/INJECTION MAJOR JT/BURSA 020 12:00:00 AM EDT MEDENT ([facility] ) RADEX SHOULDER COMPLETE MINIMUM 2 VIEWS 08/21/2019 12: 00:00 AM EDT MEDENT ([facility]) Chemical Cautery Granulation Tissue 07/03/2019 12:00:0 0 AM EDT MEDENT ([facility], ) INCISION & DRAINAGE PILONIDAL CYST SIMPLE 06/19/2019 1 2:00:00 AM EST MEDENT ([facility], ) Results ID Date Data Source [id number] 03/22/2020 08:30:00 AM EST MEDENT ([facility]) Name Value Range Interpretation Code Description Data Katelynn rce(s) Supporting Document(s) Coronavirus 2019 Nasopharygeal Laboratory test result MEDENT ([facility]) This nucleic acid amplification test was developed and its performance characteristics determined by [employer]. Nucleic acid amplification tests include PCR and [...] detected) result in this assay. Performed at: [facility] [address] [facility], [place], [place] [id number] Demurrage Worker: Linda Telles PhD, Phone: [phone] Not Detected ID Date Data Source [id number] 03/22/2020 08:30:00 AM EST [place] Name Value Range Interpretation Code Description Data Katelynn rce(s) Supporting Document(s) SARS coronavirus 2 RNA [facility] This lab was ordered by [facility] and reported by [facility]. ID Date Data Source [id number] 01/22/2020 03:54:00 PM EDT MEDENT ([facility]) Name Value Range Interpretation Code Description Data Katelynn rce(s) Supporting Document(s) Laboratory test finding (navigational concept) Laboratory test result MEDENT ([facility]) ID Date Data Source [id number] 11/05/2019 01:12:00 PM EDT MEDENT ([facility]) Name Value Range Interpretation Code Description Data Katelynn rce(s) Supporting Document(s) Laboratory test finding (navigational concept) Laboratory test result MED[facility] ([facility]) ID Date Data Source [id number] 11/02/2019 09:11:00 AM EDT MEDENT ([facility], ) Name Value Range Interpretation Code Description Data Katelynn rce(s) Supporting Document(s) Surgical pathology study Laboratory test result MEDENT ([facility]) FINAL DIAGNOSIS A-right lower back, lipoma, excision: [...] in aggregate. The specimen is grossly unremarkable. System Designer sections are submitted in one. B - Received in formalin labeled "pilonidal cyst" and consists of a fragment of tissue 1.5 x 1 x 0.5 cm. in aggregate. All in one. -OA 11/02/2019 - 1419 Signed LINK EDEN MD 11/05/2019 1021 ID Date Data Source [id number] 11/02/2019 05:00:00 AM EDT MEDENT ([facility], ) Name Value Range Interpretation Code Description Data Katelynn rce(s) Supporting Document(s) Respiratory Panel Laboratory test result [facility] ([facility], ) This respiratory PCR panel detects Influ [...] - SARS-CoV-2 (COVID19) ID Date Data Source [id number] 10/30/2019 09:30:00 AM EDT [facility] Name Value Range Interpretation Code Description Data Katelynn rce(s) Supporting Document(s) SARS coronavirus 2 RNA [facility] This lab was ordered by [facility] and reported by [facility]. Procedure Social History Code Duration Value Status Description Data Source(s ) Smoking 03/24/2020 12:00:00 AM EST Current Smoker completed Curre nt Smoker eCW1 ([facility]) Smoking 03/24/2020 12:00:00 AM EST Current Smoker completed Curre nt Smoker eCW1 ([facility]) Smoking 03/24/2020 12:00:00 AM EST Current Smoker completed Curre nt Smoker eCW1 ([facility]) Smoking 03/24/2020 12:00:00 AM EST Current Smoker completed Curre nt Smoker eCW1 ([facility]) Smoking 03/24/2020 12:00:00 AM EST Current Smoker completed Curre nt Smoker eCW1 ([facility]) Smoking 03/24/2020 12:00:00 AM EST Current Smoker completed Curre nt Smoker eCW1 ([facility]) Smoking 03/24/2020 12:00:00 AM EST Current Smoker completed Curre nt Smoker eCW1 ([facility]) Smoking 03/07/2020 12:00:00 AM EST Current Smoker completed Curre nt Smoker eCW1 ([facility]) Smoking 10/08/2019 12:00:00 AM EDT Current Smoker completed Curre nt Smoker eCW1 ([facility]) Smoking 10/08/2019 12:00:00 AM EDT Current Smoker completed Curre nt Smoker eCW1 ([facility]) Smoking 10/08/2019 12:00:00 AM EDT Current Smoker completed Curre nt Smoker eCW1 ([facility]) Vital Signs ID Date Data Source UNK Name Value Range Interpretation Code Description Data Source(s) Body temperature 96.6 [degF] 96.6 [degF] MEDENT ([facility]) Diastolic blood pressure 78 mm[Hg] 78 mm[Hg] eCW1 ([facility]) Systolic blood pressure 126 mm[Hg] 126 mm[Hg] e CW1 ([facility]) Body temperature 98.8 [degF] 98.8 [degF] eCW1 ( [facility]) Respiratory rate 18 /min 18 /min eCW1 ([facility]) Heart rate 112 /min 112 /min eCW1 ([facility]) Body mass index (BMI) [Ratio] 42.70 kg/m2 42.70 kg/m2 eCW1 ([facility]) Body height 65 [in_i] 65 [in_i] eCW1 ([facility]) Body weight 256.6 [lb_av] 256.6 [lb_av] eCW1 ([facility]) Body mass index (BMI) [Ratio] 43.3 kg/m2 43.3 k g/m2 MEDENT ([facility]) Body weight 260.50 [lb_av] 260.50 [lb_av] MEDEN T ([facility]) Body height 65 [in_i] 65 [in_i] MEDENT ([facility]) 5'5" Body temperature 97.0 [degF] 97.0 [degF] MED[facility] ([facility]) Body weight 117.085 kg 117.085 [facility] Body mass index (BMI) [Ratio] 42.9 kg/m2 42.9 k g/m2 MEDENT ([facility]) Body weight 258.12 [lb_av] 258.12 [lb_av] MEDEN T ([facility]) Body height 65 [in_i] 65 [in_i] MEDENT ([facility]) 5'5" Diastolic blood pressure 80 mm[Hg] 80 mm[Hg] [facility] ([facility]) Systolic blood pressure 140 mm[Hg] 140 mm[Hg] [facility] ([facility]) Body weight 116.292 kg 116.292 kg [facility] ([facility]) Body mass index (BMI) [Ratio] 42.7 kg/m2 42.7 k g/m2 [facility] ([facility]) Body weight 256.38 [lb_av] 256.38 [lb_av] MEDEN T ([facility]) Body height 65 [in_i] 65 [in_i] [facility] ([facility]) 5'5" Diastolic blood pressure 78 mm[Hg] 78 mm[Hg] [facility] ([facility]) Systolic blood pressure 134 mm[Hg] 134 mm[Hg] [facility] ([facility]) Body weight 111.189 kg 111.189 kg [facility] ([facility]) Body mass index (BMI) [Ratio] 40.8 kg/m2 40.8 k g/m2 [facility] ([facility]) Body weight 245.12 [lb_av] 245.12 [lb_av] MEDEN T ([facility]) Body height 65 [in_i] 65 [in_i] MEDENT ([facility]) 5'5" Diastolic blood pressure 98 mm[Hg] 98 mm[Hg] MEDENT ([facility], ) Systolic blood pressure 145 mm[Hg] 145 mm[Hg] M EDENT ([facility] ) Body weight 240.38 [lb_av] 240.38 [lb_av] MEDEN T ([facility] ) Body mass index (BMI) [Ratio] 40.7 kg/m2 40.7 k g/m2 MEDENT ([facility] ) Body weight 239.12 [lb_av] 239.12 [lb_av] MEDEN T ([facility] ) Body height 64.25 [in_i] 64.25 [in_i] MEDENT ([facility] ) 5'4.25" Body temperature 99.1 [degF] 99.1 [degF] MEDENT ([facility] ) Body mass index (BMI) [Ratio] 40.7 kg/m2 40.7 k g/m2 MEDENT ([facility] ) Body weight 239.12 [lb_av] 239.12 [lb_av] MEDEN T ([facility] ) Body height 64.25 [in_i] 64.25 [in_i] MEDENT ([facility] ) 5'4.25" Body temperature 99.1 [degF] 99.1 [degF] MEDENT ([facility] ) Diastolic blood pressure 82 mm[Hg] 82 mm[Hg] eCW1 ([facility]) Systolic blood pressure 120 mm[Hg] 120 mm[Hg] e CW1 ([facility]) Body temperature 97.9 [degF] 97.9 [degF] eCW1 ( [facility]) Respiratory rate 20 /min 20 /min eCW1 ([facility]) Heart rate 110 /min 110 /min eCW1 ([facility]) Body mass index (BMI) [Ratio] 39.53 kg/m2 39.53 kg/m2 eCW1 ([facility]) Body height 65 [in_i] 65 [in_i] eCW1 ([facility]) Body weight 237.6 [lb_av] 237.6 [lb_av] eCW1 ([facility]) Body weight 111.132 kg 111.132 kg [facility] ([facility]) Body mass index (BMI) [Ratio] 40.8 kg/m2 40.8 k g/m2 [facility] ([facility]) Body weight 245.00 [lb_av] 245.00 [lb_av] MEDEN T ([facility]) Body height 65 [in_i] 65 [in_i] [facility] 5'5" Body temperature 99.1 [degF] 99.1 [degF] [facility] ([facility]) Diastolic blood pressure 81 mm[Hg] 81 mm[Hg] [facility] ([facility]) Systolic blood pressure 120 mm[Hg] 120 mm[Hg] [facility] Body weight 109.771 kg 109.771 kg [facility] ([facility]) Body mass index (BMI) [Ratio] 40.3 kg/m2 40.3 k g/m2 [facility] ([facility]) Body weight 242.00 [lb_av] 242.00 [lb_av] MEDEN T ([facility]) Body height 65 [in_i] 65 [in_i] [facility] ([facility]) 5'5" Heart rate 112 /min 112 /min [facility] Diastolic blood pressure 85 mm[Hg] 85 mm[Hg] [facility] ([facility]) Systolic blood pressure 130 mm[Hg] 130 mm[Hg] M EDENT ([facility]) Diastolic blood pressure 74 mm[Hg] 74 mm[Hg] eCW1 ([facility]) Systolic blood pressure 118 mm[Hg] 118 mm[Hg] e CW1 ([facility]) Body temperature 97.5 [degF] 97.5 [degF] eCW1 ( [facility]) Respiratory rate 20 /min 20 /min eCW1 ([facility]) Heart rate 119 /min 119 /min eCW1 ([facility]) Body mass index (BMI) [Ratio] 40.43 kg/m2 40.43 kg/m2 eCW1 ([facility]) Body height 65 [in_us] 65 [in_us] eCW1 ([facility]) Body weight Measured 243 [lb_av] 243 [lb_av] eC W1 ([facility]) Body weight 111.302 kg 111.302 kg [facility] ([facility], ) Body mass index (BMI) [Ratio] 40.8 kg/m2 40.8 k g/m2 [facility] Body weight 245.38 [lb_av] 245.38 [lb_av] [facility] Body height 65 [in_i] 65 [in_i] [facility] ([facility]) 5'5" Diastolic blood pressure 91 mm[Hg] 91 mm[Hg] [facility] ([facility]) Systolic blood pressure 135 mm[Hg] 135 mm[Hg] M EDENT ([facility]) Diastolic blood pressure 74 mm[Hg] 74 mm[Hg] eCW1 ([facility]) Systolic blood pressure 128 mm[Hg] 128 mm[Hg] e CW1 ([facility]) Body temperature 97.6 [degF] 97.6 [degF] W1 ( [facility]) Respiratory rate 20 /min 20 /min eCW1 ([facility]) Heart rate 127 /min 127 /min eCW1 ([facility]) Body mass index (BMI) [Ratio] 41.20 kg/m2 41.20 kg/m2 eCW1 ([facility]) Body height 65 [in_us] 65 [in_us] eCW1 ([facility]) Body weight Measured 247.6 [lb_av] 247.6 [lb_av ] eCW1 ([facility]) Diastolic blood pressure 80 mm[Hg] 80 mm[Hg] eCW1 ([facility]) Systolic blood pressure 122 mm[Hg] 122 mm[Hg] e CW1 ([facility]) Body temperature 98 [degF] 98 [degF] eCW1 ([facility]) Respiratory rate 20 /min 20 /min eCW1 ([facility]) Heart rate 141 /min 141 /min eCW1 ([facility]) Body mass index (BMI) [Ratio] 40.77 kg/m2 40.77 kg/m2 eCW1 ([facility]) Body height 65 [in_us] 65 [in_us] eCW1 ([facility]) Body weight Measured 245 [lb_av] 245 [lb_av] eC W1 ([facility]) Diastolic blood pressure 91 mm[Hg] 91 mm[Hg] eCW1 ([facility]) Systolic blood pressure 122 mm[Hg] 122 mm[Hg] e CW1 ([facility]) Body temperature 99.3 [degF] 99.3 [degF] eCW1 ( [facility]) Respiratory rate 20 /min 20 /min eCW1 ([facility]) Heart rate 114 /min 114 /min eCW1 ([facility]) Body mass index (BMI) [Ratio] 40.67 kg/m2 40.67 kg/m2 eCW1 ([facility]) Body height 65 [in_us] 65 [in_us] eCW1 ([facility]) Body weight Measured 244.4 [lb_av] 244.4 [lb_av ] eCW1 ([facility]) Patient Treatment Plan of Care Planned Activity Planned Date Details Description Data Source (s) 24 HR Amphetamine aspartate 6.25 MG / Am phetamine Sulfate 6.25 MG / Dextroamphetamine saccharate 6.25 MG / Dextroamphetamine Sulfate 6.25 MG Extended Release Oral Capsule [Adderall] 05/02/2020 12:00:00 AM EST eCW1 ([facility]) 24 HR Amphetamine aspartate 6.25 MG / Am phetamine Sulfate 6.25 MG / Dextroamphetamine saccharate 6.25 MG / Dextroamphetamine Sulfate 6.25 MG Extended Release Oral Capsule [Adderall] 04/07/2020 12:00:00 AM EST eCW1 ([facility]) 24 HR Amphetamine aspartate 6.25 MG / Am phetamine Sulfate 6.25 MG / Dextroamphetamine saccharate 6.25 MG / Dextroamphetamine Sulfate 6.25 MG Extended Release Oral Capsule [Adderall] 04/07/2020 12:00:00 AM EST eCW1 ([facility]) 24 HR Amphetamine aspartate 6.25 MG / Am phetamine Sulfate 6.25 MG / Dextroamphetamine saccharate 6.25 MG / Dextroamphetamine Sulfate 6.25 MG Extended Release Oral Capsule [Adderall] 04/07/2020 12:00:00 AM EST eCW1 ([facility]) 24 HR Amphetamine aspartate 6.25 MG / Am phetamine Sulfate 6.25 MG / Dextroamphetamine saccharate 6.25 MG / Dextroamphetamine Sulfate 6.25 MG Extended Release Oral Capsule [Adderall] 03/07/2020 12:00:00 AM EST eCW1 ([facility]) 24 HR Amphetamine aspartate 6.25 MG / Am phetamine Sulfate 6.25 MG / Dextroamphetamine saccharate 6.25 MG / Dextroamphetamine Sulfate 6.25 MG Extended Release Oral Capsule [Adderall] 03/07/2020 12:00:00 AM EST eCW1 ([facility]) 24 HR Amphetamine aspartate 6.25 MG / Am phetamine Sulfate 6.25 MG / Dextroamphetamine saccharate 6.25 MG / Dextroamphetamine Sulfate 6.25 MG Extended Release Oral Capsule [Adderall] 03/07/2020 12:00:00 AM EST eCW1 ([facility]) 24 HR Amphetamine aspartate 6.25 MG / Am phetamine Sulfate 6.25 MG / Dextroamphetamine saccharate 6.25 MG / Dextroamphetamine Sulfate 6.25 MG Extended Release Oral Capsule [Adderall] 03/07/2020 12:00:00 AM EST eCW1 ([facility]) 24 HR Amphetamine aspartate 6.25 MG / Am phetamine Sulfate 6.25 MG / Dextroamphetamine saccharate 6.25 MG / Dextroamphetamine Sulfate 6.25 MG Extended Release Oral Capsule [Adderall] 02/10/2020 12:00:00 AM EDT eCW1 ([facility]) 24 HR Amphetamine aspartate 6.25 MG / Am phetamine Sulfate 6.25 MG / Dextroamphetamine saccharate 6.25 MG / Dextroamphetamine Sulfate 6.25 MG Extended Release Oral Capsule [Adderall] 10/08/2019 12:00:00 AM EDT eCW1 ([facility]) 24 HR Amphetamine aspartate 6.25 MG / Am phetamine Sulfate 6.25 MG / Dextroamphetamine saccharate 6.25 MG / Dextroamphetamine Sulfate 6.25 MG Extended Release Oral Capsule [Adderall] 10/08/2019 12:00:00 AM EDT eCW1 ([facility]) 24 HR Amphetamine aspartate 6.25 MG / Am phetamine Sulfate 6.25 MG / Dextroamphetamine saccharate 6.25 MG / Dextroamphetamine Sulfate 6.25 MG Extended Release Oral Capsule [Adderall] 09/05/2019 12:00:00 AM EDT eCW1 ([facility]) 24 HR Amphetamine aspartate 6.25 MG / Am phetamine Sulfate 6.25 MG / Dextroamphetamine saccharate 6.25 MG / Dextroamphetamine Sulfate 6.25 MG Extended Release Oral Capsule [Adderall] 08/03/2019 12:00:00 AM EDT eCW1 ([facility]) meloxicam 15 MG Oral Tablet 07/04/2019 12:00:00 AM EDT eCW1 ([facility]) Brace 07/02/2019 12:00:00 AM EDT e CW1 ([facility]) Diclofenac Sodium 0.01 MG/MG Topical Gel [Voltaren] 07/02/19 12:00:00 AM EDT eCW1 ([facility]) 24 HR Amphetamine aspartate 6.25 MG / Am phetamine Sulfate 6.25 MG / Dextroamphetamine saccharate 6.25 MG / Dextroamphetamine Sulfate 6.25 MG Extended Release Oral Capsule [Adderall] 06/29/2019 12:00:00 AM EST eCW1 ([facility]) Nicotine 4 MG Oral Lozenge 05/14/2019 12:00:00 AM EST eCW1 ([facility]) 24 HR Amphetamine aspartate 6.25 MG / Am phetamine Sulfate 6.25 MG / Dextroamphetamine saccharate 6.25 MG / Dextroamphetamine Sulfate 6.25 MG Extended Release Oral Capsule [Adderall] 04/22/2019 12:00:00 AM EST eCW1 ([facility])
[2020-06-08] MEDS ORDERED: diphenhydrAMINE 50MG/ML VIAL (J1200) IV ONE (13:30)
[2020-06-08] MEDS ORDERED: NS 1,000 ML IV ONE (13:30)
[2020-06-08] MEDS ORDERED: ACETAMINOPHEN 500 MG TAB PO ONE (13:30)
[2020-06-08] MEDS ORDERED: METOCLOPRAMIDE INJ 10MG/2ML VIAL (J2765 PER 1) IV ONE (13:30)
[2020-06-08 13:39] LABS: BASO # 0.1 10^3/uL (0.0-0.2); BASO % 0.9 % (0.0-1.0); EOS # 0.6 10^3/uL (0.0-0.5); EOS % 5.1 % (0.0-3.0); HEMATOCRIT 43.4 % (36.0-47.0); HEMOGLOBIN 13.9 g/dl (12.0-15.5); LYMPH # 2.9 10^3/uL (1.5-5.0); LYMPH % 24.7 % (24.0-44.0); MEAN CORPUSCULAR HEMOGLOBIN 27.6 pg (27.0-33.0); MEAN CORPUSCULAR VOLUME 86.1 fl (80.0-96.0); MONO # 0.6 10^3/uL (0.0-0.8); MONO % 5.2 % (2.0-8.0); NEUTROPHILS # 7.6 10^3/uL (1.5-8.5); NEUTROPHILS % 63.7 % (36.0-66.0); PLATELET COUNT, AUTOMATED 401 10^3/uL (150-450); RED BLOOD COUNT 5.04 10^6/uL (4.00-5.40); WHITE BLOOD COUNT 11.9 10^3/uL (4.0-10.0)
[2020-06-08 14:52] VITALS: BP 148/88
--- NOTE | 2020-06-08 20:51 | ECGEPIP ---
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
== END 2020-06-08 14:59 | disposition home or self-care (01) ==
LOC: M ED 12:22
DX: R51.9 Headache, unspecified (principal); Z79.899 Other long term (current) drug therapy; Z79.82 Long term (current) use of aspirin; Z88.8 Allergy status to other drugs, medicaments and biological substances; J30.89 Other allergic rhinitis; F17.210 Nicotine dependence, cigarettes, uncomplicated
CPT/HCPCS: 36415; 80047; 84702; 85025; 93005; 96361; 96374; 96375; 99284; J1200; J2765

== ENCOUNTER 2020-06-18 13:45 | Outpatient (RCR) | payer OTHER ==
[~2020-06-18 13:45] MED LIST changes: +EXCETAB33 PO
== END 2020-06-22 ==
LOC: M PT 13:45
PROVIDERS: ATTEND Orthopaedic Surgery
DX: Z47.89 Encounter for other orthopedic aftercare (principal); Z98.890 Other specified postprocedural states

== ENCOUNTER 2020-07-04 11:20 | Outpatient (RCR) | payer OTHER | END 2020-07-23 | LOC: M PT 11:20 | PROVIDERS: ATTEND Orthopaedic Surgery | DX: Z98.890 Other specified postprocedural states (principal); M25.511 Pain in right shoulder ==

== ENCOUNTER 2020-08-11 12:36 | Emergency (ER) | payer OTHER ==
[~2020-08-11] VITALS: Ht 162.6 cm; Wt 117.7 kg
[2020-08-11 12:36] VITALS: BP 143/95
--- NOTE | 2020-08-11 13:05 | REP ---
INDICATION: trauma, decreased rom COMPARISON: None. TECHNIQUE: AP, lateral, bilateral oblique views. FINDINGS: Soft tissue swelling primarily over the lateral malleolus consistent with inversion injury. No acute fracture or dislocation. Ankle mortise intact. Lateral view demonstrates small calcaneal heel spur. IMPRESSION: Soft tissue swelling. No acute fracture or dislocation. <Electronically signed by Stephon Flood > 08/11/20 [id number]
[2020-08-11] MEDS ORDERED: KETOROLAC TROMETHAMINE 10 MG TAB PO ONE (15:05)
== END 2020-08-11 15:53 | disposition home or self-care (01) ==
LOC: M ED 12:36
DX: S93.412A Sprain of calcaneofibular ligament of left ankle, initial encounter (principal); X50.9XXA Other and unspecified overexertion or strenuous movements or postures, initial encounter; Y92.410 Unspecified street and highway as the place of occurrence of the external cause; J44.9 Chronic obstructive pulmonary disease, unspecified; K21.9 Gastro-esophageal reflux disease without esophagitis; Z79.899 Other long term (current) drug therapy; Z79.82 Long term (current) use of aspirin; J30.89 Other allergic rhinitis; Z88.8 Allergy status to other drugs, medicaments and biological substances; F17.210 Nicotine dependence, cigarettes, uncomplicated

== ENCOUNTER → 2020-09-25 | Outpatient (REF) | payer OTHER ==
[2020-09-25 13:13] LABS: HEMATOCRIT 42.3 % (36.0-47.0); HEMOGLOBIN 13.5 g/dl (12.0-15.5); MEAN CORPUSCULAR HEMOGLOBIN 27.8 pg (27.0-33.0); MEAN CORPUSCULAR HGB CONC 31.9 g/dl (32.0-36.5); MEAN CORPUSCULAR VOLUME 87.2 fl (80.0-96.0); PLATELET COUNT, AUTOMATED 345 10^3/uL (150-450); RED BLOOD COUNT 4.85 10^6/uL (4.00-5.40); WHITE BLOOD COUNT 11.5 10^3/uL (4.0-10.0)
[2020-09-25 13:53] LABS: ALBUMIN 3.5 GM/DL (3.2-5.2); ALT/SGPT 22 U/L (12-78); BILIRUBIN,TOTAL 0.2 MG/DL (0.2-1.0); BLOOD UREA NITROGEN 13 MG/DL (7-18); CALCIUM LEVEL 9.1 MG/DL (8.5-10.1); CARBON DIOXIDE LEVEL 30 MEQ/L (21-32); CHLORIDE LEVEL 102 MEQ/L (98-107); CHOLESTEROL LEVEL 214 MG/DL (<200); CHOLESTEROL RISK RATIO 6.687 (<5); CREATININE FOR GFR 0.62 MG/DL (0.55-1.30); GLOMERULAR FILTRATION RATE > 60.0 (>60); GLUCOSE, FASTING 99 MG/DL (70-100); HDL CHOLESTEROL 32 MG/DL (>40); NON-HDL-C 182 MG/DL; POTASSIUM SERUM 4.4 MEQ/L (3.5-5.1); SODIUM LEVEL 137 MEQ/L (136-145); TOTAL PROTEIN 7.2 GM/DL (6.4-8.2); TRIGLYCERIDES LEVEL 488 MG/DL (<150)
[2020-09-25 14:25] LABS: HEMOGLOBIN A1c 6.1 %
== END ==
LOC: M SFHCPLAZ 10:33
PROVIDERS: ATTEND Family Medicine
DX: G47.33 Obstructive sleep apnea (adult) (pediatric) (principal); F90.2 Attention-deficit hyperactivity disorder, combined type; F41.1 Generalized anxiety disorder; E78.1 Pure hyperglyceridemia; Z13.1 Encounter for screening for diabetes mellitus

== ENCOUNTER 2021-07-26 14:05 | Emergency (ER) | payer OTHER ==
[~2021-07-26] VITALS: Ht 162.6 cm; Wt 119.1 kg
[2021-07-26] MEDS ORDERED: methylPREDNISolone 125MG 2ML VIAL IV ONE (15:25)
[2021-07-26 15:54] LABS: BASO # 0.1 10^3/uL (0.0-0.2); BASO % 0.7 % (0.0-1.0); EOS # 0.3 10^3/uL (0.0-0.5); EOS % 3.1 % (0.0-3.0); HEMATOCRIT 44.4 % (36.0-47.0); HEMOGLOBIN 14.8 g/dl (12.0-15.5); LYMPH # 1.7 10^3/uL (1.5-5.0); LYMPH % 15.4 % (24.0-44.0); MEAN CORPUSCULAR HEMOGLOBIN 28.5 pg (27.0-33.0); MEAN CORPUSCULAR HGB CONC 33.3 g/dl (32.0-36.5); MEAN CORPUSCULAR VOLUME 85.5 fl (80.0-96.0); MONO % 9.7 % (2.0-8.0); NEUTROPHILS # 7.6 10^3/uL (1.5-8.5); NEUTROPHILS % 70.8 % (36.0-66.0); PLATELET COUNT, AUTOMATED 347 10^3/uL (150-450); RED BLOOD COUNT 5.19 10^6/uL (4.00-5.40); WHITE BLOOD COUNT 10.7 10^3/uL (4.0-10.0)
[2021-07-26] MEDS: COMBIVENT RESPIMAT 100-20MCG INHALER 4GM INH SCH ×3 (16:00→16:29)
[2021-07-26 16:23] LABS: ALBUMIN 3.4 GM/DL (3.2-5.2); ALT/SGPT 28 U/L (12-78); BILIRUBIN,DIRECT < 0.1 MG/DL (0.0-0.2); BILIRUBIN,TOTAL 0.3 MG/DL (0.2-1.0); BLOOD UREA NITROGEN 12 MG/DL (7-18); CALCIUM LEVEL 8.7 MG/DL (8.5-10.1); CARBON DIOXIDE LEVEL 28 MEQ/L (21-32); CHLORIDE LEVEL 104 MEQ/L (98-107); CREATININE FOR GFR 0.61 MG/DL (0.55-1.30); GLOMERULAR FILTRATION RATE > 60.0 (>60); GLUCOSE, FASTING 114 MG/DL (70-100); SODIUM LEVEL 137 MEQ/L (136-145); TOTAL PROTEIN 7.6 GM/DL (6.4-8.2)
[2021-07-26] MEDS ORDERED: PRED20TA PO (17:53)
[2021-07-26] MEDS ORDERED: ALBU83IN NEB (17:53)
[2021-07-26 18:12] VITALS: BP 136/92
== END 2021-07-26 18:13 | disposition home or self-care (01) ==
LOC: M ED 14:05
DX: J20.8 Acute bronchitis due to other specified organisms (principal); U07.1 COVID-19; F90.9 Attention-deficit hyperactivity disorder, unspecified type; K21.9 Gastro-esophageal reflux disease without esophagitis; Z85.41 Personal history of malignant neoplasm of cervix uteri; Z88.8 Allergy status to other drugs, medicaments and biological substances; E66.9 Obesity, unspecified; Z79.899 Other long term (current) drug therapy; F17.210 Nicotine dependence, cigarettes, uncomplicated; F12.20 Cannabis dependence, uncomplicated
CPT/HCPCS: 71046; 80048; 80076; 84702; 85025; 87798; 94640; 96374; 99284; J2930

== ENCOUNTER → 2021-09-16 | Outpatient (CLI) | payer OTHER ==
[~2021-09-16] MED LIST changes: +ALBU83IN NEB; +EXCETAB32 PO; -EXCETAB33 PO
== END ==
LOC: M RAD 16:08
PROVIDERS: ATTEND Orthopaedic Surgery
DX: M25.511 Pain in right shoulder (principal)

== ENCOUNTER → 2021-11-11 | Outpatient (REF) | payer OTHER ==
[~2021-11-11] MED LIST changes: +ALBU2.5V10 NEB; -ALBU83IN NEB
== END ==
LOC: M LAB REF 21:13
PROVIDERS: ATTEND Physician Assistant
DX: R11.0 Nausea (principal); R50.9 Fever, unspecified

== ENCOUNTER 2021-12-09 07:34 | Emergency (ER) | payer OTHER, MEDICAID ==
[~2021-12-09] VITALS: Ht 162.6 cm; Wt 109.5 kg
[2021-12-09] MEDS ORDERED: NICO1DIS12 (07:48)
[2021-12-09] MEDS ORDERED: ESTA0.25 (07:48)
[2021-12-09] MEDS ORDERED: BENZONATATE 100MG CAPSULE PO ONE (08:30)
[2021-12-09] MEDS ORDERED: methylPREDNISolone 125MG 2ML VIAL IV ONE (08:30)
[2021-12-09] MEDS ORDERED: LEVALBUTEROL HFA 45MCG/ACT 15 GM INHALER INH STA (08:30)
[2021-12-09] MEDS ORDERED: guaiFENesin ER 600 MG TAB PO SCH (09:00)
[2021-12-09 09:14] LABS: VENOUS BASE EXCESS -1.3 (-2.0-2.0); VENOUS HCO3 23.8 MEQ/L (23.0-27.0); VENOUS O2 SATURATION 97.3 % (60.0-80.0); VENOUS PARTIAL PRESSURE CO2 41.6 mmHg (38.0-50.0); VENOUS PARTIAL PRESSURE O2 98.8 mmHg (30.0-50.0); VENOUS PH 7.376 UNITS (7.330-7.430); VENOUS STANDARD HCO3 23.4 MEQ/L; VENOUS TOTAL CO2 25.1 MEQ/L (24.0-28.0)
[2021-12-09 09:33] LABS: BASO # 0.1 10^3/uL (0.0-0.2); BASO % 0.6 % (0.0-1.0); EOS # 0.5 10^3/uL (0.0-0.5); EOS % 4.5 % (0.0-3.0); HEMATOCRIT 42.2 % (36.0-47.0); HEMOGLOBIN 13.7 g/dl (12.0-15.5); LYMPH # 1.8 10^3/uL (1.5-5.0); MEAN CORPUSCULAR HEMOGLOBIN 27.8 pg (27.0-33.0); MEAN CORPUSCULAR HGB CONC 32.5 g/dl (32.0-36.5); MEAN CORPUSCULAR VOLUME 85.6 fl (80.0-96.0); MONO # 0.7 10^3/uL (0.0-0.8); MONO % 6.3 % (2.0-8.0); NEUTROPHILS # 8.7 10^3/uL (1.5-8.5); NEUTROPHILS % 73.2 % (36.0-66.0); PLATELET COUNT, AUTOMATED 307 10^3/uL (150-450); RED BLOOD COUNT 4.93 10^6/uL (4.00-5.40); WHITE BLOOD COUNT 11.8 10^3/uL (4.0-10.0)
[2021-12-09] MEDS ORDERED: BENZ200C70 PO (10:16)
[2021-12-09] MEDS ORDERED: MUCI1TAB18 PO (10:16)
[2021-12-09 10:51] VITALS: BP 156/100
[2021-12-09] MEDS ORDERED: LISI2.5T9 PO (10:58)
== END 2021-12-09 11:10 | disposition home or self-care (01) ==
LOC: M ED 07:34
DX: J06.9 Acute upper respiratory infection, unspecified (principal); B34.1 Enterovirus infection, unspecified; J44.9 Chronic obstructive pulmonary disease, unspecified; K21.9 Gastro-esophageal reflux disease without esophagitis; Z79.899 Other long term (current) drug therapy; Z79.82 Long term (current) use of aspirin; Z79.3 Long term (current) use of hormonal contraceptives; F17.200 Nicotine dependence, unspecified, uncomplicated
CPT/HCPCS: 36415; 71045; 80047; 82803; 85025; 87486; 87581; 87633; 87798; 94640; 96374; 99284; J2930

== ENCOUNTER 2021-12-31 08:22 | Emergency (ER) | payer OTHER, MEDICAID ==
[~2021-12-31] VITALS: Ht 162.6 cm; Wt 113.2 kg
[~2021-12-31 08:22] MED LIST changes: +BENZ200C70 PO; +ESTA0.25; +LISI2.5T9 PO; +MUCI1TAB18 PO; +NICO1DIS12
[2021-12-31] MEDS ORDERED: ACETAMINOPHEN 500 MG TAB PO ONE (10:25)
[2021-12-31] MEDS ORDERED: GI COCKTAIL 50ML BTL(HYOSCYAMINE/MAALOX/LIDOCAINE VISCOUS)(1:3:1) PO ONE (10:25)
[2021-12-31 10:57] LABS: BASO # 0.1 10^3/uL (0.0-0.2); BASO % 0.6 % (0.0-1.0); EOS # 0.5 10^3/uL (0.0-0.5); EOS % 4.1 % (0.0-3.0); HEMATOCRIT 44.4 % (36.0-47.0); HEMOGLOBIN 14.3 g/dl (12.0-15.5); LYMPH # 2.6 10^3/uL (1.5-5.0); MEAN CORPUSCULAR HEMOGLOBIN 28.5 pg (27.0-33.0); MEAN CORPUSCULAR HGB CONC 32.2 g/dl (32.0-36.5); MEAN CORPUSCULAR VOLUME 88.4 fl (80.0-96.0); MONO # 0.8 10^3/uL (0.0-0.8); NEUTROPHILS # 8.9 10^3/uL (1.5-8.5); NEUTROPHILS % 68.8 % (36.0-66.0); PLATELET COUNT, AUTOMATED 381 10^3/uL (150-450); RED BLOOD COUNT 5.02 10^6/uL (4.00-5.40); WHITE BLOOD COUNT 12.9 10^3/uL (4.0-10.0)
[2021-12-31 12:03] LABS: BLOOD UREA NITROGEN 11 MG/DL (7-18); CALCIUM LEVEL 9.1 MG/DL (8.5-10.1); CARBON DIOXIDE LEVEL 29 MEQ/L (21-32); CHLORIDE LEVEL 101 MEQ/L (98-107); CREATININE FOR GFR 0.57 MG/DL (0.55-1.30); GLOMERULAR FILTRATION RATE > 60.0 (>60); GLUCOSE, FASTING 100 MG/DL (70-100); HCG, SERUM QUANTITATIVE 4018 MIU/ML; POTASSIUM SERUM 4.7 MEQ/L (3.5-5.1); SODIUM LEVEL 133 MEQ/L (136-145)
[2021-12-31 12:55] LABS: APPEARANCE, URINE MANUAL HAZY (CLEAR); BILIRUBIN, URINE MANUAL NEGATIVE (NEGATIVE); BLOOD URINE MANUAL NEGATIVE (NEGATIVE); COLOR, URINE MANUAL YELLOW (YELLOW); GLUCOSE, URINE (UA) MANUAL NEGATIVE (NEGATIVE); KETONE, URINE MANUAL NEGATIVE (NEGATIVE); LEUKOCYTE ESTERASE, URINE MAN NEGATIVE (NEGATIVE); NITRITE, URINE MANUAL NEGATIVE (NEGATIVE); PROTEIN, URINE MANUAL NEGATIVE (NEGATIVE); SPECIFIC GRAVITY,URINE MANUAL 1.015 (1.002-1.035); UROBILINOGEN, URINE MANUAL NORMAL (NORMAL)
[2021-12-31 13:12] LABS: BACTERIA, URINE LARGE AMOUNT; RBC, URINE 0-1 /hpf (0-3); SQUAMOUS EPITHELIAL CELL URINE LARGE AMOUNT /hpf (SMALL AMT)
[2021-12-31 13:13] LABS: HYALINE CAST, URINE NONE SEEN /lpf (0-1); MUCUS, URINE MOD AMOUNT (NEGATIVE)
[2021-12-31 13:24] VITALS: BP 124/85
== END 2021-12-31 13:40 | disposition home or self-care (01) ==
LOC: M ED 08:22
DX: R10.2 Pelvic and perineal pain (principal)

== ENCOUNTER → 2022-01-03 | Outpatient (CLI) | payer OTHER, MEDICAID | LOC: M LAB 09:31 | PROVIDERS: ATTEND Physician Assistant | DX: O26.899 Other specified pregnancy related conditions, unspecified trimester (principal); R10.2 Pelvic and perineal pain ==

== ENCOUNTER → 2022-01-06 | Outpatient (CLI) | payer OTHER, MEDICAID | LOC: M LAB 10:25 | PROVIDERS: ATTEND Student in an Organized Health Care Education/Training Program | DX: Z32.01 Encounter for pregnancy test, result positive (principal) ==

== ENCOUNTER 2022-01-12 16:18 | Emergency (ER) | payer MEDICAID, OTHER ==
[~2022-01-12] VITALS: Ht 162.6 cm; Wt 112.7 kg
[2022-01-12 16:31] VITALS: BP 126/72
[2022-01-12] MEDS ORDERED: [UNRECOGNIZED DRUG - OTHER] (16:39)
[2022-01-12] MEDS ORDERED: NS 1,000 ML IV ONE (17:25)
[2022-01-12] MEDS ORDERED: FAMOTIDINE 20 MG TAB PO ONE (17:30)
[2022-01-12 18:14] LABS: BASO # 0.1 10^3/uL (0.0-0.2); BASO % 0.5 % (0.0-1.0); EOS # 0.6 10^3/uL (0.0-0.5); EOS % 4.5 % (0.0-3.0); HEMATOCRIT 41.2 % (36.0-47.0); HEMOGLOBIN 13.7 g/dl (12.0-15.5); LYMPH # 2.7 10^3/uL (1.5-5.0); LYMPH % 22.2 % (24.0-44.0); MEAN CORPUSCULAR HEMOGLOBIN 28.3 pg (27.0-33.0); MEAN CORPUSCULAR HGB CONC 33.3 g/dl (32.0-36.5); MEAN CORPUSCULAR VOLUME 85.1 fl (80.0-96.0); MONO # 0.7 10^3/uL (0.0-0.8); NEUTROPHILS # 8.1 10^3/uL (1.5-8.5); NEUTROPHILS % 66.2 % (36.0-66.0); PLATELET COUNT, AUTOMATED 313 10^3/uL (150-450); RED BLOOD COUNT 4.84 10^6/uL (4.00-5.40); WHITE BLOOD COUNT 12.3 10^3/uL (4.0-10.0)
[2022-01-12 19:06] LABS: CK-MB VALUE MASS 1.8 NG/ML (<3.6); MB/CK RELATIVE INDEX 1.89 (< OR =4)
[2022-01-12 19:28] LABS: ALBUMIN 3.2 GM/DL (3.2-5.2); ALT/SGPT 21 U/L (12-78); AMYLASE 58 U/L (25-115); BILIRUBIN,DIRECT < 0.1 MG/DL (0.0-0.2); BILIRUBIN,TOTAL 0.1 MG/DL (0.2-1.0); BLOOD UREA NITROGEN 9 MG/DL (7-18); CALCIUM LEVEL 9.1 MG/DL (8.5-10.1); CARBON DIOXIDE LEVEL 25 MEQ/L (21-32); CHLORIDE LEVEL 103 MEQ/L (98-107); CREATININE FOR GFR 0.56 MG/DL (0.55-1.30); GLOMERULAR FILTRATION RATE > 60.0 (>60); GLUCOSE, FASTING 139 MG/DL (70-100); POTASSIUM SERUM 3.8 MEQ/L (3.5-5.1); SODIUM LEVEL 134 MEQ/L (136-145); TOTAL PROTEIN 6.7 GM/DL (6.4-8.2)
[2022-01-12 19:29] LABS: HCG, SERUM QUANTITATIVE 31505 MIU/ML; LIPASE 107 U/L (73-393)
== END 2022-01-12 20:14 | disposition home or self-care (01) ==
LOC: M ED 16:18 → EDBD 16:18 → M ED 20:14
DX: Z32.01 Encounter for pregnancy test, result positive (principal); O20.8 Other hemorrhage in early pregnancy; Z3A.01 Less than 8 weeks gestation of pregnancy; O16.1 Unspecified maternal hypertension, first trimester; O99.511 Diseases of the respiratory system complicating pregnancy, first trimester; J44.9 Chronic obstructive pulmonary disease, unspecified; J45.909 Unspecified asthma, uncomplicated; O99.341 Other mental disorders complicating pregnancy, first trimester; F90.9 Attention-deficit hyperactivity disorder, unspecified type; O99.611 Diseases of the digestive system complicating pregnancy, first trimester; K21.9 Gastro-esophageal reflux disease without esophagitis; Z88.8 Allergy status to other drugs, medicaments and biological substances; J30.81 Allergic rhinitis due to animal (cat) (dog) hair and dander; G89.29 Other chronic pain; O99.211 Obesity complicating pregnancy, first trimester; O99.331 Smoking (tobacco) complicating pregnancy, first trimester; F17.200 Nicotine dependence, unspecified, uncomplicated

== ENCOUNTER → 2022-02-11 | Outpatient (CLI) | payer OTHER ==
[~2022-02-11] MED LIST changes: +[UNRECOGNIZED DRUG - OTHER]
[2022-02-11 14:12] LABS: HEMATOCRIT 41.2 % (36.0-47.0); HEMOGLOBIN 13.5 g/dl (12.0-15.5); MEAN CORPUSCULAR HEMOGLOBIN 28.7 pg (27.0-33.0); MEAN CORPUSCULAR HGB CONC 32.8 g/dl (32.0-36.5); MEAN CORPUSCULAR VOLUME 87.5 fl (80.0-96.0); PLATELET COUNT, AUTOMATED 291 10^3/uL (150-450); RED BLOOD COUNT 4.71 10^6/uL (4.00-5.40); WHITE BLOOD COUNT 14.2 10^3/uL (4.0-10.0)
[2022-02-11 17:04] LABS: GC DNA AMPLIFICATION NEGATIVE (NEGATIVE)
[2022-02-11 18:13] LABS: HEPATITIS C VIRUS ABY INDEX < 0.0 INDEX (<0.8); HIV 1&2 SCREEN CENTAUR NEGATIVE (NEGATIVE)
== END ==
LOC: M PLALAB 11:10
PROVIDERS: ATTEND Specialist
DX: Z36.89 Encounter for other specified antenatal screening (principal)

== ENCOUNTER → 2022-03-08 | Outpatient (REF) | payer OTHER ==
[2022-03-08 17:34] LABS: APPEARANCE, URINE MANUAL HAZY (CLEAR); COLOR, URINE MANUAL YELLOW (YELLOW)
[2022-03-08 17:35] LABS: BILIRUBIN, URINE MANUAL NEGATIVE (NEGATIVE); BLOOD URINE MANUAL POSITIVE (NEGATIVE); GLUCOSE, URINE (UA) MANUAL NEGATIVE (NEGATIVE); KETONE, URINE MANUAL NEGATIVE (NEGATIVE); LEUKOCYTE ESTERASE, URINE MAN POSITIVE (NEGATIVE); NITRITE, URINE MANUAL POSITIVE (NEGATIVE); PROTEIN, URINE MANUAL TRACE mg/dL (NEGATIVE); UROBILINOGEN, URINE MANUAL NORMAL (NORMAL)
[2022-03-08 17:49] LABS: BACTERIA, URINE LARGE AMOUNT; HYALINE CAST, URINE NONE SEEN /lpf (0-1); SQUAMOUS EPITHELIAL CELL URINE LARGE AMOUNT /hpf (SMALL AMT)
== END ==
LOC: M LAB REF 16:22
PROVIDERS: ATTEND Physician Assistant Medical
DX: N39.0 Urinary tract infection, site not specified (principal)

== ENCOUNTER → 2022-03-12 | Outpatient (CLI) | payer OTHER | LOC: M PLALAB 11:30 | PROVIDERS: ATTEND Specialist | DX: Z34.82 Encounter for supervision of other normal pregnancy, second trimester (principal); Z3A.00 Weeks of gestation of pregnancy not specified ==

== ENCOUNTER → 2022-04-15 | Outpatient (CLI) | payer OTHER | LOC: M PLALAB 10:55 | PROVIDERS: ATTEND Specialist | DX: Z36.9 Encounter for antenatal screening, unspecified (principal) ==

== ENCOUNTER → 2022-05-20 | Outpatient (CLI) | payer OTHER | LOC: M WHC 09:57 | PROVIDERS: ATTEND Specialist | DX: Z34.82 Encounter for supervision of other normal pregnancy, second trimester (principal); Z3A.25 25 weeks gestation of pregnancy ==

== ENCOUNTER → 2022-05-28 | Outpatient (CLI) | payer OTHER ==
[2022-05-28 13:33] LABS: HEMATOCRIT 36.7 % (36.0-47.0); HEMOGLOBIN 12.1 g/dl (12.0-15.5); MEAN CORPUSCULAR HEMOGLOBIN 28.8 pg (27.0-33.0); MEAN CORPUSCULAR VOLUME 87.4 fl (80.0-96.0); PLATELET COUNT, AUTOMATED 291 10^3/uL (150-450); WHITE BLOOD COUNT 13.5 10^3/uL (4.0-10.0)
== END ==
LOC: M PLALAB 10:23
PROVIDERS: ATTEND Obstetrics & Gynecology
DX: O09.522 Supervision of elderly multigravida, second trimester (principal)

== ENCOUNTER 2022-06-26 15:54 | Outpatient (CLI) | payer OTHER ==
[~2022-06-26] VITALS: Ht 162.6 cm; Wt 123.4 kg
[2022-06-26 16:13] VITALS: BP 154/81
[2022-06-26 16:14] VITALS: BP 121/83
[2022-06-26 16:50] LABS: HEMATOCRIT 33.8 % (36.0-47.0); HEMOGLOBIN 11.2 g/dl (12.0-15.5); MEAN CORPUSCULAR HEMOGLOBIN 28.4 pg (27.0-33.0); MEAN CORPUSCULAR HGB CONC 33.1 g/dl (32.0-36.5); MEAN CORPUSCULAR VOLUME 85.6 fl (80.0-96.0); PLATELET COUNT, AUTOMATED 250 10^3/uL (150-450); RED BLOOD COUNT 3.95 10^6/uL (4.00-5.40); WHITE BLOOD COUNT 11.8 10^3/uL (4.0-10.0)
[2022-06-26 17:14] LABS: ALBUMIN 2.5 G/DL (3.2-5.2); ALKALINE PHOSPHATASE 98 U/L (46-116); ALT/SGPT 11 U/L (7.0-40); AST/SGOT 11 U/L (<34); BILIRUBIN,TOTAL < 0.2 MG/DL (0.3-1.2); BLOOD UREA NITROGEN 8 MG/DL (9-23); CALCIUM LEVEL 8.3 MG/DL (8.5-10.1); CARBON DIOXIDE LEVEL 27 MMOL/L (20-31); CHLORIDE LEVEL 103 MMOL/L (98-107); CREATININE FOR GFR 0.38 MG/DL (0.55-1.30); GLOMERULAR FILTRATION RATE > 60.0 (>60); GLUCOSE, FASTING 142 MG/DL (60-100); POTASSIUM SERUM 3.8 MMOL/L (3.5-5.1); SODIUM LEVEL 137 MMOL/L (136-145); TOTAL PROTEIN 5.9 G/DL (5.7-8.2)
== END 2022-06-26 18:59 | disposition home or self-care (01) ==
LOC: M LDO 15:54
PROVIDERS: ATTEND Obstetrics & Gynecology
DX: O26.893 Other specified pregnancy related conditions, third trimester (principal); R25.2 Cramp and spasm; Z3A.30 30 weeks gestation of pregnancy; O09.523 Supervision of elderly multigravida, third trimester; O99.213 Obesity complicating pregnancy, third trimester; E66.9 Obesity, unspecified; Z87.59 Personal history of other complications of pregnancy, childbirth and the puerperium; O99.333 Smoking (tobacco) complicating pregnancy, third trimester; F17.200 Nicotine dependence, unspecified, uncomplicated; Z88.8 Allergy status to other drugs, medicaments and biological substances

== ENCOUNTER → 2022-07-12 | Outpatient (CLI) | payer OTHER ==
[2022-07-12 15:33] LABS: HEMATOCRIT 36.5 % (36.0-47.0); HEMOGLOBIN 12.3 g/dl (12.0-15.5); MEAN CORPUSCULAR HEMOGLOBIN 28.7 pg (27.0-33.0); MEAN CORPUSCULAR HGB CONC 33.7 g/dl (32.0-36.5); MEAN CORPUSCULAR VOLUME 85.3 fl (80.0-96.0); PLATELET COUNT, AUTOMATED 268 10^3/uL (150-450); RED BLOOD COUNT 4.28 10^6/uL (4.00-5.40); WHITE BLOOD COUNT 11.7 10^3/uL (4.0-10.0)
[2022-07-12 15:57] LABS: LDH LACTATE DEHYDROGENASE 157 U/L (120-246)
[2022-07-12 15:58] LABS: ALT/SGPT 9 U/L (7.0-40); AST/SGOT 15 U/L (<34); BILIRUBIN,TOTAL < 0.2 MG/DL (0.3-1.2); CREATININE FOR GFR 0.48 MG/DL (0.55-1.30); GLOMERULAR FILTRATION RATE > 60.0 (>60)
== END ==
LOC: M PLALAB 14:37
PROVIDERS: ATTEND Obstetrics & Gynecology
DX: O16.3 Unspecified maternal hypertension, third trimester (principal); Z3A.00 Weeks of gestation of pregnancy not specified

== ENCOUNTER → 2022-07-12 | Outpatient (CLI) | payer OTHER | LOC: M WHC 13:39 | PROVIDERS: ATTEND Obstetrics & Gynecology | DX: O24.419 Gestational diabetes mellitus in pregnancy, unspecified control (principal); Z3A.00 Weeks of gestation of pregnancy not specified ==

== ENCOUNTER 2022-07-16 09:40 | Outpatient (CLI) | payer OTHER ==
[~2022-07-16] VITALS: Ht 162.6 cm; Wt 122.0 kg
[2022-07-16] MEDS ORDERED: METF-839 PO (09:56)
[2022-07-16] MEDS ORDERED: PNV1TABL16 PO (09:56)
[2022-07-16 10:08] VITALS: BP 124/67
[2022-07-16] MEDS ORDERED: HOME MED LIST COMPLETE! XX SCH (10:20)
[2022-07-16 11:16] VITALS: BP 128/75
== END 2022-07-16 11:50 | disposition home or self-care (01) ==
LOC: M LDO 09:40
PROVIDERS: ATTEND Obstetrics & Gynecology
DX: O26.893 Other specified pregnancy related conditions, third trimester (principal); R10.2 Pelvic and perineal pain; O09.513 Supervision of elderly primigravida, third trimester; Z3A.33 33 weeks gestation of pregnancy
CPT/HCPCS: 59025; G0463

== ENCOUNTER 2022-07-27 11:40 | Outpatient (CLI) | payer OTHER ==
[~2022-07-27] VITALS: Ht 162.6 cm; Wt 120.5 kg
[~2022-07-27 11:40] MED LIST changes: +METF-839 PO; +PNV1TABL16 PO
[2022-07-27 12:01] VITALS: BP 154/80
[2022-07-27] MEDS ORDERED: PERCOCET 5MG/325MG TAB PO ONE (12:20)
== END 2022-07-27 13:05 | disposition home or self-care (01) ==
LOC: M LDO 11:40
PROVIDERS: ATTEND Specialist
DX: O26.893 Other specified pregnancy related conditions, third trimester (principal); R10.2 Pelvic and perineal pain; O24.419 Gestational diabetes mellitus in pregnancy, unspecified control; Z3A.35 35 weeks gestation of pregnancy

== ENCOUNTER 2022-08-04 17:40 | Inpatient (IN) | payer OTHER ==
[~2022-08-04] VITALS: Ht 162.6 cm; Wt 121.9 kg
[2022-08-04] VITALS (8 sets, daily range): BP systolic 137–166; BP diastolic 66–96
[2022-08-04] MEDS ORDERED: TUMS500C PO (18:08)
[2022-08-04] MEDS ORDERED: PENICILLIN G POTASSIUM 5 MU IV 5 MU in D5W MINI-BAG PLUS 100 ML IV STA (18:19)
[2022-08-04] MEDS ORDERED: TRANEXAMIC ACID INJection 1,000 MG in NS 100 ML IV PRN (18:20)
[2022-08-04] MEDS ORDERED: OXYTOCIN DRIP 30 UNITS in IV 1 EA IV PRN ×4 (18:20)
[2022-08-04] MEDS ORDERED: LIDOCAINE 1% MDV 20ML VIAL INFIL PRN (18:20)
[2022-08-04] MEDS ORDERED: CARBOPROST TROMETHAMINE 250 MCG/ML AMP IM PRN (18:20)
[2022-08-04] MEDS ORDERED: OXYTOCIN INJ 10UNITS/ML 1ML VIAL IM PRN (18:20)
[2022-08-04 19:20] LABS: HEMATOCRIT 39.3 % (36.0-47.0); HEMOGLOBIN 13.3 g/dl (12.0-15.5); MEAN CORPUSCULAR HEMOGLOBIN 28.3 pg (27.0-33.0); MEAN CORPUSCULAR HGB CONC 33.8 g/dl (32.0-36.5); MEAN CORPUSCULAR VOLUME 83.6 fl (80.0-96.0); PLATELET COUNT, AUTOMATED 252 10^3/uL (150-450); WHITE BLOOD COUNT 13.3 10^3/uL (4.0-10.0)
[2022-08-04] MEDS: miSOPROStol 50MCG 1/2 TABLET PO SCH ×2 (19:38→23:38)
[2022-08-04 19:40] LABS: LDH LACTATE DEHYDROGENASE 200 U/L (120-246)
[2022-08-04] MEDS: BETAMETHASONE SOLUSPAN 6MG/ML 5ML VIAL IM SCH (19:40)
[2022-08-04 19:41] LABS: ALT/SGPT < 9 U/L (7.0-40); AST/SGOT < 8 U/L (<34); BILIRUBIN,TOTAL 0.2 MG/DL (0.3-1.2); CREATININE FOR GFR 0.47 MG/DL (0.55-1.30); GLOMERULAR FILTRATION RATE > 60.0 (>60)
[2022-08-04 20:28] LABS: TOTAL PROTEIN,RANDOM URINE 27.2 MG/DL (0.0-14.0)
[2022-08-04 20:33] LABS: CREATININE,RANDOM URINE 121.9 MG/DL
[2022-08-04] MEDS ORDERED: PEN G POT 3,000,000 UNIT/50 ML 3,000,000 UNIT in IV 1 EA IV SCH (22:20)
[2022-08-05] VITALS (47 sets, daily range): BP systolic 131–184; BP diastolic 67–114
[2022-08-05] MEDS: miSOPROStol 50MCG 1/2 TABLET PO SCH ×3 (03:46→11:25)
[2022-08-05] MEDS ORDERED: PENICILLIN G POTASSIUM 5 MU IV 5 MU in D5W MINI-BAG PLUS 100 ML IV STA (11:58)
[2022-08-05] MEDS ORDERED: OXYTOCIN DRIP 30 UNITS in IV 1 EA IV SCH (12:00)
[2022-08-05] MEDS ORDERED: PROMETHAZINE 25MG/ML 1ML VIAL IV ONE (12:50)
[2022-08-05] MEDS ORDERED: MORPHINE 4 MG/ML 1ML VIAL IV ONE (12:50)
[2022-08-05] MEDS: LR 1,000 ML IV SCH (13:34)
[2022-08-05] MEDS ORDERED: ePHEDrine SULFATE 25 MG/5 ML(5MG/ML) SYRINGE IVP PRN (16:25)
[2022-08-05] MEDS ORDERED: LR 500 ML IV PRN (16:25)
[2022-08-05] MEDS ORDERED: ONDANSETRON 4MG 2ML VIAL IV PRN (16:25)
[2022-08-05] MEDS ORDERED: EPIDURAL/PCA KEYS XX PRN (16:25)
[2022-08-05] MEDS ORDERED: diphenhydrAMINE 50MG/ML VIAL IV PRN (16:25)
[2022-08-05] MEDS ORDERED: FENTANYL/ROPIVACAINE/NACL BAG 100 ML EPIDURAL SCH (16:25)
[2022-08-05] MEDS ORDERED: NALOXONE INJ 0.4MG/1ML VIAL IV PRN (16:25)
[2022-08-05] MEDS: PEN G POT 3,000,000 UNIT/50 ML 3,000,000 UNIT in IV 1 EA IV SCH ×2 (16:32→20:33)
[2022-08-05] MEDS: BETAMETHASONE SOLUSPAN 6MG/ML 5ML VIAL IM SCH (19:43)
[2022-08-05] MEDS ORDERED: BICITRA 30ML SOLN UDC PO ONE (21:45)
[2022-08-05] MEDS ORDERED: AZITHROMYCIN INJ 500 MG, VIAL MATE ADAPTER 1 EACH in NS 250 ML IV ONE (21:45)
[2022-08-05] MEDS ORDERED: ceFAZolin SOD 3 GM IV Place Holder IV ONE (21:45)
[2022-08-05] MEDS ORDERED: ceFAZolin SOD 1 GM in D5W MINI-BAG PLUS 50 ML IV ONE (21:50)
[2022-08-05] MEDS ORDERED: ceFAZolin SOD 2 GM in IV 1 EA IV ONE (21:50)
[2022-08-05] MEDS ORDERED: PHENYLephrine 500MCG 5ML (100MCG/ML) SYRINGE As Ordered ONE (22:35)
[2022-08-05] MEDS ORDERED: ACETAMINOPHEN 1000MG 100ML IV BAG As Ordered ONE (22:35)
[2022-08-05] MEDS ORDERED: MORPHINE PRES-FREE INJ 10 MG/10 ML VIAL As Ordered ONE (22:35)
[2022-08-05] MEDS ORDERED: ONDANSETRON 4MG 2ML VIAL As Ordered ONE (22:35)
[2022-08-05] MEDS ORDERED: OXYTOCIN 30UNITS IN 0.9% NaCl 500ML IV BAG As Ordered ONE ×2 (22:35→23:00)
[2022-08-05] MEDS ORDERED: LIDOCAINE 2% W/EPINEPHRINE 20ML VIAL **PRES FREE As Ordered ONE (22:35)
[2022-08-05] MEDS ORDERED: KETOROLAC 60MG 2ML VIAL As Ordered ONE (22:35)
[2022-08-06] MEDS ORDERED: MEPERIDINE 25 MG/ML 1ML VIAL IV PRN
[2022-08-06] MEDS ORDERED: NALOXONE INJ 0.4MG/1ML VIAL IV PRN ×4
[2022-08-06] MEDS ORDERED: fentaNYL 100 MCG/2 ML INJECTION IV PRN
[2022-08-06] MEDS ORDERED: ONDANSETRON 4MG 2ML VIAL IV PRN
[2022-08-06] MEDS ORDERED: **NOTE PATIENT COMMENT** MISC XX SCH ×2
[2022-08-06] MEDS ORDERED: diphenhydrAMINE 50MG/ML VIAL IV PRN ×2
[2022-08-06] MEDS: PEN G POT 3,000,000 UNIT/50 ML 3,000,000 UNIT in IV 1 EA IV SCH ×2
[2022-08-06] MEDS ORDERED: METOCLOPRAMIDE INJ 10MG/2ML VIAL IV PRN ×2
[2022-08-06] MEDS ORDERED: HYDROMORPHONE HCL 0.5 MG/ 0.5 ML SYRINGE IV PRN
[2022-08-06] MEDS ORDERED: oxyCODONE 5MG TAB PO PRN
[2022-08-06] MEDS ORDERED: RHOGAM 300MCG (1500IU) INJ IM SCH (00:05)
[2022-08-06] MEDS ORDERED: LR 1,000 ML IV SCH (00:05)
[2022-08-06] MEDS ORDERED: ANUSOL HC CREAM 30GM TOP PRN (00:05)
[2022-08-06] MEDS ORDERED: OXYTOCIN DRIP 30 UNITS in IV 1 EA IV SCH (00:05)
[2022-08-06] MEDS ORDERED: ACETAMINOPHEN 500 MG TAB PO PRN (00:05)
[2022-08-06] MEDS ORDERED: PERCOCET 5MG/325MG TAB PO PRN (00:10)
[2022-08-06] MEDS ORDERED: HYDROMORPHONE HCL 0.5 MG/ 0.5 ML SYRINGE As Ordered ONE (00:19)
[2022-08-06] MEDS ORDERED: OXYTOCIN 30UNITS IN 0.9% NaCl 500ML IV BAG As Ordered ONE (00:37)
[2022-08-06 02:00] VITALS: BP 143/87
[2022-08-06] MEDS: LR 1,000 ML IV SCH (05:10)
[2022-08-06 06:00] VITALS: BP 149/76
[2022-08-06] MEDS: KETOROLAC 30 MG/ML 1ML VIAL IV SCH ×3 (06:04→19:14)
[2022-08-06] MEDS: SLF 3 ML SYR IV SCH ×6 (08:00→16:00)
[2022-08-06 08:17] LABS: MEAN CORPUSCULAR HEMOGLOBIN 28.4 pg (27.0-33.0); MEAN CORPUSCULAR HGB CONC 33.3 g/dl (32.0-36.5); MEAN CORPUSCULAR VOLUME 85.3 fl (80.0-96.0); PLATELET COUNT, AUTOMATED 250 10^3/uL (150-450); RED BLOOD COUNT 3.94 10^6/uL (4.00-5.40); WHITE BLOOD COUNT 18.7 10^3/uL (4.0-10.0)
[2022-08-06] MEDS: DOCUSATE SODIUM 100MG CAPSULE PO SCH ×2 (08:17→20:38)
[2022-08-06 08:18] LABS: HEMATOCRIT 33.6 % (36.0-47.0); HEMOGLOBIN 11.2 g/dl (12.0-15.5)
[2022-08-06] MEDS: PRENATAL VITAMINS CHEWABLE TABLET PO SCH (08:18)
[2022-08-06] MEDS: SIMETHICONE 80MG CHEW TAB PO PRN ×2 (08:18→12:09)
[2022-08-06 08:29] LABS: GLOMERULAR FILTRATION RATE > 60.0 (>60)
[2022-08-06] MEDS: ENOXAPARIN 40MG/0.4ML SYRINGE (J1650 PER 10MG) SC SCH (09:32)
[2022-08-06 10:00] VITALS: BP 158/72
[2022-08-06 14:00] VITALS: BP 147/75
[2022-08-06] MEDS: PERCOCET 5MG/325MG TAB PO PRN (17:14)
[2022-08-06 18:00] VITALS: BP 150/74
[2022-08-06 22:00] VITALS: BP 141/74
[2022-08-07 02:00] VITALS: BP 127/74
[2022-08-07] MEDS: IBUPROFEN 800 MG TAB PO SCH ×2 (02:09→10:46)
[2022-08-07] MEDS: PERCOCET 5MG/325MG TAB PO PRN (05:06)
[2022-08-07 06:00] VITALS: BP 134/63
[2022-08-07] MEDS: DOCUSATE SODIUM 100MG CAPSULE PO SCH (08:28)
[2022-08-07] MEDS: PRENATAL VITAMINS CHEWABLE TABLET PO SCH (08:28)
[2022-08-07] MEDS: SIMETHICONE 80MG CHEW TAB PO PRN (08:28)
[2022-08-07 10:15] VITALS: BP 162/79
[2022-08-07] MEDS: ENOXAPARIN 40MG/0.4ML SYRINGE (J1650 PER 10MG) SC SCH (10:46)
[2022-08-07] MEDS ORDERED: PERCOCET PO (13:17)
[2022-08-07] MEDS ORDERED: IBUP80TA PO (13:17)
[2022-08-07] MEDS ORDERED: COLA100C5 PO (13:17)
[2022-08-07] MEDS ORDERED: LABE100T71 PO (14:02)
[2022-08-07] MEDS ORDERED: LABETALOL 100MG TAB PO ONE (14:35)
[2022-08-07 14:44] VITALS: BP 164/84
[2022-08-08] MEDS ORDERED: MEASLES,MUMPS,RUBELLA VACCINE INJ (MMR-II) SC.IMMUN ONE (09:00)
== END 2022-08-07 15:46 | disposition home or self-care (01) | DRG 540 ==
LOC: M LDO 17:40 → M LDI 18:18 → M OBS 08-06 02:15
PROVIDERS: ADMIT Advanced Practice Midwife; ATTEND Obstetrics & Gynecology
PROC: 3E0P7GC Introduction of Other Therapeutic Substance into Female Reproductive, Via Natural or Artificial Opening (ICD-10-PCS; 2022-08-04)
PROC: 10D00Z1 Extraction of Products of Conception, Low, Open Approach (ICD-10-PCS; principal; 2022-08-06)
PROC: 0UB70ZZ Excision of Bilateral Fallopian Tubes, Open Approach (ICD-10-PCS; 2022-08-06)
DX: O14.94 Unspecified pre-eclampsia, complicating childbirth (principal); E66.9 Obesity, unspecified; O24.425 Gestational diabetes mellitus in childbirth, controlled by oral hypoglycemic drugs; O99.214 Obesity complicating childbirth; Z79.84 Long term (current) use of oral hypoglycemic drugs; Z3A.36 36 weeks gestation of pregnancy; O62.0 Primary inadequate contractions; O76 Abnormality in fetal heart rate and rhythm complicating labor and delivery; O09.523 Supervision of elderly multigravida, third trimester; Z37.0 Single live birth; Z30.2 Encounter for sterilization

== ENCOUNTER → 2023-07-07 | Outpatient (CLI) | payer OTHER ==
[~2023-07-07] MED LIST changes: +COLA100C5 PO; +IBUP80TA PO; +LABE100T40 PO; +PERCOCET PO; +PROHANCE 279.3MG/ML 15ML VIAL ONE; +PROHANCE 279.3MG/ML 5ML VIAL ONE; +TUMS500C PO
== END ==
LOC: M PLAIMG 11:59
PROVIDERS: ATTEND Student in an Organized Health Care Education/Training Program
DX: S46.911A Strain of unspecified muscle, fascia and tendon at shoulder and upper arm level, right arm, initial encounter (principal)

== ENCOUNTER → 2023-08-15 | Outpatient (REF) | payer OTHER ==
[~2023-08-15] MED LIST changes: -PROHANCE 279.3MG/ML 15ML VIAL ONE; -PROHANCE 279.3MG/ML 5ML VIAL ONE
== END ==
LOC: M SFHCPLAZ 18:13
PROVIDERS: ATTEND Student in an Organized Health Care Education/Training Program
DX: M54.41 Lumbago with sciatica, right side (principal)

== ENCOUNTER → 2023-08-23 | Outpatient (CLI) | payer OTHER ==
[2023-08-23 14:28] LABS: ALBUMIN 3.4 G/DL (3.2-5.2); ALKALINE PHOSPHATASE 99 U/L (46-116); ALT/SGPT 14 U/L (7.0-40); AST/SGOT 10 U/L (<34); BILIRUBIN,TOTAL 0.2 MG/DL (0.3-1.2); BLOOD UREA NITROGEN 11 MG/DL (9-23); CALCIUM LEVEL 9.5 MG/DL (8.5-10.1); CARBON DIOXIDE LEVEL 30 MMOL/L (20-31); CHLORIDE LEVEL 101 MMOL/L (98-107); CREATININE FOR GFR 0.59 MG/DL (0.55-1.30); GLOMERULAR FILTRATION RATE > 60.0 (>60); GLUCOSE, FASTING 103 MG/DL (60-100); POTASSIUM SERUM 4.9 MMOL/L (3.5-5.1); SODIUM LEVEL 138 MMOL/L (136-145); TOTAL PROTEIN 7.2 G/DL (5.7-8.2)
== END ==
LOC: M PLALAB 11:18
PROVIDERS: ATTEND Student in an Organized Health Care Education/Training Program
DX: M54.41 Lumbago with sciatica, right side (principal)

== ENCOUNTER 2023-09-22 07:52 | Emergency (ER) | payer OTHER ==
[~2023-09-22] VITALS: Ht 162.6 cm; Wt 117.6 kg
[2023-09-22] MEDS ORDERED: DEXTROAMP-AMPHETAMIN (08:13)
[2023-09-22] MEDS ORDERED: AMPH1CAP4 (08:13)
[2023-09-22] MEDS ORDERED: INCR1INH (08:13)
[2023-09-22] MEDS ORDERED: TIZA10TA (08:13)
[2023-09-22] MEDS ORDERED: NAPR-885 (08:13)
[2023-09-22 09:18] LABS: BASO # 0.1 10^3/uL (0.0-0.2); BASO % 0.8 % (0.0-1.0); EOS # 0.4 10^3/uL (0.0-0.5); EOS % 3.4 % (0.0-3.0); HEMATOCRIT 41.1 % (36.0-47.0); HEMOGLOBIN 13.5 g/dl (12.0-15.5); LYMPH # 2.4 10^3/uL (1.5-5.0); LYMPH % 21.3 % (24.0-44.0); MEAN CORPUSCULAR HEMOGLOBIN 27.8 pg (27.0-33.0); MEAN CORPUSCULAR HGB CONC 32.8 g/dl (32.0-36.5); MEAN CORPUSCULAR VOLUME 84.7 fl (80.0-96.0); MONO # 0.6 10^3/uL (0.0-0.8); MONO % 5.3 % (2.0-8.0); NEUTROPHILS # 7.8 10^3/uL (1.5-8.5); NEUTROPHILS % 68.8 % (36.0-66.0); PLATELET COUNT, AUTOMATED 376 10^3/uL (150-450); RED BLOOD COUNT 4.85 10^6/uL (4.00-5.40); WHITE BLOOD COUNT 11.3 10^3/uL (4.0-10.0)
[2023-09-22 09:25] LABS: ERYTHROCYTE SEDIMENTATION RATE 52 mm/hr (0-20)
[2023-09-22] MEDS ORDERED: ISOVUE-370 76% 100ML VIAL As Ordered ONE (09:28)
[2023-09-22 09:32] LABS: INR 1.04; PARTIAL THROMBOPLASTIN TIME 32.8 SECONDS (24.8-34.2); PROTHROMBIN TIME 13.3 SECONDS (12.5-14.5)
[2023-09-22 09:40] LABS: C REACTIVE PROTEIN QUANTITATIV 0.9 MG/DL (<1.0)
[2023-09-22 09:43] LABS: THYROID STIMULATING HORMONE 1.008 uIU/ML (0.55-4.78)
[2023-09-22 09:44] LABS: FREE T4 0.93 NG/DL (0.89-1.76)
[2023-09-22] MEDS: KETOROLAC 30 MG/ML 1ML VIAL IV ONE (10:04)
[2023-09-22] MEDS ORDERED: PRED20TA PO (10:47)
[2023-09-22] MEDS ORDERED: HYDR-3713 PO (10:47)
[2023-09-22] MEDS: dexAMETHasone 20MG/5ML VIAL IV ONE (11:21)
[2023-09-22 11:25] VITALS: BP 139/81; TEMP 97.8; O2SAT 96
== END 2023-09-22 11:32 | disposition home or self-care (01) ==
LOC: M ED 07:52
DX: S43.121A Dislocation of right acromioclavicular joint, 100%-200% displacement, initial encounter (principal); R22.1 Localized swelling, mass and lump, neck; J04.30 Supraglottitis, unspecified, without obstruction; M19.011 Primary osteoarthritis, right shoulder; H74.8X2 Other specified disorders of left middle ear and mastoid; F17.200 Nicotine dependence, unspecified, uncomplicated; K21.9 Gastro-esophageal reflux disease without esophagitis; Z88.7 Allergy status to serum and vaccine; Z88.8 Allergy status to other drugs, medicaments and biological substances; Z91.048 Other nonmedicinal substance allergy status; Z79.1 Long term (current) use of non-steroidal anti-inflammatories (NSAID); Z79.52 Long term (current) use of systemic steroids; Z79.899 Other long term (current) drug therapy; Y92.9 Unspecified place or not applicable; Y93.89 Activity, other specified; Y99.9 Unspecified external cause status
CPT/HCPCS: 70491; 71260; 73030; 80047; 84439; 84443; 85025; 85610; 85652; 85730; 86140; 93971; 96374; 96375; 99284; J1100; J1885; Q9967

== ENCOUNTER 2023-10-18 13:39 | Outpatient (RCR) | payer OTHER ==
[~2023-10-18 13:39] MED LIST changes: +AMPH1CAP4; +DEXTROAMP-AMPHETAMIN; +HYDR-3713 PO; +INCR1INH; +NAPR-885; +TIZA10TA
== END 2023-10-23 ==
LOC: M PT 13:39
PROVIDERS: ATTEND Orthopaedic Surgery
DX: M25.511 Pain in right shoulder (principal)

== ENCOUNTER 2023-10-25 08:36 | Outpatient (RCR) | payer OTHER | END 2023-11-23 | LOC: M PT 08:36 | PROVIDERS: ATTEND Orthopaedic Surgery | DX: M25.511 Pain in right shoulder (principal) ==

== ENCOUNTER → 2024-02-20 | Outpatient (CLI) | payer OTHER ==
[~2024-02-20] MED LIST changes: +AMPH1CAP14 PO; -AMPH1CAP4; +AMPH1CAP4 PO; -INCR1INH
[2024-02-20 17:19] LABS: HEMATOCRIT 44.3 % (36.0-47.0); HEMOGLOBIN 14.4 g/dl (12.0-15.5); INR 0.95; MEAN CORPUSCULAR HGB CONC 32.5 g/dl (32.0-36.5); PARTIAL THROMBOPLASTIN TIME 29.5 SECONDS (24.8-34.2); PLATELET COUNT, AUTOMATED 426 10^3/uL (150-450); RED BLOOD COUNT 5.15 10^6/uL (4.00-5.40)
[2024-02-20 17:39] LABS: ALBUMIN 3.5 G/DL (3.2-5.2); ALKALINE PHOSPHATASE 98 U/L (35-104); ALT/SGPT 14 U/L (7.0-40); AST/SGOT 12 U/L (<34); BILIRUBIN,DIRECT < 0.1 MG/DL (<0.4); BILIRUBIN,TOTAL 0.3 MG/DL (0.3-1.2); BLOOD UREA NITROGEN 9 MG/DL (9-23); CALCIUM LEVEL 9.4 MG/DL (8.5-10.1); CARBON DIOXIDE LEVEL 30 MMOL/L (20-31); CHLORIDE LEVEL 102 MMOL/L (98-107); CREATININE FOR GFR 0.59 MG/DL (0.55-1.30); GLOMERULAR FILTRATION RATE > 60.0 (>60); GLUCOSE, FASTING 108 MG/DL (60-100); PHOSPHORUS LEVEL 4.1 MG/DL (2.5-4.9); POTASSIUM SERUM 4.9 MMOL/L (3.5-5.1); SODIUM LEVEL 136 MMOL/L (136-145); TOTAL PROTEIN 7.5 G/DL (5.7-8.2)
== END ==
LOC: M PLALAB 16:14
PROVIDERS: ATTEND Student in an Organized Health Care Education/Training Program
DX: Z01.818 Encounter for other preprocedural examination (principal)

== ENCOUNTER 2024-02-21 08:17 | Day surgery (SDC) | payer OTHER ==
[~2024-02-21] VITALS: Ht 165.1 cm; Wt 120.9 kg
[2024-02-21] MEDS ORDERED: ALBUTEROL SULFATE 2.5MG/0.5ML INH NEB SOLN INH PRN (08:25)
[2024-02-21] MEDS ORDERED: DEXTROSE 50% 50ML SYRINGE IV PRN (08:25)
[2024-02-21] MEDS ORDERED: GLUCOSE 4 GM CHEW PO PRN (08:25)
[2024-02-21] MEDS ORDERED: GLUCAGON INJ 1MG VIAL SC PRN (08:25)
[2024-02-21] MEDS ORDERED: NS 1,000 ML IV SCH (08:25)
[2024-02-21] MEDS ORDERED: INSULIN LISPRO (NovoLOG) PER UNIT SC PRN (08:25)
[2024-02-21] MEDS: LEVALBUTEROL 1.25MG 0.5ML CONCENTRATE NEB NEB ONE (09:43)
[2024-02-21] MEDS ORDERED: fentaNYL 100 MCG/2 ML INJECTION As Ordered ONE (09:49)
[2024-02-21] MEDS ORDERED: LIDOCAINE 2% 100MG/5ML SDV (FOR ANES.) As Ordered ONE (09:49)
[2024-02-21] MEDS ORDERED: propofoL 200 MG/20 ML VIAL As Ordered ONE (09:49)
[2024-02-21] MEDS ORDERED: SUGAMMADEX SODIUM 500 MG/5 ML VIAL (BRIDION) As Ordered ONE (09:49)
[2024-02-21] MEDS ORDERED: MIDAZOLAM INJ 2MG/2ML VIAL As Ordered ONE (09:49)
[2024-02-21] MEDS ORDERED: ONDANSETRON 4MG 2ML VIAL As Ordered ONE (09:49)
[2024-02-21] MEDS ORDERED: ROCURONIUM BROMIDE 50MG/5ML VIAL As Ordered ONE (09:49)
[2024-02-21] MEDS ORDERED: ACETAMINOPHEN 1000MG 100ML IV BAG As Ordered ONE (09:50)
[2024-02-21] MEDS: OXYMETAZOLINE 0.05% NASAL SPRAY (AFRIN) As Ordered ONE (11:21)
[2024-02-21] MEDS: METHYLENE BLUE 0.5% (5MG/ML) 10 ML AMP (PROVAYBLUE) As Ordered ONE (11:22)
[2024-02-21] MEDS: LIDOCAINE W/EPINEPHRINE 1% 20ML VIAL As Ordered ONE (12:23)
[2024-02-21] MEDS ORDERED: METOCLOPRAMIDE INJ 10MG/2ML VIAL IV PRN (12:40)
[2024-02-21] MEDS ORDERED: ONDANSETRON 4MG 2ML VIAL IV PRN (12:40)
[2024-02-21] MEDS ORDERED: MEPERIDINE 25 MG/ML 1ML VIAL IV PRN (12:40)
[2024-02-21] MEDS ORDERED: diphenhydrAMINE 50MG/ML VIAL IV PRN (12:40)
[2024-02-21] MEDS ORDERED: fentaNYL 100 MCG/2 ML INJECTION IV PRN (12:40)
[2024-02-21 14:32] VITALS: BP 163/74; TEMP 97.8; O2SAT 92
[2024-02-21] MEDS ORDERED: dexmedeTOMIDine (4MCG/ML)200MCG/50ML BTL (PRECEDEX) As Ordered ONE (14:57)
== END 2024-02-21 14:28 | disposition home or self-care (01) ==
LOC: M SDC 08:17
PROVIDERS: ATTEND Otolaryngology
DX: J38.7 Other diseases of larynx (principal); R49.0 Dysphonia; J44.89 Other specified chronic obstructive pulmonary disease; J45.40 Moderate persistent asthma, uncomplicated; J34.2 Deviated nasal septum; I10 Essential (primary) hypertension; E78.00 Pure hypercholesterolemia, unspecified; F17.210 Nicotine dependence, cigarettes, uncomplicated; K21.9 Gastro-esophageal reflux disease without esophagitis; L73.2 Hidradenitis suppurativa; Z79.899 Other long term (current) drug therapy; Z79.51 Long term (current) use of inhaled steroids; Z88.8 Allergy status to other drugs, medicaments and biological substances; Z90.49 Acquired absence of other specified parts of digestive tract; G43.909 Migraine, unspecified, not intractable, without status migrainosus; F15.11 Other stimulant abuse, in remission
CPT/HCPCS: 31536; 81025; 88305; J0131; J1100; J2250; J2405; J3010; Q9968

== ENCOUNTER → 2024-03-06 | Outpatient (REF) | payer OTHER ==
[~2024-03-06] MED LIST changes: -CYCL5TAB PO; +CYCL5TAB4 PO
== END ==
LOC: M SFHCPLAZ 21:08
PROVIDERS: ATTEND Family Medicine
DX: E11.9 Type 2 diabetes mellitus without complications (principal)

== ENCOUNTER → 2024-03-20 | Outpatient (CLI) | payer OTHER ==
[2024-03-20 14:18] LABS: BASO # 0.1 10^3/uL (0.0-0.2); BASO % 0.6 % (0.0-1.0); EOS # 0.6 10^3/uL (0.0-0.5); EOS % 4.4 % (0.0-3.0); HEMATOCRIT 41.8 % (36.0-47.0); HEMOGLOBIN 13.4 g/dl (12.0-15.5); LYMPH # 3.6 10^3/uL (1.5-5.0); LYMPH % 28.4 % (24.0-44.0); MEAN CORPUSCULAR HGB CONC 32.1 g/dl (32.0-36.5); MEAN CORPUSCULAR VOLUME 87.4 fl (80.0-96.0); MONO # 0.8 10^3/uL (0.0-0.8); MONO % 5.9 % (2.0-8.0); NEUTROPHILS # 7.7 10^3/uL (1.5-8.5); NEUTROPHILS % 60.3 % (36.0-66.0); PLATELET COUNT, AUTOMATED 389 10^3/uL (150-450); RED BLOOD COUNT 4.78 10^6/uL (4.00-5.40); WHITE BLOOD COUNT 12.7 10^3/uL (4.0-10.0)
[2024-03-20 14:45] LABS: ALBUMIN 3.3 G/DL (3.2-5.2); ALKALINE PHOSPHATASE 104 U/L (35-104); ALT/SGPT 22 U/L (7.0-40); AST/SGOT 11 U/L (<34); BILIRUBIN,TOTAL 0.3 MG/DL (0.3-1.2); BLOOD UREA NITROGEN 8 MG/DL (9-23); CALCIUM LEVEL 9.1 MG/DL (8.5-10.1); CARBON DIOXIDE LEVEL 29 MMOL/L (20-31); CHLORIDE LEVEL 99 MMOL/L (98-107); CREATININE FOR GFR 0.59 MG/DL (0.55-1.30); GLOMERULAR FILTRATION RATE > 60.0 (>60); GLUCOSE, FASTING 95 MG/DL (60-100); POTASSIUM SERUM 4.2 MMOL/L (3.5-5.1); SODIUM LEVEL 135 MMOL/L (136-145); TOTAL PROTEIN 7.2 G/DL (5.7-8.2)
[2024-03-20 14:55] LABS: HEMOGLOBIN A1c 7.1 % (4.0-6.0)
== END ==
LOC: M PLALAB 11:36
PROVIDERS: ATTEND Orthopaedic Surgery
DX: G56.01 Carpal tunnel syndrome, right upper limb (principal)

== ENCOUNTER 2024-04-10 10:19 | Day surgery (SDC) | payer OTHER ==
[~2024-04-10] VITALS: Ht 165.1 cm; Wt 121.6 kg
[~2024-04-10 10:19] MED LIST changes: +DULO1CAP5 PO; +EZET10TA21 PO; +METF500T13 PO; +OMEP-173 PO
[2024-04-10] MEDS: ceFAZolin 2 GM/D5W 50 ML IV BAG As Ordered ONE (12:10)
[2024-04-10] MEDS ORDERED: fentaNYL 100 MCG/2 ML INJECTION As Ordered ONE (12:23)
[2024-04-10] MEDS ORDERED: MIDAZOLAM INJ 2MG/2ML VIAL As Ordered ONE (12:23)
[2024-04-10] MEDS ORDERED: ONDANSETRON 4MG 2ML VIAL As Ordered ONE (12:23)
[2024-04-10] MEDS ORDERED: ACETAMINOPHEN 1000MG/100ML IV BAG As Ordered ONE (12:23)
[2024-04-10] MEDS ORDERED: propofoL 200 MG/20 ML VIAL As Ordered ONE (12:23)
[2024-04-10] MEDS ORDERED: dexmedeTOMIDine (4MCG/ML)200MCG/50ML BTL (PRECEDEX) As Ordered ONE (12:23)
[2024-04-10] MEDS ORDERED: METOCLOPRAMIDE INJ 10MG/2ML VIAL As Ordered ONE (12:23)
[2024-04-10] MEDS ORDERED: LIDOCAINE 2% 100MG/5ML SDV (FOR ANES.) As Ordered ONE (12:23)
[2024-04-10] MEDS ORDERED: KETOROLAC 60MG 2ML VIAL As Ordered ONE (12:24)
[2024-04-10] MEDS ORDERED: ePHEDrine SULFATE 25 MG/5 ML(5MG/ML) SYRINGE As Ordered ONE (12:35)
[2024-04-10] MEDS: BACITRACIN OINTMENT 30GM TUBE As Ordered ONE (12:36)
[2024-04-10] MEDS ORDERED: CEPH500C PO (12:50)
[2024-04-10 13:43] VITALS: BP 162/79; TEMP 98.1; O2SAT 97
== END 2024-04-10 13:44 | disposition home or self-care (01) ==
LOC: M SDC 10:19
PROVIDERS: ATTEND Orthopaedic Surgery
DX: G56.01 Carpal tunnel syndrome, right upper limb (principal); J44.89 Other specified chronic obstructive pulmonary disease; E11.9 Type 2 diabetes mellitus without complications; J45.40 Moderate persistent asthma, uncomplicated; G47.33 Obstructive sleep apnea (adult) (pediatric); K21.9 Gastro-esophageal reflux disease without esophagitis; F90.2 Attention-deficit hyperactivity disorder, combined type; Z79.899 Other long term (current) drug therapy; Z79.51 Long term (current) use of inhaled steroids; Z79.84 Long term (current) use of oral hypoglycemic drugs; Z88.8 Allergy status to other drugs, medicaments and biological substances; Z88.6 Allergy status to analgesic agent; Z87.891 Personal history of nicotine dependence
CPT/HCPCS: 64721; 81025; J0131; J0665; J0690; J1100; J1885; J2250; J2405; J2765; J3010